=== PATIENT | female | born 1940 | race Caucasian/White ===

== ENCOUNTER 2023-06-08 12:44 | Outpatient (OUT) | payer MEDICARE, OTHER, SELFPAY ==
--- NOTE | 2023-06-08 12:47 | XR_ITS ---
[place] [id number] Patient Name: SHANNON ALVARADO MRN: [facility]:[id number] date: 1940 Sex: F Assigned Patient Location: RAD Current Patient Location: RAD Accession/Order Number: [id number] Exam Date: 06/08/2023 13:10 Report Date: 06/08/2023 13:33 At the request of: MISSAEL MICHAEL Procedure: XR DEXA axial skeleton EXAMINATION: XR DEXA axial skeleton HISTORY: Estrogen deficiency E28.39 COMPARISON: DEXA bone densitometry 04/24/2021 TECHNIQUE: Dual-energy X-ray absorptiometry (DXA) was performed. FINDINGS: SPINE ANALYSIS: Average bone mineral density is 1.118 g/cm2. T-score (standard deviation relative to young adult mean): -0.7 . -4.1 HIP ANALYSIS: Lowest bone mineral density is within the right femoral trochanter, 0.379 g/cm2. T-score (standard deviation relative to young adult mean): -4.1 . -15.6% change since prior study. XR/XR DEXA axial skeleton IMPRESSION: World [employer] Organization Classification: Osteoporosis - High Fracture Risk Electronically authenticated by: NEHA SALINAS Date: 06/08/2023 13:33
== END 2023-06-08 12:45 | disposition home or self-care (01) ==
LOC: RAD 12:44
PROVIDERS: PCP Internal Medicine; Visit Provider Internal Medicine
DX: E28.39 Other primary ovarian failure (principal); M81.0 Age-related osteoporosis without current pathological fracture
CPT/HCPCS: 77080

== ENCOUNTER 2023-07-22 07:26 | Outpatient (RCR) | payer MEDICARE, OTHER, SELFPAY ==
[2023-07-22] MEDS: ROMOSOZUMAB-AQQG 210 MG/2.34 ML SYRINGE INJ (12:11)
[2023-07-22 12:49] VITALS: BP 180/88; PULSE 68; RESP 20; TEMP 36.6; O2SAT 95
--- NOTE | 2023-07-22 12:57 | PC.NURSE ---
1100 Arrives in w/c with son. Alert oriented. 1115 Patient educated on Medication, importance of taking vit d and calcium. increasing oral fluids for 24-48 hours. Patient and son verbalize understanding 12:00 Medication administered sub q rt upper arm. 1220 No s/s of rxn. Released ambulatory
== END 2023-08-17 23:59 | disposition home or self-care (01) ==
LOC: INF 07:26
PROVIDERS: PCP Internal Medicine; Visit Provider Internal Medicine
DX: M81.0 Age-related osteoporosis without current pathological fracture (principal)
CPT/HCPCS: 96372; J3111

== ENCOUNTER 2023-08-19 07:32 | Outpatient (RCR) | payer MEDICARE, OTHER, SELFPAY ==
[2023-08-19] MEDS: ROMOSOZUMAB-AQQG 210 MG/2.34 ML SYRINGE SQ (11:13)
[2023-08-19 12:19] VITALS: BP 165/82; PULSE 55; RESP 16; TEMP 36.4; O2SAT 95
--- NOTE | 2023-08-19 12:20 | PC.NURSE ---
1055: Pt. to [facility] via w/c accompanied by son. VSS. Denies reaction to medication from past injection. 1113: Pt. medicated with Evenity 210mg IM to right arm x's 2 injections. No bleeding to sites. Pt. tolerated with min. c/o pain. 1115: D/c'd to home with son via w/c. Pt denies questions or needs.
== END 2023-09-16 23:59 | disposition home or self-care (01) ==
LOC: INF 07:32
PROVIDERS: PCP Internal Medicine; Visit Provider Internal Medicine
DX: M81.0 Age-related osteoporosis without current pathological fracture (principal)
CPT/HCPCS: 96372; J3111

== ENCOUNTER 2023-09-18 09:22 | Emergency (ER) | payer MEDICARE, OTHER, SELFPAY ==
[2023-09-18 09:30] VITALS: BP 200/80; PULSE 60; RESP 18; TEMP 36.7; O2SAT 95; BMI 26.8
--- NOTE | 2023-09-18 09:34 | XR_ITS ---
The [place] [id number] Patient Name: SHANNON ALVARADO MRN: [facility]:[id number] date: 1940 Sex: F Assigned Patient Location: ER Current Patient Location: ER Accession/Order Number: [id number] Exam Date: 09/18/2023 10:15 Report Date: 09/18/2023 12:32 At the request of: JONES SMITH Procedure: XR knee LT 4V EXAM: XR knee LT 4V 08/29/2023. COMPARISON STUDY: Left knee 08/07/2022. FINDINGS: AP, bilateral oblique, and lateral views for a total of five images were obtained. HISTORY: Fall, knee pain. XR/XR knee LT 4V IMPRESSION: 1. 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 Generalized osteopenia. 2. No convincing evidence of an acute fracture or dislocation. 3. A moderate-sized joint effusion is seen best on the lateral view. Electronically authenticated by: RAGHAVENDRA CLARK Date: 09/18/2023 12:32
--- NOTE | 2023-09-18 09:34 | XR_ITS ---
The [address] [address] Patient Name: SHANNON ALVARADO MRN: [facility]:[id number] date: 1940 Sex: F Assigned Patient Location: ER Current Patient Location: ER Accession/Order Number: [id number] Exam Date: 09/18/2023 10:15 Report Date: 09/18/2023 12:32 At the request of: JONES SMITH Procedure: XR hip RT 2V w/ pelvis EXAM: XR hip RT 2V w/ pelvis 09/18/2023 COMPARISON STUDY: CT of the pelvis 12/04/2019 FINDINGS: AP pelvis as well as frontal and frog-leg views of the right hip for 3 views obtained. HISTORY: fall, right hip injury XR/XR hip RT 2V w/ pelvis IMPRESSION: 1. No convincing evidence of an acute fracture or dislocation. 2. Chondrocalcinosis is identified with moderate arthritic changes about the pubic symphysis and mild symmetric arthritic changes about both SI joints. More severe arthritic changes about both hips are also again identified. This is similar to that seen on prior CT study from 12/04/2019. 3. The calcifications within the pelvis related to calcified uterine fibroids and pelvic phleboliths similar to that seen on prior study. Atherosclerosis with peripheral vascular arterial disease also noted. 4. Partial visualization of lumbar dextrocurvature with multilevel degenerative changes again noted. Electronically authenticated by: RAGHAVENDRA CLARK Date: 09/18/2023 12:32
[2023-09-18] MEDS: ACETAMINOPHEN 500 MG TABLET 1000 MG PO (09:48)
[2023-09-18 10:49] VITALS: BP 158/75; PULSE 58; RESP 18; O2SAT 95
--- NOTE | 2023-09-18 10:56 | ED_ITS ---
HPI - General Adult General Chief complaint: Extremity Injury, Lower Stated complaint: left knee pain Time Seen by Provider: 09/18/23 09:28 Source: patient Mode of arrival: ambulance Limitations: physical limitation History of Present Illness HPI narrative: the patient fell at home a few days ago and since then has been having pain and swelling in the left knee. She also sustained bruising to the anterior right thigh near the hip but denied any hip pain. 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 She told me that she has osteoarthritis and osteoporosis. She denied hitting her head or injuring the neck or back. She lives with her son, who cares for her. She uses a walker to ambulate. Related Data Home Medications Medication Instructions Recorded Confirmed amiodarone 200 mg tablet 100 mg PO .every other day 07/22/23 09/18/23 atorvastatin 40 mg tablet 40 mg PO .hs 07/22/23 09/18/23 calcium carbonate-vitamin D3 1 tab .Route BID 07/22/23 09/18/23 cholecalciferol (vitamin D3) 62.5 mcg PO 07/22/23 mcg (2,500 unit) capsule levetiracetam 500 mg tablet 500 mg PO Q12H 07/22/23 09/18/23 omeprazole 20 mg capsule,delayed 20 mg PO BID 07/22/23 09/18/23 release aspirin 81 mg tablet,delayed 81 mg PO DAILY 09/18/23 09/18/23 release (Adult Low Dose Aspirin) levetiracetam 250 mg tablet 500 mg PO Q12H 09/18/23 09/18/23 levothyroxine 75 mcg tablet 75 mcg PO Q24H 09/18/23 09/18/23 lisinopril 10 mg tablet 10 mg PO Q24H 09/18/23 09/18/23 Allergies Allergy/AdvReac Type Severity Reaction Status Date / Time penicillin G AdvReac Intermediate Verified 09/18/23 09:29 [facility] Social History Smoking status: Current every day smoker Exam Narrative Exam Narrative: Nurses note and vital signs reviewed and patient is not hypoxic. afebrile General: The patient appears well and in no apparent distress. Patient is resting comfortably on cart. GCS = 15. Skin: Warm, dry, no pallor noted. Head: Normocephalic, atraumatic Neck: Supple, trachea mid-line. Full ROM and no cervical spinal tenderness. Eyes: PERRLA, EOMI ENT: TMs clear, no hemotympanum detected, no blood in posterior oropharynx Cardiovascular: Regular Rate and Rhythm Respiratory: Patient is in no distress, no accessory muscle use, lungs are clear to auscultation, no wheezing, rales or rhonchi Chest Wall: no tenderness, no flail chest, contusion, abrasion, or signs of trauma. Back: No thoracic or lumbar tenderness to palpation. Negative straight leg raise bilaterally. Musculoskeletal: Tenderness and swelling to the left knee with pain with patellar manipulation. No left calf or popliteal tenderness. Normal ROM left LE but with pain in the knee. No sign of long bone fracture to the left hip, thigh, ankle and foot. Right hip and pelvis with no tenderness, no right LE swelling. Pulses at femoral, DP, PT, and popliteal were 2+ bilaterally. Moves upper extremities in all modalities with 5/5 strength. GI: Normal bowel sounds, no tenderness to palpation, no masses appreciated. No rebound, guarding, or rigidity noted. 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 Psychiatric: Cooperative Constitutional Vital Signs, click to edit/add: Last Vital Signs Temp 98.0 F 09/18/23 09:30 Pulse 58 L 09/18/23 10:49 Resp 18 09/18/23 10:49 BP 158/75 H 09/18/23 10:49 Pulse Ox 95 09/18/23 10:49 O2 Del Method Room Air 09/18/23 09:30 Course Vital Signs Vital signs: Vital Signs Temperature 98.0 F 09/18/23 09:30 Pulse Rate 60 09/18/23 09:30 Respiratory Rate 18 09/18/23 09:30 Blood Pressure 200/80 H 09/18/23 09:30 Pulse Oximetry 95 09/18/23 09:30 Oxygen Delivery Method Room Air 09/18/23 09:30 Temperature 98.0 F 09/18/23 09:30 Pulse Rate 58 L 09/18/23 10:49 Respiratory Rate 18 09/18/23 10:49 Blood Pressure 158/75 H 09/18/23 10:49 Pulse Oximetry 95 09/18/23 10:49 Oxygen Delivery Method Room Air 09/18/23 09:30 Medical Decision Making MDM Narrative Medical decision making narrative: xrays of the right hip/pelvis and the left knee are without fracture, dislocation, subluxation or other acute bony abnormality. She has marked osteoarthritis of all joints. Findings discussed with the patient and her son - patient able to be cared for at home by the son and can use the walker to assist with any necessary ambulation. Patient instructed to take Tylenol for pain and take all prescribed meds as scheduled. BP improved while in the ED. Imaging Data xr right hip/pelvis: Radiologist's impression: Patient: SHANNON ALVARADO MR#: [id number] : 1940 Acct:[id number] Age/Sex: 82 / F ADM Date: 09/18/23 Loc: ER Attending Dr: Ordering Physician: Jones Smith D.O. Date of Service: 09/18/23 Procedure(s): XR hip RT 2V w/ pelvis Accession Number(s): [id number] cc: ~ [place] [id number] Patient Name: SHANNON ALVARADO MRN: [id number] date: 1940 Sex: F Assigned Patient Location: ER Current Patient Location: ER Accession/Order Number: [id number] Exam Date: 09/18/2023 10:15 Report Date: 09/18/2023 11:36 At the request of: JONES SMITH Procedure: XR hip RT 2V w/ pelvis EXAM: XR hip RT 2V w/ pelvis 09/18/2023 COMPARISON STUDY: CT of the pelvis 12/04/2019 FINDINGS: AP pelvis as well as frontal and frog-leg views of the right hip for 3 views obtained. HISTORY: fall, right hip injury XR/XR hip RT 2V w/ pelvis IMPRESSION: 1. No convincing evidence of an acute fracture or dislocation. 2. Chondrocalcinosis is identified with moderate arthritic changes about the pubic symphysis and mild symmetric arthritic changes about both SI joints. More severe arthritic changes about both hips are also again identified. This is similar to that seen on prior CT study from 12/04/2019. 3. The calcifications within the pelvis related to calcified uterine fibroids and pelvic phleboliths similar to that seen on prior study. Atherosclerosis with peripheral vascular arterial disease also noted. 4. Partial visualization of lumbar dextrocurvature with multilevel degenerative changes again noted. Electronically authenticated by: RAGHAVENDRA CLARK Date: 09/18/2023 11:36 xr knee: Radiologist's impression: Patient: SHANONN ALVARADO MR#: [id number] : 1940 Acct:[id number] Age/Sex: 82 / F ADM Date: 09/18/23 Loc: ER Attending Dr: Ordering Physician: Jones Smith D.O. Date of Service: 09/18/23 Procedure(s): XR knee LT 4V Accession Number(s): [id number] cc: ~ [place] [id number] Patient Name: SHANNON ALVARADO MRN: [facility]:[id number] date: 1940 Sex: F Assigned Patient Location: ER Current Patient Location: ER Accession/Order Number: [id number] Exam Date: 09/18/2023 10:15 Report Date: 09/18/2023 11:24 At the request of: JONES SMITH Procedure: XR knee LT 4V EXAM: XR knee LT 4V 08/29/2023. COMPARISON STUDY: Left knee 08/07/2022. FINDINGS: AP, bilateral oblique, and lateral views for a total of five images were obtained. HISTORY: Fall, knee pain. XR/XR knee LT 4V IMPRESSION: 1. 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 Generalized osteopenia. 2. No convincing evidence of an acute fracture or dislocation. 3. A moderate-sized joint effusion is seen best on the lateral view. Electronically authenticated by: RAGHAVENDRAANGELLA CLARK Date: 09/18/2023 11:24 Discharge Plan Discharge Chief Complaint: Extremity Injury, Lower Clinical Impression: Left knee sprain, Contusion Patient Disposition: Home, Self-Care Time of Disposition Decision: 11:02 Prescriptions / Home Meds: No Action amiodarone 200 mg tablet 100 mg PO .every other day atorvastatin 40 mg tablet 40 mg PO .hs levetiracetam 500 mg tablet 500 mg PO Q12H omeprazole 20 mg capsule,delayed release(DR/EC) 20 mg PO BID cholecalciferol (vitamin D3) 62.5 mcg (2,500 unit) capsule PO calcium carbonate-vitamin D3 [Caltrate 600 plus D] 1 tab .Route BID levetiracetam 250 mg tablet 500 mg PO Q12H levothyroxine 75 mcg tablet 75 mcg PO Q24H lisinopril 10 mg tablet 10 mg PO Q24H aspirin [Adult Low Dose Aspirin] 81 mg tablet,delayed release (DR/EC) 81 mg PO DAILY Instructions: Knee Sprain (ED), Contusion in Adults (ED) Stand Alone Forms: Portal Instructions Referrals: MISSAEL MICHAEL [Primary Care Provider] - 1 week Discharge Date/Time: 09/18/23 11:12
== END 2023-09-18 11:12 | disposition home or self-care (01) ==
PROVIDERS: Emergency Provider Emergency Medicine; PCP Internal Medicine
DX: S83.92XA Sprain of unspecified site of left knee, initial encounter (principal); S80.02XA Contusion of left knee, initial encounter; W19.XXXA Unspecified fall, initial encounter; M19.90 Unspecified osteoarthritis, unspecified site; M81.0 Age-related osteoporosis without current pathological fracture; Z79.82 Long term (current) use of aspirin; Z79.890 Hormone replacement therapy; Z79.899 Other long term (current) drug therapy; F17.210 Nicotine dependence, cigarettes, uncomplicated
CPT/HCPCS: 73502; 73564; 99284

== ENCOUNTER 2023-09-23 07:34 | Outpatient (RCR) | payer MEDICARE, OTHER, SELFPAY ==
[2023-09-23] MEDS: ROMOSOZUMAB-AQQG 210 MG/2.34 ML SYRINGE SQ (11:17)
[2023-09-23 11:37] VITALS: BP 186/91; PULSE 64; RESP 16; TEMP 36.4; O2SAT 98
--- NOTE | 2023-09-23 11:39 | PC.NURSE ---
1048 Arrival per wheelchair accompanied by son. Alert oriented, offers no complaints. 1110 Injection to left upper arm as ordered, tolerated well 1120 Released per wheelchair with son.
== END 2023-09-23 11:20 | disposition home or self-care (01) ==
LOC: INF 07:34
PROVIDERS: PCP Internal Medicine; Visit Provider Internal Medicine
DX: M81.0 Age-related osteoporosis without current pathological fracture (principal)
CPT/HCPCS: 96372; J3111

== ENCOUNTER 2023-10-21 07:22 | Outpatient (RCR) | payer MEDICARE, OTHER, SELFPAY ==
[2023-10-21 10:33] VITALS: BP 161/76; PULSE 62; RESP 18; TEMP 36.8; O2SAT 95
[2023-10-21] MEDS: ROMOSOZUMAB-AQQG 210 MG/2.34 ML SYRINGE SQ (11:02)
== END 2023-11-17 23:59 | disposition home or self-care (01) ==
LOC: INF 07:22
PROVIDERS: PCP Internal Medicine; Visit Provider Internal Medicine
DX: M81.0 Age-related osteoporosis without current pathological fracture (principal)
CPT/HCPCS: 96372; J3111

== ENCOUNTER 2023-11-18 07:24 | Outpatient (RCR) | payer MEDICARE, OTHER, SELFPAY ==
[2023-11-18 10:45] VITALS: BP 127/78; PULSE 51; RESP 18; TEMP 36.4; O2SAT 96
[2023-11-18] MEDS: ROMOSOZUMAB-AQQG 210 MG/2.34 ML SYRINGE SQ (11:01)
--- NOTE | 2023-11-18 11:06 | PC.NURSE ---
Patient is here for evenity injection, she denies any complaints. She tolerated injection well and was discharged home via wheelchair.
== END 2023-11-18 11:15 | disposition home or self-care (01) ==
LOC: INF 07:24
PROVIDERS: PCP Internal Medicine; Visit Provider Internal Medicine
DX: M81.0 Age-related osteoporosis without current pathological fracture (principal)
CPT/HCPCS: 96372; J3111

== ENCOUNTER 2023-12-23 07:35 | Outpatient (RCR) | payer MEDICARE, OTHER, SELFPAY ==
[2023-12-23 10:52] VITALS: BP 143/75; PULSE 56; RESP 14; TEMP 36.2; O2SAT 97
--- NOTE | 2023-12-23 10:54 | PC.NURSE ---
1050: Pt. to [facility] via w/c for monthly injection. Accompanied by son. VSS. Denies needs or c/o.
[2023-12-23] MEDS: ROMOSOZUMAB-AQQG 210 MG/2.34 ML SYRINGE SQ (10:56)
--- NOTE | 2023-12-23 11:01 | PC.NURSE ---
1056: Medicated with Evenity SQ to right upper arm x 2 injection sites. Trace bleeding to site #1, bandaid applied. No bleeding to #2 injection site. Pt. tolerated without c/o. 1100: Pt without c/o or needs. no new bleeding to injection sites. D/c'd via w/c to home with son.
== END 2023-12-23 11:15 | disposition home or self-care (01) ==
LOC: INF 07:35
PROVIDERS: PCP Internal Medicine; Visit Provider Internal Medicine
DX: M81.0 Age-related osteoporosis without current pathological fracture (principal)
CPT/HCPCS: 96372; J3111

== ENCOUNTER 2024-05-28 17:12 | Emergency (ER) | payer MEDICARE, OTHER, SELFPAY ==
[2024-05-28] VITALS (16 sets, daily range): BP systolic 120–150; BP diastolic 57–87; PULSE 55–74; TEMP 36.4; O2SAT 88–98; BMI 28.6
--- NOTE | 2024-05-28 17:18 | XR_ITS ---
The [address] [address] Patient Name: SHANNON ALVARADO MRN: [facility]:[id number] date: 1940 Sex: F Assigned Patient Location: ED.MAIN Current Patient Location: ED.MAIN Accession/Order Number: [id number] Exam Date: 05/28/2024 17:25 Report Date: 05/28/2024 19:47 At the request of: SOLITARIO JO Procedure: XR hip RT min 2V IMAGES REVIEWED: XR hip RT min 2V COMPARISON: 09/18/2023. CLINICAL INDICATION: fall, pain FINDINGS/IMPRESSION: 1. Severe osteoarthritis right hip. 2. No evidence of acute osseous abnormality of the right hip. 3. Osteopenia. Electronically authenticated by: TUNDE BROWN Date: 05/28/2024 19:47
--- OUTSIDE RECORDS SUMMARY | 2024-05-28 17:24 | XMS_ITS | CCD ---
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 Tin Saldivar Referring Unavailable Farhad BOONE, Dr. Tin Saldivar Attending Unavailable Jamir BOONE, Dr. Fernando Beaver Primary Care Fatimah vailable Jamir BOONE, Dr. Fernando Beaver Primary Care Fatimah vailable Farhad BOONE, Dr. Tin Saldivar Referring Unavailable Farhad BOONE, Dr. Tin Saldivar Attending Unavailable Tin Curtis Admitting Unavail able Tin Curtis Attending Unavail able Fernando Bowie Primary Care Unavailable Tin Curtis Attending Unavail able Fernando Bowie Primary Care Unavailable Tin Curtis Admitting Unavail Fernando Fisher MD Primary Care Provider TIN CURTIS Referring Unavailable FERNANDO BOWIE Primary Care Unavailable TIN CURTIS Attending Unavailable FERNANDO BOWIE Primary Care Unavailable NEHA BELTRE Attending Unavailable FERNANDO BOWIE Attending Unavailable NEHA BELTRE Attending Unavailable MATEO DSOUZA Attending Unavailable NEHA BELTRE Attending Unavailable FERNANDO BOWIE Attending Unavailable FERNANDO BOWIE Attending Unavailable Allergies Allergy Classification Reported Allergen(s) Allergy Type Date of Onset Reaction(s) Facility (14 sources) meloxicam; Translations: [meloxicam] Drug Allergy 3 Diarrhea [facility] (12 sources) Penicillins; Translations: [Penicillins] Allergy to drug (finding) 0 Flushing, Edema, Swelling of Lip/Tongue/Thro at [facility] (1 source) meloxicam Drug Allergy [facility] (1 source) Penicillins Drug allergy (disorder) 6 [facility] (1 source) Penicillins Drug allergy (disorder) 0 [facility] (1 source) Penicillins Drug Allergy 3 Swelling, Other [facility] Work Phone: Medications Current Medications Medication Drug Class(es) Dates Sig (Normalized) Sig (Original) acetaminophen 325 mg / HYDROcodone bitartrate 5 mg oral tablet (4 sources) Opioid Agonist Start: 03-27-2019 take 0.5 tablet by mouth every four to six hours Hydrocodone-Acetami nophen ([place]) 5-325 mg Tablet Active 0.5 TAB PO EVERY 4-6 HOURS 7 3 December 12, 2019 amiodarone hydrochloride 200 mg oral tablet (16 sources) Antiarrhythmic Start: 10-01-2023 End: 03-01-2025 amiodarone (Pacerone) 200 mg tablet Indications: Paroxysmal atrial fibrillation (Multi) , High risk medication use Take 1 tablet (200 mg) by mouth once daily. Take one tablet alternating every other day with 1/2 tablet 90 tablet 3 03/01/2024 03/01/2025 Active Start: 08-11-2017 take 200 mg by mouth every other day Amiodarone Active 200 MG PO Q2D August 10, 2017 11:00pm alernate with 100mg Start: 08-11-2017 take 200 mg by mouth every other day Amiodarone Active 100 MG PO every other day August 10, 2017 11:00pm alternates QOD with 200mg Amiodarone HCl - 200 MG Oral Tablet TAKE 1 TABLET alternating with 1/2 tablet daily Quantity: 90 Refills: 1 Ordered: 11-Aug-2022 Geoff Neal APRN-Candie ORTIZ Active aspirin 81 mg delayed release oral tablet (13 sources) Platelet Aggregation Inhibitor, Nonsteroidal Anti-inflammatory Drug Start: 08-11-2017 take 81 mg by mouth once daily Aspirin Active 81 MG PO Daily August 10, 2017 11:00pm atorvastatin 40 mg oral tablet (13 sources) HMG-CoA Reductase Inhibitor Start: 08-11-2017 take 1 tablet by mouth once daily Atorvastatin (Lipitor) 40 mg Tablet Active 40 MG PO Daily August 10, 2017 11:00pm cholecalciferol 0.05 mg oral tablet (13 sources) Vitamin D Start: 12-12-2019 take 50 ug by mouth once daily Cholecalciferol (Vitamin D3) Active 50 MCG PO Daily December 12, 2019 12:00am End: 03-01-2024 take 1 tablet by mouth once daily cholecalciferol (Vitamin D-3) 5,000 Units tablet Take 1 tablet (5,000 Units) by mouth once daily. 03/01/2024 Discontinued (Therapy completed) docusate sodium 100 mg oral capsule (2 sources) Start: 12-12-2019 take 100 mg by mouth twice daily Docusate Sodium Active 100 MG PO Twice daily December 12, 2019 12:00am levETIRAcetam 500 mg oral tablet (13 sources) Start: 08-11-2017 take 500 mg by mouth every twelve hours Levetiracetam Active 500 MG PO Q12H August 10, 2017 11:00pm take 1 tablet by mouth twice fransisco ly levETIRAcetam (Keppra) 500 mg tablet Take 1 tablet (500 mg) by mouth 2 times a day. Active levothyroxine sodium 0.1 mg oral capsule (13 sources) l-Thyroxine Start: 08-11-2017 take 100 ug by mouth once daily Levothyroxine Active 100 MCG PO Daily August 10, 2017 11:00pm take 1 tablet by boone th once daily before mealtime levothyroxine (Synthroid, Levoxyl) 75 mc g tablet Take 1 tablet (75 mcg) by mouth once daily in the morning. Take before meals. Take on an empty stomach. Active lisinopril 10 mg oral tablet (13 sources) Angiotensin Converting Enzyme Inhibitor Start: 08-11-2017 take 10 mg by mouth once daily Lisinopril Active 10 MG PO Daily August 10, 2017 11:00pm omeprazole 20 mg delayed release oral tablet (13 sources) Proton Pump Inhibitor Start: 08-11-2017 take 1 tablet by mouth twice daily Omeprazole Magnesium (Prilosec Otc) 20 mg Tablet,Delayed Release (Dr/Ec) Active 20 MG PO Twice daily August 10, 2017 11:00pm take 1 tablet by mouth once fernanda y omeprazole OTC (PriLOSEC OTC) 20 mg EC tablet Take 1 tablet (20 mg) by mouth once daily. Active Completed/Discontinued Medications Medication Drug Class(es) Dates Sig (Normalized) Sig (Original) amLODIPine 2.5 mg oral tablet (13 sources) Dihydropyridine Calcium Channel Roberto Start: 08-11-2017 End: 12-12-2019 take 1 tablet by mouth once daily Amlodipine (Norvasc) 2.5 mg Tablet Discontinued 2.5 MG PO Daily August 10, 2017 11:00pm December 12, 2019 12:18pm Calcium Citrate + D3 200-250 MG-UNIT TABS (6 sources) Calcium Citrate + D3 200-250 MG-UNIT TABS TAKE 1 TABLET 3 times daily Quantity: 0 Refills: 0 Ordered: 06-Nov-2021 DO Active calcium citrate 1190 mg / cholecalciferol 0.005 mg oral tablet (7 sources) Vitamin D Start: 08-11-2017 End: 12-12-2019 take 1 tablet by mouth three times daily Calcium Citrate-Vitamin D3 (Citracal Regular) 250 mg calcium- 200 unit Tablet Discontinued 1 TAB PO Three times daily August 10, 2017 11:00pm December 12, 2019 12:18pm take 1 tablet by boone three times daily calcium citrate-vitamin D3 200 mg-6.25 m cg (250 unit) tablet Take 1 tablet by mouth 3 times a day. Active cephalexin 500 mg oral tablet (2 sources) Cephalosporin Antibacterial Start: 08-13-2017 End: 08-20-2017 take 500 mg by mouth four times daily Cephalexin Discontinued 500 MG PO Four times daily 28 7 August 12, 2017 11:00pm August 19, 2017 11:04pm 1 ml denosumab 60 mg/ml prefilled syringe (10 sources) RANK Ligand Inhibitor End: 03-01-2024 denosumab (Prolia) 60 mg/mL syringe Inject 1 mL (60 mg total) under the skin. Every 6 months 03/01/2024 Discontinued (Therapy completed) zinc gluconate 50 mg oral tablet (5 sources) take 1 tablet by mouth once daily Zinc 50 MG Oral Tablet TAKE 1 TABLET DAILY. Quantity: 0 Refills: 0 Ordered: 09-Dec-2022 DO Active Problems Active Problems Problem Classification Problem Date Documented Date Episodic/Chronic Acute cerebrovascular disease (20 sources) Cerebrovascular accident; Translations: [Cerebral artery occlusion, unspecified with cerebral infarction] Onset: 10-01-2023 03-01-2024 Chronic Cardiac dysrhythmias (19 sources) Paroxysmal atrial fibrillation; Translations: [Atrial fibrillation] Onset: 12-29-2022 03-01-2024 Chronic Chronic obstructive pulmonary disease and bronchiectasis (1 source) Chronic obstructive pulmonary disease with (acute) exacerbation; Translations: [COPD WITH ACUTE EXACERBATION] Onset: 12-29-2022 Chronic Diabetes mellitus with complications (1 source) Type 2 diabetes mellitus with diabetic chronic kidney disease; Translations: [TYPE 2 DM W/DIABETIC CKD] Onset: 12-29-2022 Chronic Diabetes mellitus without complication (1 source) Type 2 diabetes mellitus without complications; Translations: [TYPE 2 DM WITHOUT COMPLICATIONS] Onset: 08-10-2022 Chronic Disorders of lipid metabolism (15 sources) Hyperlipidemia; Translations: [Other and unspecified hyperlipidemia] Onset: 10-01-2023 03-01-2024 Chronic Epilepsy; convulsions (1 source) Epilepsy, unspecified, not intractable, without status epilepticus; Translations: [EPILEPSY UNS NOT INTRACT W/O SE] Onset: 12-29-2022 Chronic Essential hypertension (18 sources) Essential hypertension; Translations: [Unspecified essential hypertension] Onset: 08-10-2022 08-12-2017 Chronic Hypertension with complications and secondary hypertension (1 source) Hypertensive chronic kidney disease with stage 1 through stage 4 chronic kidney disease, or unspecified chronic kidney disease; Translations: [HTN CKD W/STAGE 1-4 CKD/UNS CKD] Onset: 12-29-2022 Chronic Malaise and fatigue (2 sources) Asthenia; Translations: [Weakness] 08-12-2017 Episodic Menopausal disorders (1 source) Hormone replacement therapy; Translations: [HORMONE REPLACEMENT THERAPY] Onset: 12-29-2022 Episodic Open wounds of head; neck; and trunk (2 sources) Tear of skin; Translations: [Skin tear] 11-19-2017 Episodic Osteoarthritis (2 sources) Bilateral primary osteoarthritis of knee; Translations: [Unilateral primary osteoarthritis, left knee] Onset: 08-10-2022 Chronic Other aftercare (11 sources) Drug therapy finding; Translations: [Long-term (current) use of other medications] Episodic Other aftercare (1 source) FDC (current) use of aspirin; Translations: [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 OF ASPIRIN] Onset: 12-29-2022 Episodic Other aftercare (2 sources) Taking high risk medication; Translations: [Other rat exterminator (current) drug therapy] Onset: 01-10-2024 03-01-2024 Episodic Other aftercare (4 sources) Other prison (current) drug therapy; Translations: [Other rat exterminator (current) drug therapy] Onset: 01-10-2024 Episodic Other and ill-defined cerebrovascular disease (1 source) Cerebrovascular disease, unspecified; Translations: [CEREBROVASCULAR DISEASE UNSPECIFIED] Onset: 12-29-2022 Chronic Other circulatory disease (2 sources) H/O: atrial fibrillation; Translations: [Personal history of other diseases of the circulatory system] 08-12-2017 Episodic Other injuries and conditions due to external causes (2 sources) Muscle strain; Translations: [Other injury of unspecified body region, initial encounter] 11-19-2017 Episodic Other injuries and conditions due to external causes (2 sources) Contusion; Translations: [Other injury of unspecified body region, initial encounter] 03-27-2019 Episodic Other nutritional; endocrine; and metabolic disorders (2 sources) Body mass index 25-29 - overweight; Translations: [Body Mass Index 28.0-28.9, adult] Episodic Other nutritional; endocrine; and metabolic disorders (11 sources) Overweight; Translations: [Overweight] Episodic Other nutritional; endocrine; and metabolic disorders (9 sources) Overweight in adulthood with body mass index of 25 or more but less than 30; Translations: [Body Mass Index 28.0-28.9, adult] Episodic Residual codes; unclassified (2 sources) Dependence on wheelchair; Translations: [Wheelchair dependence] Chronic Residual codes; unclassified (10 sources) Other specified health status; Translations: [Anticoagulant not tolerated] Onset: 01-10-2024 01-10-2024 Episodic Skin and subcutaneous tissue infections (2 sources) Cellulitis of lower limb; Translations: [Cellulitis of left lower limb] 08-12-2017 Episodic Sprains and strains (2 sources) Strain of neck muscle; Translations: [Strain of muscle, fascia and tendon at neck level, initial encounter] 12-12-2019 Episodic Substance-related disorders (17 sources) Smokes tobacco daily; Translations: [Tobacco use disorder] Onset: 12-29-2022 08-12-2017 Chronic Comment on above: 4-5 CIGARETTES DAILY ; 2-3 CIGARETTES DAILY ; Superficial injury; contusion (2 sources) Contusion of scalp; Translations: [Contusion of scalp, initial encounter] 12-12-2019 Episodic Unclassified (3 sources) COUGH, UNSPECIFIED; Translations: [COUGH, UNSPECIFIED] Onset: 12-29-2022 Unclassified (1 source) CHRN KIDNEY DISEASE STG 3 UNSP; Translations: [CHRN KIDNEY DISEASE STG 3 UNSP] Onset: 12-29-2022 Unclassified (1 source) CONTACT W/AND (SUSP) EXPOS COVID-19; Translations: [CONTACT W/AND (SUSP) EXPOS COVID-19] Onset: 12-29-2022 Past or Other Problems Problem Classification Problem Date Documented Date Episodic/Chronic Other non-traumatic joint disorders (4 sources) Pain in left knee; Translations: [PAIN IN LEFT KNEE] Onset: 08-07-2022 Episodic Other screening for suspected conditions (not mental disorders or infectious disease) (10 sources) Echocardiogram abnormal; Translations: [Nonspecific (abnormal) findings on radiological and other examination of other intrathoracic organs] Onset: 10-01-2023 10-01-2023 Episodic Unclassified (1 source) COUGH, UNSPECIFIED; Translations: [COUGH, UNSPECIFIED] Onset: 12-28-2022 Unclassified (1 source) Onset: 03-01-2024 03-01-2024 Results Test Name Value Interpretation Reference Range Facility ECG 12 [place] 03-02-2024 Sinus bradycardia with first-degree AV block Left anterior fascicular block LVH with secondary ST changes QTc 476 ms [facility] Work Phone: XR Chest 2 Viewson 4 These images are not reportable by radiology and will not be interpreted by Radiologists. IMAGING Aspartate Amino Transferaseo n 11-08-2023 AST [Catalytic activity/Vol] 12 U/L Low 13-39 [facility] Comment on above: Performed By: #### B MP, AST, TSH3 #### [facility] [address] Basic Metabolic Panelon 10-19 Anion gap [Moles/Vol] 9.7 mmol/L Normal 6.0-15.0 [facility] Comment on above: Performed By: #### B MP, AST, TSH3 #### [facility] [address] Calcium [Mass/Vol] 9.2 mg/dL Normal 8.6-10.3 [facility] Comment on above: Performed By: #### B MP, AST, TSH3 #### [facility] [address] Chloride [Moles/Vol] 110 mmol/L High 98-107 [facility] Comment on above: Performed By: #### B MP, AST, TSH3 #### [address] CO2 [Moles/Vol] 28.4 mmol/L Normal 21.0-31.0 [facility] Comment on above: Performed By: #### B MP, AST, TSH3 #### [address] Creatinine [Mass/Vol] 0.96 mg/dL Normal 0.60-1.20 [facility] Comment on above: Performed By: #### B MP, AST, TSH3 #### [place] [address] [place] GFR/1.73 sq M.predicted MDRD (S/P/Bld) [Vol rate/Area] 58.341 mL/min/{1.73_m2} Normal [facility] Comment on above: Performed By: #### B MP, AST, TSH3 #### [address] Glucose [Mass/Vol] 91 mg/dL Normal 70-100 [facility] Comment on above: Result Comment: [facility] Glucose Reference Range is dependent on time and content of last meal. Glucose of more than 200 mg/dL in a nonstressed, ambulatory subject supports the diagnosis of Diabetes Mellitus. ADA recommended reference range Performed By: #### B MP, AST, TSH3 #### [facility] [address] [place] [address] Potassium [Moles/Vol] 4.1 mmol/L Normal 3.5-5.1 [facility] Comment on above: Performed By: #### B MP, AST, TSH3 #### [address] Sodium [Moles/Vol] 144 mmol/L Normal 136-145 [facility] Comment on above: Performed By: #### B MP, AST, TSH3 #### [address] Urea nitrogen [Mass/Vol] 20 mg/dL Normal 7-25 [facility] Comment on above: Performed By: #### B MP, AST, TSH3 #### [address] Thyroid Stimulating Hormoneo n 11-08-2023 TSH Qn 0.92 m[IU]/L Normal 0.45-5.33 [facility] Comment on above: Result Comment: PERF ORMED BY: [place] [address] PATHOLOGIST ARMORING MACHINE OPERATOR SANTHOSH MOSQUEDA M.D. Performed By: #### B MP, AST, TSH3 #### [address] XR chest 2V*on 11-08-2023 XR chest 2V* [facility] Main [place] [address] [place] [address] XRay Report Signed Patient: Mandeep Alvarado MR#: [id number] : 1940 Acct:[id number] Age/Sex: 82 / F ADM Date: 11/08/23 Loc: RT Room: Type: [facility] Attending Dr: Tin Curtis MD Copies to: Tin Curtis MD Ordering Provider: Tin Curtis MD Date of Service: 11/08/23 XR/XR chest 2V*: [id number] Plain film chest 2 view HISTORY: High risk medication usage COMPARISON: 03/26/23 FINDINGS: SUPPORT DEVICES: None POSTSURGICAL CHANGES: None HEART: Within normal limits PULMONARY DOUG: Within normal limits MEDIASTINUM: Atherosclerosis thoracic aorta. LUNGS AND PLEURA: No acute lung process, pleural effusion or pneumothorax identified. Similar mild interstitial prominence BONY STRUCTURES: Intact ADDITIONAL FINDINGS None XR/XR chest 2V* IMPRESSION: No acute process. Impression dictated by: Haris Rivera M.D.11/08/2023 3:19 PM Dictation Location: [facility] Transcribed By: [facility] 11/08/23 1519 Dictated By: Haris Rivera DO 11/08/23 1519 Signed By: 11/08/23 1519 [facility] Height or Weight NOT Doneon 06-04-2023 Fall risk assessment a) No falls within the last year [facility] [employer] 250 DO Work Phone: Tobacco use status [facility] a) Yes M [facility] [employer] y 250 DO Work Phone: Height or Weight NOT Done Yes [facility] [employer] 250 DO Work Phone: Office Visit (Cardiology)on 06-04-2023 Follow-up visit Diagnoses/Problems Assessed Essential hypertension (401.9) (I10) CVA (cerebral vascular accident) (434.91) (I63.9) Anticoagulant not tolerated (V49.89) (Z78.9) Acute intra-cranial hemorrhage (432.9) (I62.9) Hyperlipidemia (272.4) (E78.5) Paroxysmal atrial fibrillation (427.31) (I48.0) High risk medication use (V58.69) (Z79.899) Current every day smoker (305.1) (F17.200) 2-3 CIGARETTES DAILY Orders CVA (cerebral vascular accident) Changed: From Aspirin EC 81 MG TBEC TAKE 1 TABLET DAILY To Aspirin Adult Low Strength 81 MG Oral Tablet Delayed Release Take 1 tablet daily Hyperlipidemia Changed: From Lipitor 40 MG Oral Tablet TAKE 1 TABLET AT BEDTIME To Atorvastatin Calcium 40 MG Oral Tablet (Lipitor) TAKE 1 TABLET AT BEDTIME Paroxysmal atrial fibrillation IO EKG Electrocardiogram- 12 Lead; Status:Complete; Done: [id number] SocHx: Current every day smoker You need to quit smoking.; Status:Complete - Retrospective Authorization; Done: [id number] Tobacco Use Screening; Status:Complete; Done: [id number] Patient Instructions Please bring all medicines, vitamins, and herbal supplements with you when you come to the office. Prescriptions will not be filled unless you are compliant with your follow up appointments or have a follow up appointment scheduled as per instruction of your physician. Refills should be requested at the time of your visit. Follow up in 9 months Amiodarone follow up as directed Chief Complaint MANDEEP ALVARADO is being seen for a 6 month follow-up of. History of Present Illness Patient returns for follow-up of problems as noted. In the interim she is done well. Her cardiac risk factors which include hypertension and hyperlipidemia are well controlled. She has had no paroxysms of atrial fibrillation on amiodarone and this high risk medication is well-tolerated with recent testing demonstrating no evidence of endorgan effect caused by the agents. She reminds me that she had a stroke followed by intracranial hemorrhage and hence she is very reluctant to take anticoagulants and I concur. Overall she is doing well but we know she continues to smoke and the importance of smoking cessation was emphasized. Surgical History Problems History of Complete colonoscopy ONSET DATE [id number] Current Meds Medication NameInstruction Amiodarone HCl - 200 MG Oral TabletTAKE 1 TABLET alternating with 1/2 tablet daily amLODIPine Besylate 2.5 MG Oral TabletTAKE 1 TABLET DAILY. Aspirin EC 81 MG TBECTAKE 1 TABLET DAILY. Calcium Citrate + D3 200-250 MG-UNIT TABSTAKE 1 TABLET 3 times daily Keppra 500 MG Oral TabletTAKE 1 TABLET TWICE DAILY DIRECTED. Levothyroxine Sodium 75 MCG Oral TabletTAKE 1 TABLET DAILY. Lipitor 40 MG Oral TabletTAKE 1 TABLET AT BEDTIME. Lisinopril 10 MG Oral TabletTAKE 1 TABLET DAILY. PriLOSEC OTC 20 MG Oral Tablet Delayed ReleaseTAKE 1 TABLET DAILY. Prolia 60 MG/ML Subcutaneous Solution Prefilled Syringeinject every 6 months Vitamin D3 125 MCG (5000 UT) Oral TabletTake 1 tablet daily Zinc 50 MG Oral TabletTAKE 1 TABLET DAILY. Allergies Medication meloxicam Allergy; Diarrhea; Recorded By: Padmini Park; 10/06/2021 11:47:02 AM Penicillins Allergy; Edema; Flushing; Recorded By: Katie Plaza; 11/24/2021 10:39:10 AM Social History Problems Caffeine use (V49.89) (Z78.9) 1 CUP OF COFFEE DAILY, 1 CAN SODA DAILY Current every day smoker (305.1) (F17.200) 2-3 CIGARETTES DAILY No alcohol use No illicit drug use Review of Systems Constitutional: not feeling tired. Eyes: no eyesight problems. ENT: no hearing loss and no nosebleeds. Cardiovascular: no intermittent leg claudication and as noted in HPI. Respiratory: no chronic cough and no shortness of breath. Gastrointestinal: no change in bowel habits and no blood in stools. Genitourinary: no urinary frequency. Skin: no skin rashes. Neurological: no seizures and no frequent falls. Psychiatric: no depression and not suicidal. All other systems have been reviewed and are negative for complaint. Vitals Vital Signs Recorded: [id number] 02:45PM Heart Rate52, Apical Rivoenmg138, LUE, Sitting Hgragzayx37, LUE, Sitting Height5 ft 5 in Height or Weight NOT DoneMedical Reason Not Done Tobacco Usea) Yes Patient encouraged to stop using tobacco productsYes Falls Screening (Age 18+)a) No falls within the last year EKG done in office today Physical Exam Constitutional: alert and in no acute distress. Eyes: no erythema, swelling or discharge from the eye . Neck: neck is supple, symmetric, trachea midline, no masses and no thyromegaly . Pulmonary: no increased work of breathing or signs of respiratory distress and lungs clear to auscultation. Cardiovascular: carotid pulses 2+ bilaterally with no bruit , JVP was normal, no thrills , regular rhythm, normal S1 and S2, no murmurs , pedal pulses 2+ bilaterally and no edema . Abdomen: abdomen non-tender, no masses and no hepatomegaly . (more content not included)... Normal [facility] Aspartate Amino Transferaseo n 03-26-2023 AST [Catalytic activity/Vol] 14 U/L Normal 13-39 [facility] Comment on above: Performed By: #### T SH3, AST, BMP #### [facility] [address] [place] [id number] [facility] Basic Metabolic Panelon 06-0 Anion gap [Moles/Vol] 11.0 mmol/L Normal 6.0-15.0 [facility] Comment on above: Performed By: #### T SH3, AST, BMP #### [facility] [address] [place] [id number] [place] Calcium [Mass/Vol] 9.3 mg/dL Normal 8.6-10.3 [facility] Comment on above: Performed By: #### T SH3, AST, BMP #### [facility] [address] [place] [address] [place] Chloride [Moles/Vol] 107 mmol/L Normal 98-107 [facility] Comment on above: Performed By: #### T SH3, AST, BMP #### [facility] [address] CO2 [Moles/Vol] 29.5 mmol/L Normal 21.0-31.0 [facility] Comment on above: Performed By: #### T SH3, AST, BMP #### [facility] [address] [place] [address] [place] Creatinine [Mass/Vol] 1.07 mg/dL Normal 0.60-1.20 [facility] Comment on above: Performed By: #### T SH3, AST, BMP #### [place] [address] [place] GFR/1.73 sq M.predicted MDRD (S/P/Bld) [Vol rate/Area] 51.220 mL/min/{1.73_m2} Normal [facility] Comment on above: Performed By: #### T SH3, AST, BMP #### [facility] [address] [place] [address] [place] Glucose [Mass/Vol] 97 mg/dL Normal 70-100 [facility] Comment on above: Result Comment: [place] Glucose Reference Range is dependent on time and content of last meal. Glucose of more than 200 mg/dL in a nonstressed, ambulatory subject supports the diagnosis of Diabetes Mellitus. ADA recommended reference range Performed By: #### T SH3, AST, BMP #### [facility] [address] Potassium [Moles/Vol] 4.5 mmol/L Normal 3.5-5.1 [facility] Comment on above: Performed By: #### T SH3, AST, BMP #### [facility] [address] Sodium [Moles/Vol] 143 mmol/L Normal 136-145 [facility] Comment on above: Performed By: #### T SH3, AST, BMP #### [facility] [address] Urea nitrogen [Mass/Vol] 20 mg/dL Normal 7-25 [facility] Comment on above: Performed By: #### T SH3, AST, BMP #### [facility] [address] [place] [address] Thyroid Stimulating Hormoneo n 03-26-2023 TSH Qn 0.62 m[IU]/L Normal 0.45-5.33 [facility] Comment on above: Result Comment: PERF ORMED BY: [place] [address] PATHOLOGIST ARMORING MACHINE OPERATOR SANTHOSH MOSQUEDA M.D. Performed By: #### T SH3, AST, BMP #### [facility] [address] [place] [address] XR chest 2V*on 03-26-2023 XR chest 2V* [facility] Main [place] [address] [place] [address] XRay Report Signed Patient: Mandeep Alvarado MR#: [id number] : 1940 Acct:[id number] Age/Sex: 82 / F ADM Date: 03/26/23 Loc: RT Room: Type: [facility] Attending Dr: Tin Curtis MD Copies to: Tin Curtis MD Ordering Provider: Tin Curtis MD Date of Service: 03/26/23 XR/XR chest 2V*: Z79.899, I48.0 Plain film chest 2 view HISTORY: Follow-up for atrial fibrillation COMPARISON: 09/03/2022 FINDINGS: SUPPORT DEVICES: None POSTSURGICAL CHANGES: None HEART: Within normal limits PULMONARY DOUG: Within normal limits MEDIASTINUM: Unremarkable LUNGS AND PLEURA: No acute lung process, pleural effusion or pneumothorax identified. Similar interstitial prominence BONY STRUCTURES: Thoracic spondylosis and old thoracic compression fractures. ADDITIONAL FINDINGS None XR/XR chest 2V* IMPRESSION: No acute process. Stable chronic findings Impression dictated by: Haris Rivera M.D.03/26/2023 4:00 PM Dictation Location: [place] [address] Transcribed By: [facility] 03/26/23 1600 Dictated By: Haris Rivera DO 03/26/23 1559 Signed By: 03/26/23 1600 [facility] BNPon 12-28-2022 Natriuretic peptide B (Bld) [Mass/Vol] 378.0 pg/mL Normal <=1,800.0 [facility] Comment on above: Performed By: #### C MP, HSTROPN, BNP #### [facility] [address] [place] [address] Dr. Brady Morales CBC AUTO DIFFon 12-28-2022 BASO # 0.1 103/ul Normal 0.0-0.1 [facility] Comment on above: Performed By: #### C BC #### [facility] [address] [place] [address] Dr. Brady Morales Basophils/100 WBC (Bld) 0.9 % Normal 0.2-2.0 [facility] Comment on above: Performed By: #### C BC #### [facility] [address] [place] [address] Dr. Brady Morales EO # 0.1 103/ul Normal 0.0-0.7 [facility] Comment on above: Performed By: #### C BC #### [facility] [address] [place] [address] Dr. Brady Morales Eosinophils/100 WBC (Bld) 1.2 % Normal 0.9-7.0 [facility] Comment on above: Performed By: #### C BC #### [facility] [address] [place] [address] Dr. Brady Morales Erythrocyte distribution width (RBC) [Ratio] 14.0 % Normal 11.0-15.0 [facility] Comment on above: Performed By: #### C BC #### [facility] [address] [place] [address] Dr. Brady Morales Hematocrit (Bld) [Volume fraction] 43.8 % Normal 36.0-48.0 [facility] Comment on above: Performed By: #### C BC #### [facility] [address] [place] [address] Dr. Brady Morales Hemoglobin (Bld) [Mass/Vol] 14.1 g/dL Normal 12.0-16.0 [facility] Comment on above: Performed By: #### C BC #### [facility] [address] [place] [address] Dr. Brady Morales IG # 0.04 10e3/ul Critically high 0.00-0.03 [facility] Comment on above: Performed By: #### C BC #### [facility] [address] [place] [address] Dr. Brady Morales IG % 0.6 % Critically high 0.0-0.5 [facility] Comment on above: Performed By: #### C BC #### [facility] [address] [place] [address] Dr. Brady Morales LYMPH # 2.2 103/ul Normal 1.2-3.8 [facility] Comment on above: Performed By: #### C BC #### [facility] [address] [place] [address] Dr. Brady Morales Lymphocytes/100 WBC (Bld) 34.6 % Normal 20.5-60.0 [facility] Comment on above: Performed By: #### C BC #### [facility] [address] [place] [address] Dr. Brady Morales MANUAL DIFF REQ NO Normal [facility] Comment on above: Performed By: #### C BC #### [facility] [address] [place] [address] Dr. Brady Morales MCH (RBC) [Entitic mass] 30.4 pg Normal 26.7-34.0 [facility] Comment on above: Performed By: #### C BC #### [facility] [address] [place] [address] Dr. Brady Morales MCHC (RBC) [Mass/Vol] 32.2 g/dL Normal 29.9-35.2 [facility] Comment on above: Performed By: #### C BC #### [facility] [address] [place] [address] Dr. Brady Morales MCV (RBC) [Entitic vol] 94.4 fL Normal 81.0-99.0 [facility] Comment on above: Performed By: #### C BC #### [facility] [address] [place] [address] Dr. Brady Morales MONO # 0.4 103/ul Normal 0.3-0.8 [facility] Comment on above: Performed By: #### C BC #### [facility] [address] [place] [address] Dr. Brady Morales Monocytes/100 WBC (Bld) 6.1 % Normal 1.7-12.0 [facility] Comment on above: Performed By: #### C BC #### [facility] [address] [place] [address] Dr. Brady Morales NEUT # 3.6 103/ul Normal 1.4-6.5 [facility] Comment on above: Performed By: #### C BC #### [facility] [address] [place] [address] Dr. Brady Morales Neutrophils/100 WBC (Bld) 56.6 % Normal 43.0-75.0 [facility] Comment on above: Performed By: #### C BC #### [facility] [address] [place] [address] Dr. Brady Morales Platelet mean volume (Bld) [Entitic vol] 10.5 fL Normal 9.5-13.5 [facility] Comment on above: Performed By: #### C BC #### [facility] [address] [place] [address] Dr. Brady Morales PLT 191 103/ul Normal 150-450 [facility] Comment on above: Performed By: #### C BC #### [facility] [address] [place] [address] Dr. Brady Morales RBC 4.64 106/ul Normal 4.20-5.40 [facility] Comment on above: Performed By: #### C BC #### [facility] [address] [place] [address] Dr. Brady Morales WBC 6.4 103/ul Normal 4.0-11.0 [facility] Comment on above: Performed By: #### C BC #### [facility] [address] [place] [address] Dr. Brady Morales Covid-19 PCR ([facility])on 12-16 SARS-CoV-2 (COVID-19) RNA MAKAYLA+probe Ql (Unsp spec) Not detected Normal NOT DETECTED [facility] Comment on above: Result Comment: When diagnostic testing is negative, the possibility of a false negative should be considered in the context of a patient's recent exposures and the presence of clinical signs and symptoms consistent with SARS-CoV-2. This test is not yet approved or cleared by the [place] FDA. When there are no FDA-approved or cleared tests available, and other criteria are met, FDA can make tests available under an emergency access mechanism called an Emergency Use Authorization (EUA). The EUA for this test is supported by the [employer] of Health and Human Service's declaration that circumstances exist to justify the emergency use of in vitro diagnostics for the detection and/or diagnosis of the virus that causes COVID-19. This EUA will remain in effect for the duration of the COVID-19 declaration justifying emergency of IVDs, unless it is terminated or revoked by the FDA (after which the test may no longer be used). Performed By: #### C VDTBH #### [facility] [address] [place] [address] Dr. Brady Morales PROF 14(COMP METB)on 023 Albumin [Mass/Vol] 3.4 g/dL Normal 3.4-5.0 [facility] Comment on above: Performed By: #### C MP, HSTROPN, BNP #### [facility] [address] [place] [address] Dr. Brady Morales Albumin/Globulin [Mass ratio] 1.0 {ratio} Normal [facility] Comment on above: Performed By: #### C MP, HSTROPN, BNP #### [facility] [address] [place] [address] Dr. Brady Morales ALP [Catalytic activity/Vol] 58 U/L Normal 46-116 [facility] Comment on above: Performed By: #### C MP, HSTROPN, BNP #### [facility] [address] [place] [address] Dr. Brady Morales ALT [Catalytic activity/Vol] 21 U/L Normal 14-59 [facility] Comment on above: Performed By: #### C MP, HSTROPN, BNP #### [facility] [address] [place] [address] Dr. Brady Morales Anion gap [Moles/Vol] 9.5 mmol/L Normal [facility] Comment on above: Performed By: #### C MP, HSTROPN, BNP #### [facility] [address] [place] [address] Dr. Brady Morales AST [Catalytic activity/Vol] 19 U/L Normal 15-37 [facility] Comment on above: Performed By: #### C MP, HSTROPN, BNP #### [facility] [address] [place] [address] Dr. Brady Morales Bilirubin [Mass/Vol] 0.3 mg/dL Normal 0.2-1.0 [facility] Comment on above: Performed By: #### C MP, HSTROPN, BNP #### [facility] [address] [place] [address] Dr. Brady Morales Calcium [Mass/Vol] 9.4 mg/dL Normal 8.5-10.1 [facility] Comment on above: Performed By: #### C MP, HSTROPN, BNP #### [facility] [address] [place] [address] [address] Brady Morales Chloride [Moles/Vol] 108 mmol/L Critically high 98-107 [facility] Comment on above: Performed By: #### C MP, HSTROPN, BNP #### [facility] [address] [place] [address] [address] Brady Morales CO2 [Moles/Vol] 28.5 mmol/L Normal 21.0-32.0 [facility] Comment on above: Performed By: #### C MP, HSTROPN, BNP #### [facility] [address] [place] [address] [address] Brady Morales Creatinine [Mass/Vol] 0.89 mg/dL Normal 0.55-1.02 [facility] Comment on above: Performed By: #### C MP, HSTROPN, BNP #### [facility] [address] [place] [address] Dr. Brady Morales EGFR-AF VIETNAMESE >60 Normal >=60 [facility] Comment on above: Performed By: #### C MP, HSTROPN, BNP #### [facility] [address] [place] [address] [address] Brady Morales EGFR-NON AF VIETNAMESE =60 Normal >=60 [facility] Comment on above: Performed By: #### C MP, HSTROPN, BNP #### [facility] [address] [place] [address] [address] Brady Morales Globulin (S) [Mass/Vol] 3.3 g/dL Normal [facility] Comment on above: Performed By: #### C MP, HSTROPN, BNP #### [facility] [address] [place] [address] [address] Brady Morales Glucose [Mass/Vol] 101 mg/dL Normal 74-106 [facility] Comment on above: Performed By: #### C MP, HSTROPN, BNP #### [facility] [address] [place] [address] [address] Brady Morales Potassium [Moles/Vol] 4.0 mmol/L Normal 3.5-5.1 [facility] Comment on above: Performed By: #### C MP, HSTROPN, BNP #### [facility] [address] [place] [address] Dr. Brady Morales Protein [Mass/Vol] 6.7 g/dL Normal 6.4-8.2 [facility] Comment on above: Performed By: #### C MP, HSTROPN, BNP #### [facility] [address] [place] [address] Dr. Brady Morales Sodium [Moles/Vol] 142 mmol/L Normal 136-145 [facility] Comment on above: Performed By: #### C MP, HSTROPN, BNP #### [facility] [address] [place] [address] Dr. Brady Morales Urea nitrogen [Mass/Vol] 22.0 mg/dL Critically high 7.0-18 .0 [facility] Comment on above: Performed By: #### C MP, HSTROPN, BNP #### [facility] [address] [place] [address] Dr. Brady Morales Urea nitrogen/Creatinine [Mass ratio] 24.7 mg/mg Normal [facility] Comment on above: Performed By: #### C MP, HSTROPN, BNP #### [facility] [address] [place] [address] Dr. Brady Morales PROTIMEon 12-28-2022 INR Coag (PPP) [Relative time] {INR} Normal [facility] Comment on above: Performed By: #### P TT, PT #### [facility] [address] [place] [address] Dr. Brady Morales INR GUIDELINES SEE BELOW Normal [facility] Comment on above: Result Comment: PIERRE RED INR: 2.0 - 3.0 CONDITIONS NOT LISTED BELOW 2.5 - 3.5 FOR PROSTHETIC HEART VALVE REPLACEMENT 2.5 - 3.5 RECURRENT THROMBOSIS Performed By: #### P TT, PT #### [facility] [address] [place] [address] Dr. Brady Morales PT Coag (PPP) [Time] 9.8 s Normal 9.0-11.6 [facility] Comment on above: Performed By: #### P TT, PT #### [facility] [address] [place] [id number] Brady Morales PTTon 12-28-2022 aPTT Coag (Bld) [Time] 25.4 s Normal 22.3-36.2 [facility] Comment on above: Performed By: #### P TT, PT #### [facility] [address] [place] [address] [address] Brady Morales TROPONIN, HIGH SENSITIVITYon 12-28-2022 HSTROP 11.6 pg/mL Normal 4.0-51.3 [facility] Comment on above: Result Comment: CUT- OFF POINTS HAVE BEEN ESTABLISHED BASED ON THE FOURTH UNIVERSAL DEFINITIONS OF MYOCARDIAL INFARCTION. THE UPPER REFERENCE LIMIT (URL) OF TROPONIN, DEFINED THE 99TH PERCENTILE OF cTnI DISTRIBUTION IN A REFERENCE POPULATION, HAS BEEN CONFIRMED THE DECISION THRESHOLD FOR [place] DIAGNOSIS. Performed By: #### C MP, HSTROPN, BNP #### [facility] [address] [place] [address] Dr. Brady Morales XR CHEST 1 Von 12-28-2022 XR CHEST 1 V EXAM: XR CHEST 1 V HISTORY: Cough. COMPARISON: None. TECHNIQUE: AP erect portable view of the chest performed. FINDINGS: The trachea air column is within normal limits. The cardiac silhouette is upper limits normal size. There is mild atheromatous calcification at the aortic arch. The hilar shadows are unremarkable. The lung volumes are diminished. There is no consolidation or infiltrate. There is no pleural effusion or pulmonary vascular congestion. There is no pneumothorax. The bony structures are osteopenic. There are mild degenerative changes at the right acromioclavicular articulation. There is loss of the right acromiohumeral interval suggesting a chronic tear of the rotator cuff. IMPRESSION: There is no acute cardiopulmonary process. Electronically authenticated by: SERENA DE JESUS Date: 2022-12-28 15:33 Normal [facility] Height or Weight NOT Doneon 12-09-2022 Adult depression screening assessment No [facility] y 250 DO Work Phone: Fall risk assessment a) No falls within the last year [facility] y 250 DO Work Phone: Tobacco use status CP a) Yes M [facility] y 250 DO Work Phone: Height or Weight NOT Done Yes -[facility] y 250 DO Work Phone: Office Visit (Cardiology)on 12-09-2022 Follow-up visit Diagnoses/Problems Assessed Anticoagulant not tolerated (V49.89) (Z78.9) CVA (cerebral vascular accident) (434.91) (I63.9) Essential hypertension (401.9) (I10) Hyperlipidemia (272.4) (E78.5) High risk medication use (V58.69) (Z79.899) Paroxysmal atrial fibrillation (427.31) (I48.0) Current every day smoker (305.1) (F17.200) 4-5 CIGARETTES DAILY Acute intra-cranial hemorrhage (432.9) (I62.9) Orders Paroxysmal atrial fibrillation IO EKG Electrocardiogram- 12 Lead; Status:Complete; Done: [id number] SocHx: Current every day smoker Tobacco Use Screening; Status:Complete; Done: [id number] Patient Instructions Please bring all medicines, vitamins, and herbal supplements with you when you come to the office. Prescriptions will not be filled unless you are compliant with your follow up appointments or have a follow up appointment scheduled as per instruction of your physician. Refills should be requested at the time of your visit. Follow up in 6 months Amiodarone follow-up per routine Chief Complaint MANEDEP ALVARADO is being seen for a 6 month follow-up of. History of Present Illness Patient returns in follow-up of problems as noted. In the interim she is done relatively well. She denies any symptoms of paroxysmal atrial fibrillation and it appears that amiodarone has been effective at maintaining sinus rhythm and mitigating most of her stroke risk. Amiodarone surveillance laboratories, chest x-ray, and pulmonary function studies are reviewed with her and the results are satisfactory no adjustments in therapy appear necessary In regards to other cardiac risk factors are hypertension and hyperlipidemia appear to be well controlled. In the past she had a stroke with post infarct bleed which was complicated by antithrombotic therapy. Because of this she is extremely adverse to anticoagulant therapy and I concur with her feelings in this regard. She is willing to accept any residual risk associated with her potential for paroxysmal atrial fibrillation. Continues to smoke, and the merits of diet exercise weight loss and in particular smoking cessation were emphasized. Surgical History Problems History of Complete colonoscopy ONSET DATE 18OCT2010 Current Meds Medication NameInstruction Amiodarone HCl - 200 MG Oral TabletTAKE 1 TABLET alternating with 1/2 tablet daily amLODIPine Besylate 2.5 MG Oral TabletTAKE 1 TABLET DAILY. Aspirin EC 81 MG Oral Tablet Delayed ReleaseTAKE 1 TABLET DAILY. Calcium Citrate + D3 200-250 MG-UNIT TABSTAKE 1 TABLET 3 times daily Keppra 500 MG Oral TabletTAKE 1 TABLET TWICE DAILY DIRECTED. Levothyroxine Sodium 75 MCG Oral TabletTAKE 1 TABLET DAILY. Lipitor 40 MG Oral TabletTAKE 1 TABLET AT BEDTIME. Lisinopril 10 MG Oral TabletTAKE 1 TABLET DAILY. PriLOSEC OTC 20 MG Oral Tablet Delayed ReleaseTAKE 1 TABLET DAILY. Prolia 60 MG/ML Subcutaneous Solution Prefilled Syringeinject every 6 months Vitamin D3 125 MCG (5000 UT) Oral TabletTake 1 tablet daily Zinc 50 MG Oral TabletTAKE 1 TABLET DAILY. Patient did not bring medication list or bottles. Updated verbally with patient Allergies Medication meloxicam Allergy; Diarrhea; Recorded By: Padmini Park; 10/06/2021 11:47:02 AM Penicillins Allergy; Edema; Flushing; Recorded By: Katie Plaza; 11/24/2021 10:39:10 AM Social History Problems Caffeine use (V49.89) (Z78.9) 1 CUP OF COFFEE DAILY, 1 CAN SODA DAILY Current every day smoker (305.1) (F17.200) 4-5 CIGARETTES DAILY No alcohol use No illicit drug use Review of Systems Constitutional: not feeling tired. Eyes: no eyesight problems. ENT: no hearing loss and no nosebleeds. Cardiovascular: no intermittent leg claudication and as noted in HPI. Respiratory: no chronic cough and no shortness of breath. Gastrointestinal: no change in bowel habits and no blood in stools. Genitourinary: no urinary frequency. Skin: no skin rashes. Neurological: no seizures and no frequent falls. Psychiatric: no depression and not suicidal. All other systems have been reviewed and are negative for complaint. Vitals Vital Signs Recorded: [id number] 02:01PM Heart Rate55, Apical Royjtijn539, LUE, Sitting [id number], LUE, Sitting Height or Weight NOT DonePatient Reason Not Done Tobacco Usea) Yes Patient encouraged to stop using tobacco productsYes PHQ-2 #1. Over the last 2 weeks have you felt down, depressed or hopeless? (If yes, answer PHQ-9 below)No PHQ-2 #2. Over the last 2 weeks have you felt little interest or pleasure in doing things? (If yes, answer PHQ-9 below)No Falls Screening (Age 18+)a) No falls within the last year EKG done in office today Physical Exam Constitutional: alert and in no acute distress. Eyes: no erythema, swelling or discharge from the eye . Neck: neck is supple, symmetric, trachea midline, no masses and no thyromegaly . Pulmonary: no increased work of breathing or signs of respiratory distress and lungs clear to auscul (more content not included)... Normal [facility] Creatinine and Glomerular fi ltration rate.predicted panel (S/P/Bld)Ordered By: Tin Curtis on 09-03-2022 Creatinine [Mass/Vol] 1.01 mg/dL 0.44-1.03 [facility] Estimated glomerular filtrat ion rate (GFR) non- AmericanOrdered By: Tin Curtis on 09-03-2022 GFR/1.73 sq M.predicted among non-blacks MDRD (S/P/Bld) [Vol rate/Area] 52 mL/Min [facility] No Panel InformationOrdered By: Tin Curtis on 09-03-2022 Estimated GFR () > 60 mL/Min [facility] Comment on above: GFR estimated refere nce range: According to KDOQI guidelines, <60 ml/min/1.73m2 is sufficient to diagnose a patient with chronic kidney disease. Pharmacy Creatinine Clearance (Chem N/A [facility] No Panel Informationon 09-03 18\S\18 Normal 10-42 [facility] y 250 DO Work Phone: 0.89\S\0.89 Normal 0.45-5.33 [facility] [employer] y 250 DO Work Phone: Comment on above: PERFORMED BY:[facility] [place], [place] [phone] MEDICAL DIRECTORSANTHOSH MOSQUEDA M.D. 13.4\S\13.4 Normal 6.0-15.0 [facility] y 250 DO Work Phone: [phone] 9.2\S\9.2 Normal 8.2-10.2 [facility] y 250 DO Work Phone: [phone] 28.7\S\28.7 Normal 22.0-30.0 [facility] 250 DO Work Phone: [phone] 104\S\104 Normal 95-114 [facility] y 250 DO Work Phone: [phone] 4.1\S\4.1 Normal 3.5-5.1 [facility] Shireen obrien 250 DO Work Phone: [phone] 142\S\142 Normal 136-146 [facility] Sh[facility]en obrien 250 DO Work Phone: > 60 Normal [facility] Shireen obrien 250 DO Work Phone: Comment on above: GFR estimated refere nce range: According to KDOQI guidelines, <60 ml/min/1.73m2 is sufficient to diagnose a patient with chronic kidney disease. 52\S\52 Normal [facility] y 250 DO Work Phone: [phone] 1.01\S\1.01 Normal 0.44-1.03 [facility] y 250 DO Work Phone: [phone] 19\S\19 Normal 9-23 [facility] y 250 DO Work Phone: [phone] 97\S\97 Normal 70-100 [facility] Sh[facility] y 250 DO Work Phone: Comment on above: Random Glucose Refer ence Range is dependent on time and content of last meal. Glucose of more than 200 mg/dL in a nonstressed, ambulatory subject supports the diagnosis of Diabetes Mellitus. ADA recommended reference range Radiologyon 09-03-2022 XR Chest 2 Views Normal [facility] [facility] DO Work Phone: Serum or plasma anion gap de terminationOrdered By: Tin Curtis on 09-03-2022 Anion gap [Moles/Vol] 13.4 mmol/L 6.0-15.0 [facility] Serum or plasma aspartate am inotransferase measurement (enzymatic activity/volume)Ordered By: Tin Curtis on 09-03-2022 AST [Catalytic activity/Vol] 18 U/L 10-42 [facility] Serum or plasma calcium rodriguez urement (mass/volume)Ordered By: Tin Curtis on 09-03-2022 Calcium [Mass/Vol] 9.2 mg/dL 8.2-10.2 [facility] Serum or plasma chloride monica surement (moles/volume)Ordered By: Tin Curtis on 09-03-2022 Chloride [Moles/Vol] 104 mmol/L 95-114 [facility] Serum or plasma glucose rodriguez urement (mass/volume)Ordered By: Tin Curtis on 09-03-2022 Glucose [Mass/Vol] 97 mg/dL 70-100 [facility] Comment on above: ADA recommended refe rence rangeRandom Glucose Reference Range is dependent on time and content of last meal. Glucose of more than 200 mg/dL in a nonstressed, ambulatory subject supports the diagnosis of Diabetes Mellitus. Serum or plasma potassium me asurement (moles/volume)Ordered By: Tin Curtis on 09-03-2022 Potassium [Moles/Vol] 4.1 mmol/L 3.5-5.1 [facility] Serum or plasma sodium measu rement (moles/volume)Ordered By: Tin Curtis on 09-03-2022 Sodium [Moles/Vol] 142 mmol/L 136-146 [facility] Serum or plasma total carbon dioxide measurement (moles/volume)Ordered By: Tin Curtis on 09-03-2022 CO2 [Moles/Vol] 28.7 mmol/L 22.0-30.0 [facility] Serum or plasma urea nitroge n measurement (mass/volume)Ordered By: Tin Curtis on 09-03-2022 Urea nitrogen [Mass/Vol] 19 mg/dL 07-10 [facility] TSH DL <= 0.005 mIU/L QnOrde red By: Tin Curtis on 09-03-2022 TSH Qn 0.89 m[IU]/L 0.45-5.33 [facility] Height or Weight NOT Doneon 05-20-2022 Adult depression screening assessment No [facility] DO Work Phone: Fall risk assessment a) No falls within the last year [facility] 250 DO Work Phone: Tobacco use status CPHS a) Yes [facility] 250 DO Work Phone: Height or Weight NOT Done Yes [facility] 250 DO Work Phone: Tobacco Screening.on 022 Fall risk assessment b) One or more fall s in the last year [facility] 250 DO Work Phone: Tobacco use status CPHS a) Yes [facility] 250 DO Work Phone: Tobacco Screening. Yes [facility] 250 DO Work Phone: Vital Signs Date Time Vital Sign Value Performing Clinician Facility 03-01-2024 16:13-0400 Diastolic blood pressure 88 mm[Hg] Tin Curtis MD Work Phone: [facility] 03-01-2024 16:13-0400 Heart rate 52 /min Tin Curtis MD Work Phone: [facility] 03-01-2024 16:13-0400 Systolic blood pressure 190 mm[Hg] Tin Curtis MD Work Phone: [facility] 06-04-2023 14:45-0400 Body height 165.1 cm Fernando B Bowie Work Phone: [facility] 250 DO Work Phone: 06-04-2023 14:45-0400 Body mass index (BMI) [Ratio] Medical Reason Not Done Fernando Cady Bowie Work Phone: [facility] 250 DO Work Phone: 06-04-2023 14:45-0400 Diastolic blood pressure 84 mm[Hg] Fernando Lazar Bowie Work Phone: [facility] 250 DO Work Phone: 06-04-2023 14:45-0400 Heart rate 52 /min Fernando Lazar Bowie Work Phone: [facility] 250 DO Work Phone: 06-04-2023 14:45-0400 Systolic blood pressure 130 mm[Hg] Fernando Lazar Bowie Work Phone: [facility] 250 DO Work Phone: 12-09-2022 14:01-0500 Body mass index (BMI) [Ratio] Patient Reason Not Done Tin Curtis MD Work Phone: [facility] 250 DO Work Phone: 12-09-2022 14:01-0500 Diastolic blood pressure 58 mm[Hg] Tin Curtis MD Work Phone: [facility] 250 DO Work Phone: 12-09-2022 14:01-0500 Heart rate 55 /min Tin Curtis MD Work Phone: [facility] 250 DO Work Phone: 12-09-2022 14:01-0500 Systolic blood pressure 114 mm[Hg] Tin Curtis MD Work Phone: [facility] 250 DO Work Phone: 05-20-2022 13:17-0400 Diastolic blood pressure 70 mm[Hg] 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 Work Phone: [facility] 250 DO Work Phone: 05-20-2022 13:17-0400 Systolic blood pressure 140 mm[Hg] 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 Work Phone: [facility] 250 DO Work Phone: 05-20-2022 12:53-0400 Body height 165.1 cm 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 Work Phone: [facility] 250 DO Work Phone: 05-20-2022 12:53-0400 Body mass index (BMI) [Ratio] Patient Reason Not Done 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 Work Phone: [facility] 250 DO Work Phone: 05-20-2022 12:53-0400 Diastolic blood pressure 80 mm[Hg] 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 Work Phone: [facility] 250 DO Work Phone: 05-20-2022 12:53-0400 Heart rate 59 /min 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 Work Phone: [facility] 250 DO Work Phone: 05-20-2022 12:53-0400 Systolic blood pressure 152 mm[Hg] 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 Work Phone: [facility] 250 DO Work Phone: 11-06-2021 15:15-0500 Body height 165.1 cm Ivan Kern DO Work Phone: [facility] 250 DO Work Phone: 11-06-2021 15:15-0500 Diastolic blood pressure 70 mm[Hg] Ivan Kern DO Work Phone: [facility] 250 DO Work Phone: 11-06-2021 15:15-0500 Heart rate 54 /min Ivan Kern DO Work Phone: [facility] 250 DO Work Phone: 11-06-2021 15:15-0500 Systolic blood pressure 134 mm[Hg] Ivan Kern DO Work Phone: [facility] 250 DO Work Phone: Encounters Encounter Date Encounter Type Care Provider Facility Start: 05-01-2024 End: 05-01-2024 ambulatory FERNANDO BOWIE Not Available Start: 03-30-2024 End: 03-30-2024 ambulatory NEHA BELTRE Not Available Start: 03-01-2024 End: 03-01-2024 ambulatory TIN CURTIS [facility] Ambulatory Start: 03-01-2024 End: 03-01-2024 Office outpatient visit 25 minutes Tin Curtis MD Work Phone: [facility] Comment on above: Paroxysmal atrial fi brillation (Multi); Hyperlipidemia, unspecified hyperlipidemia type; Essential hypertension; Cerebrovascular accident (CVA), unspecified mechanism (Multi); High risk medication use; Current every day smoker Start: 02-01-2024 End: 02-01-2024 ambulatory MATEO DSOUZA Not Available Start: 12-27-2023 End: 12-27-2023 ambulatory FERNANDO BOWIE Not Available Start: 12-22-2023 End: 12-22-2023 ambulatory NEHA BELTRE Not Available Start: 11-08-2023 End: 11-08-2023 ambulatory Tin Curtis Facility:[facility] Start: 11-08-2023 Non-patient / Non-visit [facility] Work Phone: Start: 09-27-2023 End: 09-27-2023 ambulatory FERNANDO BOWIE Not Available Start: 09-16-2023 End: 09-16-2023 ambulatory NEHA BELTRE Not Available Start: 06-04-2023 Office outpatient vi sit 25 minutes Fernando Bowie Work Phone: [facility] 250 DO Work Phone: Start: 06-04-[address] Fernando Bowie II Facility: Start: 03-26-2023 End: 03-26-2023 ambulatory Tin Curtis Facility:[facility] Start: 02-01-2023 Rx Renewal Tin borges MD Work Phone: [facility] 250 DO Work Phone: Start: 01-13-2023 Patient encounter procedure Tin Curtis MD Work Phone: [facility] 250 DO Work Phone: Start: 12-28-2022 End: 12-28-2022 ambulatory VALERIE BOONE . Facility: Start: 12-09-2022 Office outpatient vi sit 25 minutes Tin Curtis MD Work Phone: [facility] 250 DO Work Phone: Start: 12-09-[address] 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 Work Phone: [facility] 250 DO Work Phone: Procedures Date Procedure Procedure Detail Performing Clinician Start: 03-01-2024 XR CHEST 2 VIEWS KATHRYN CURTIS Start: 03-01-2024 ECG 12-LEAD TIN GANNON Start: 03-01-2024 Ecg routine ecg w/le ast 12 lds w/i&r Tin Curtis MD Work Phone: Start: 09-03-2022 Plain chest X-ray II Da jose Bowie Work Phone: Total colonoscopy Ivan Fernández charlee DO Work Phone: Comment on above: ONSET DATE [id number] ; Plan of Treatment Date Care Activity Detail Author Start: 11-21-2024 End: 11-21-2024 Patient encounter procedure 11/21/2024 1:00 PM EST Office Visit [facility] [address] [place] [address] Candie Neal, [employer]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 [address] [place] [address] [facility] Start: 09-01-2024 End: 03-01-2025 Aspartate aminotransferase [Enzymatic activity/volume] in Serum or Plasma by With P-5'-P Aspartate Aminotransferase Lab Routine Paroxysmal atrial fibrillation (Multi) High risk medication use Expected: 09/01/2024 (Approximate), Expires: 03/01/2025 [facility] Service Area Work Phone: Comment on above: Expected: 09/01/2024 (Approximate), Expi res: 03/01/2025 Start: 09-01-2024 End: 03-01-2025 Basic metabolic 2000 panel - Serum or Plasma Basic Metabolic Panel Lab Routine Paroxysmal atrial fibrillation (Multi) High risk medication use Expected: 09/01/2024 (Approximate), Expires: 03/01/2025 [facility] Work Phone: Comment on above: Expected: 09/01/2024 (Approximate), Expi res: 03/01/2025 Start: 09-01-2024 End: 03-01-2025 Thyrotropin [Units/volume] in Serum or Plasma Thyroid Stimulating Hormone Lab Routine Paroxysmal atrial fibrillation (Multi) High risk medication use Expected: 09/01/2024 (Approximate), Expires: 03/01/2025 [facility] Work Phone: Comment on above: Expected: 09/01/2024 (Approximate), Expi res: 03/01/2025 Start: 09-01-2024 Subsequent hospital visit by physician 09/01/2024 Hospital Encounter [facility] [address] [place] [address] Paroxysmal atrial fibrillation (Multi); High risk medication use [facility] Comment on above: Paroxysmal atrial fibrillation (Multi); High risk medication use Start: 03-01-2024 FUV, Provider: Tin Curtis, Status: Pen, Time: 3:40 PM FUV, Provider: Tin Curtis, Status: Pen, Time: 3:40 PM -[facility] 250 DO Work Phone: Start: 03-01-2024 End: 03-01-2025 Complete Pulmonary Function Test (Spirometry/DLCO/Lung Volumes) Complete Pulmonary Function Test (Spirometry/DLCO/Lung Volumes) PFT Routine Paroxysmal atrial fibrillation (Multi) High risk medication use Expected: 03/01/2024 (Approximate), Expires: 03/01/2025 [facility] Work Phone: Comment on above: Expected: 03/01/2024 (Approximate), Expi res: 03/01/2025 Start: 06-18-2023 COVID-19 Vaccine () COVID-19 Vaccine () [facility] Start: 06-04-2023 FUV, Provider: Tin Curtis, Status: Pen, Time: 2:30 PM FUV, Provider: Tin Curtis, Status: Pen, Time: 2:30 PM -[facility] 250 DO Work Phone: Start: 04-24-2023 Screening for osteoporosis Bone Density Scan [facility] Start: 12-09-2022 FUV, Provider: Tin Curtis, Status: Pen, Time: 2:20 PM FUV, Provider: Tin Curtis, Status: Pen, Time: 2:20 PM [facility] 250 DO Work Phone: Start: 04-23-2022 FUV, Provider: Ivan Kern, Status: Pen, Time: 2:30 PM FUV, Provider: Ivan Kern, Status: Pen, Time: 2:30 PM -[facility] 250 DO Work Phone: Start: 11-06-2021 FUV, Provider: Ivan Kern, Status: Pen, Time: 3:15 PM FUV, Provider: Ivan Kern, Status: Pen, Time: 3:15 PM -[facility] 600 DO Work Phone: Start: 07-08-2014 Zoster Vaccines (2 of 3) Zoster Vaccines (2 of 3) [facility] Start: 1998 RSV patients and/or patients aged 60+ years (1 - 1-dose 60+ series) RSV patients and/or patients aged 60+ years (1 - 1-dose 60+ series) [facility] Start: 1960 DTaP/Tdap/Td Vaccines (1 - Tdap) DTaP/Tdap/Td Vaccines (1 - Tdap) [facility] Start: 1956 Diabetes mellitus screening Diabetes Screening [facility] Start: 1938 Lipid panel Lipid Panel [facility] Start: 1938 Medicare Annual Wellness Visit Medicare Annual Wellness Visit (AWV) [facility] Start: 1938 Thyroid stimulating hormone measurement TSH Level [facility] Immunizations Immunization Date Immunization Notes Care Provider Meka barney 08-20-2022 influenza, high dose seasonal, preservative-free Tin Curtis MD Work Phone: [facility] [place] 250 DO Work Phone: 08-18-2021 influenza, high dose seasonal, preservative-free Ivan [facility]ern DO [facility] Work Phone: 11-28-2020 Pfizer-BioNTech COVI D-19 Vacc 30 MCG/0.3ML Intramuscular Suspension Ivan Kern DO Work Phone: [facility] [employer] 600 DO Work Phone: 11-08-2020 Pfizer-BioNTech COVI D-19 Vacc 30 MCG/0.3ML Intramuscular Suspension Ivan Kern DO [facility] DO Work Phone: 09-13-2020 Fluad Quadrivalent 0 .5 ML Intramuscular Prefilled Syringe Ivan Kern DO [facility] DO Work Phone: 08-18-2020 influenza, high dose seasonal, preservative-free Ivan Kern DO [facility] DO Work Phone: 09-01-2019 influenza, high dose seasonal, preservative-free [facility] DO [facility] Work Phone: 09-01-2019 pneumococcal polysaccharide vaccine, 23 valent Ivan Kren DO Work Phone: [facility] 250 DO Work Phone: 08-18-2019 influenza virus vacc ine, unspecified formulation Ivan Kern DO Work Phone: [facility] 600 DO Work Phone: 08-18-2019 pneumococcal polysaccharide vaccine, 23 valent Ivan Kern DO Work Phone: [facility] 600 DO Work Phone: 08-04-2018 influenza, high dose seasonal, preservative-free Ivan Kern DO Work Phone: [facility] 250 DO Work Phone: 07-18-2018 influenza virus vacc ine, unspecified formulation Ivan Kern DO Work Phone: [facility] 600 DO Work Phone: 09-20-2017 seasonal influenza, intradermal, preservative free Ivan Kern DO Work Phone: [facility] 250 DO Work Phone: 08-18-2017 influenza virus vacc ine, unspecified formulation Ivan Kern DO Work Phone: [facility] 600 DO Work Phone: 08-18-2016 influenza virus vacc ine, unspecified formulation Ivan Lyster DO [facility] DO Work Phone: 04-03-2016 pneumococcal conjuga te vaccine, 13 valent Ivan Kern DO Work Phone: [facility] 250 DO Work Phone: 02-16-2016 pneumococcal conjuga te vaccine, 13 valent Ivan Kern DO Work Phone: [facility] 600 DO Work Phone: 07-18-2015 influenza virus vacc ine, unspecified formulation Ivan Kern DO Work Phone: [facility] 600 DO Work Phone: 08-03-2012 influenza virus vacc ine, whole virus Ivan Kern DO Work Phone: [facility] 250 DO Work Phone: 07-30-2010 influenza virus vacc ine, whole virus Ivan Kern DO Work Phone: [facility] 250 DO Work Phone: 10-18-2009 pneumococcal polysaccharide vaccine, 23 valent Ivan Kern DO Work Phone: [facility] 600 DO Work Phone: Payers Date Payer Category Payer Self-pay [id number] 2003 Medicare MEDICARE MEDICAR E PART A AND B [id number] 2003-Present [address] [place] [address] [id number] 1959 Medicare [id number] 1938 Unknown [id number] 1938 Unknown [id number] 1938 Unknown [id number] 1938 Unknown [id number] 1938 Unknown [id number] 1938 Unknown [id number] 1938 Unknown [id number] 1938 Unknown [id number] 1938 Unknown [id number] 1938 Unknown [id number] 1938 Unknown [id number] 1938 Unknown [id number] 1938 Unknown [id number] Unknown Unknown [id number] Unknown [id number] Unknown [id number] Social History Date Type Detail Facility Start: 03-01-2024 Caffeine use Caffeine use -[facility] Phone: Comment on above: 1 CUP OF COFFEE FERNANDA Y, 1 CAN SODA DAILY; 4-5 CIGARETTES DAILY ; 2-3 CIGARETTES DAILY ; Start: 12-13-2019 Tobacco smoking stat us NHIS Smoker (finding) [facility] Start: 1940 Sex Assigned At Female F [facility] Start: 03-01-2024 [facility] History of tobacco use Cigarette Smoker [facility] Work Phone: Start: 03-01-2024 Tobacco use and exposure Smokeless tobacco non-user [facility] Work Phone: Start: 03-01-2024 Alcoholic beverage intake Lifetime non-drinker (finding) [facility] Work Phone: Start: 03-01-2024 Tobacco use panel [facility] Work Phone: Start: 1940 Sex assigned at Not on file [facility] Work Phone: Start: 02-20-2024 End: 03-01-2024 Exposure to SARS-CoV-2 (event) Not sure [facility] History of Present illness Narrative 03-01-2024 Tin Curtis MD - 03/01/2024 3:40 PM EDT Note Date & Type Note Facility 03-01-2024 History of Present illness Narrative Subjective Mandeep Alvarado is a 83 y.o. female Chief Complaint Follow-up HPI Review of Systems All other systems reviewed and are negative. Patient returns in follow-up of problems as noted. She is done well. Sinus rhythm is maintained and she denies any arrhythmia symptomatology. Previous amiodarone testing is reviewed and felt to be adequate and appropriate. Blood pressure is high today but normally better controlled. She states other providers have told her that her blood pressure has been good. Because of this I do not believe this isolated elevation requires treatment. From a cardiac standpoint she is doing well. Her arrhythmia is prevented and she denies any angina or dyspnea. The reason and the rationale for maintenance of sinus rhythm was discussed in great detail. The patient has a history of stroke. She is not able to take anticoagulant therapy because of previous intracranial hemorrhage. Hence we feel maintenance of sinus rhythm and amiodarone to be essential. We reviewed her management of lipids that appears to be acceptable. It appears she still smokes and she was counseled in this regard. Vitals: 03/01/24 1613 BP: (!) 190/88 BP Location: Right arm Patient Position: Sitting Pulse: 52 EKG done in office today Objective Physical Exam Constitutional: Appearance: Normal appearance. HENT: Nose: Nose normal. Neck: Vascular: No carotid bruit. Cardiovascular: Rate and Rhythm: Normal rate. Pulses: Normal pulses. Heart sounds: Normal heart sounds. Pulmonary: Effort: Pulmonary effort is normal. Abdominal: General: Bowel sounds are normal. Palpations: Abdomen is soft. Musculoskeletal: General: Normal range of motion. Cervical back: Normal range of motion. Right lower leg: No edema. Left lower leg: No edema. Skin: General: Skin is warm and dry. Neurological: General: No focal deficit present. Mental Status: She is alert. Psychiatric: Mood and Affect: Mood normal. Behavior: Behavior normal. Thought Content: Thought content normal. Judgment: Judgment normal. Allergies Meloxicam and Penicillins Current Medications Current Outpatient Medications: amiodarone (Pacerone) 200 mg tablet, Take 1 tablet (200 mg) by mouth once daily. (Patient taking differently: Take 1 tablet (200 mg) by mouth once daily. Take one tablet alternating every other day with 1/2 tablet), Disp: 90 tablet, Rfl: 3 amLODIPine (Norvasc) 2.5 mg tablet, Take 1 tablet (2.5 mg) by mouth once daily., Disp: , Rfl: aspirin 81 mg EC tablet, Take 1 tablet (81 mg) by mouth once daily., Disp: , Rfl: atorvastatin (Lipitor) 40 mg tablet, Take 1 tablet (40 mg) by mouth once daily at bedtime., Disp: , Rfl: calcium citrate-vitamin D3 200 mg-6.25 mcg (250 unit) tablet, Take 1 tablet by mouth 3 times a day., Disp: , Rfl: levETIRAcetam (Keppra) 500 mg tablet, Take 1 tablet (500 mg) by mouth 2 times a day., Disp: , Rfl: levothyroxine (Synthroid, Levoxyl) 75 mcg tablet, Take 1 tablet (75 mcg) by mouth once daily in the morning. Take before meals. Take on an empty stomach., Disp: , Rfl: lisinopril 10 mg tablet, Take 1 tablet (10 mg) by mouth once daily., Disp: , Rfl: omeprazole OTC (PriLOSEC OTC) 20 mg EC tablet, Take 1 tablet (20 mg) by mouth once daily., Disp: , Rfl: Assessment/Plan 1. Paroxysmal atrial fibrillation (Multi) No recurrence on amiodarone. Continue same. Previous amiodarone testing reviewed. 2. Hyperlipidemia, unspecified hyperlipidemia type Management reviewed and is appropriate 3. Essential hypertension Blood pressure slightly elevated but I feel adjustments not necessary 4. Cerebrovascular accident (CVA), unspecified mechanism (Multi) Remote with associated intracranial hemorrhage. Hence she is very reluctant to take anticoagulant therapy 5. High risk medication use Surveillance of high risk medication demonstrates no manifestations of side effect 6. Current every day smoker Patient counseled in this regard Scribe Attestation By signing my name below, I, Micaela Kim LPN attest that this documentation has been prepared under the direction and in the presence of Tin Curtis MD. Provider Attestation - Scribe documentation All medical record entries made by the Scribe were at my direction and personally dictated by me. I have reviewed the chart and agree that the record accurately reflects my personal performance of the history, physical exam, discussion and plan. documented in this encounter [facility] Work Phone: Instructions 03-01-2024 Patient Instructions Note Date & Type Note Facility 03-01-2024 Instructions Terell Hines MA - 03/01/2024 3:40 PM EDT Please bring all medicines, vitamins, and herbal supplements with you when you come to the office. Prescriptions will not be filled unless you are compliant with your follow up appointments or have a follow up appointment scheduled as per instruction of your physician. Refills should be requested at the time of your visit. documented in this encounter [facility] Work Phone: Clinical Note 08-07-2022 Note Date & Type Note Facility 08-07-2022 Note PROCEDURE: XR KNEE L T 4V or > COMPARISON: None. HISTORY: Pain FINDINGS: BONES:No acute fracture or dislocation. Moderate tricompartmental osteoarthropathy with joint space narrowing and marginal osteophyte relation. Extensive chondrocalcinosis SOFT TISSUES:Negative. No visible soft tissue swelling. EFFUSION:None visible. OTHER: Vascular calcifications IMPRESSION: Moderate osteoarthritis Electronically authenticated by: HEATH CHANG Date: 2022-08-07 11:38 [facility] Evaluation note Note Date & Type Note Facility Evaluation note No assessment information availa [facility] Work Phone: Evaluation note Note Date & Type Note Facility Evaluation note Diagnosis Paroxysmal atrial fibrillation (Multi) Atrial fibrillation Hyperlipidemia, unspecified hyperlipidemia type Essential hypertension Unspecified essential hypertension Cerebrovascular accident (CVA), unspecified mechanism (Multi) High risk medication use Current every day smoker Paroxysmal atrial fibrillation (Multi) Atrial fibrillation High risk medication use documented in this encounter [facility] Work Phone: History of Present illness Narrative Note Date & Type Note Facility History of Present illness Narrative Mrs. Alvarado is a 80-year-old female who is seen back today for follow-up on her history of atrial fibrillation. Her atrial fibrillation is treated with amiodarone. She does not have any known history of coronary disease but does have risk factors as she is a chronic cigarette smoker and is still smoking. She has had negative stress test in the past. She has no anginal symptoms and has no complaints of any chest pain today. EKG shows sinus rhythm and she is on chronic amiodarone. She has a history of previous stroke and then she had an intracerebral bleed that was felt to be related to her Coumadin and therefore she is not on anticoagulation other than low-dose aspirin. She has not had any recent recurrence of atrial fibrillation. She has no specific cardiac complaints today. Seems to be stable.Physical exam:Neck: No carotid bruits are heardLungs: Few rhonchiHeart: Regular rate and rhythm without extra sounds or murmursExtremities: No significant edemaRecommendation is continuation of current medications. No changes were made to her medications. She is encouraged to continue to work on stopping smoking. She is to return in 6 months. [facility] 250 DO Work Phone: History of Present illness Narrative Note Date & Type Note Facility History of Present illness Narrative The patient presents with paroxysmal atrial fibrillation. The treatment strategy for this patient is rhythm control. She states her atrial fibrillation has been well controlled since the last visit.Symptoms: denies palpitations, denies chest pain, denies exercise intolerance, denies dyspnea on exertion and denies dizziness. Associated symptoms include no syncope.Risks: no increased risk for falling.Medications: the patient is adherent with her medication regimen. She denies medication side effects. [facility] Work Phone: History of Present illness Narrative Note Date & Type Note Facility History of Present illness Narrative Patient returns in follow-up of problems as noted. In the interim she is done relatively well. She denies any symptoms of paroxysmal atrial fibrillation and it appears that amiodarone has been effective at maintaining sinus rhythm and mitigating most of her stroke risk. Amiodarone surveillance laboratories, chest x-ray, and pulmonary function studies are reviewed with her and the results are satisfactory no adjustments in therapy appear necessaryIn regards to other cardiac risk factors are hypertension and hyperlipidemia appear to be well controlled. In the past she had a stroke with post infarct bleed which was complicated by antithrombotic therapy. Because of this she is extremely adverse to anticoagulant therapy and I concur with her feelings in this regard. She is willing to accept any residual risk associated with her potential for paroxysmal atrial fibrillation.Continues to smoke, and the merits of diet exercise weight loss and in particular smoking cessation were emphasized. [facility] Work Phone: History of Present illness Narrative Note Date & Type Note Facility History of Present illness Narrative Patient returns for follow-up of problems as noted. In the interim she is done well. Her cardiac risk factors which include hypertension and hyperlipidemia are well controlled. She has had no paroxysms of atrial fibrillation on amiodarone and this high risk medication is well-tolerated with recent testing demonstrating no evidence of endorgan effect caused by the agents. She reminds me that she had a stroke followed by intracranial hemorrhage and hence she is very reluctant to take anticoagulants and I concur. Overall she is doing well but we know she continues to smoke and the importance of smoking cessation was emphasized. [facility] [employer] DO Work Phone: Chief Complaint Order sent to [facility] for testing due in JENNY is being seen for a 6 month follow-up of.* Here for follow-up and doing fine * SANDRA ALVARADO is being seen for a 6 month follow-up of atrial fibrillation. * Patient is ambulatory with steady gait. * Last evaluated in clinic by Dr. Kern Oct 2021. * A chronological chart review from last in clinic evaluation was completed. * In w/c today due to knee pain; uses walker at home . * Compared to last cardiovascular evaluation, patient reports 'doing the same' * Patient denies any hospitalizations or significant changes to interval medical history since last office follow-up. * Patient attends to own ADLs and functional ADLs. Resides with son. * Patient daily activity includes: fairly sedentary due to knee pain * Patient ambulate in from parking lot without concerns. * Patient denies change to exercise tolerance or functional capacity since last evaluation. Amiodarone Order sent to [facility] for testing due in JENNY is being seen for a 6 month follow-up of.Amiodarone Order sent to [facility] for testing due in JENNY is being seen for a 6 month follow-up of.MANDEEP ALVARADO is being seen for a 6 month follow-up of. Family History No Family History Records FoundUnknown Family Member Name Dates Details Bleeding ulcer: Father Status:Active Family history of acute myoc ardial infarction: Brother(V17.3, Z82.49) Status:Active FH: diabetes mellitus: Mothe r(V18.0, Z83.3) Status:Active Unknown Family Member Name Dates Details Bleeding ulcer: Father Status:Active Family history of acute myoc ardial infarction: Brother(V17.3, Z82.49) Status:Active FH: diabetes mellitus: Mothe r(V18.0, Z83.3) Status:Active Unknown Family Member Name Dates Details Bleeding ulcer: Father Status:Active Family history of acute myoc ardial infarction: Brother(V17.3, Z82.49) Status:Active FH: diabetes mellitus: Mothe r(V18.0, Z83.3) Status:Active Unknown Family Member Name Dates Details Bleeding ulcer: Father Status:Active Family history of acute myoc ardial infarction: Brother(V17.3, Z82.49) Status:Active FH: diabetes mellitus: Mothe r(V18.0, Z83.3) Status:Active Unknown Family Member Name Dates Details FH: diabetes mellitus: Mothe r(V18.0, Z83.3) Status:Active Family history of acute myoc ardial infarction: Brother(V17.3, Z82.49) Status:Active Bleeding ulcer: Father Status:Active Unknown Family Member Name Dates Details Bleeding ulcer: Father Status:Active Family history of acute myoc ardial infarction: Brother(V17.3, Z82.49) Status:Active FH: diabetes mellitus: Mothe r(V18.0, Z83.3) Status:Active Relationship Condition Age at Onset Recorded Date/T truman brother Myocardial infarction Unknown Unknown Family Member Name Dates Details Family history of malignant neoplasm: Sister(V16.9, Z80.9) Status:Active FH: diabetes mellitus: Mothe r(V18.0, Z83.3) Status:Active Family history of acute myoc ardial infarction: Brother(V17.3, Z82.49) Status:Active Bleeding ulcer: Father Status:Active Unknown Family Member Name Dates Details Bleeding ulcer: Father Status:Active Family history of acute myoc ardial infarction: Brother(V17.3, Z82.49) Status:Active FH: diabetes mellitus: Mothe r(V18.0, Z83.3) Status:Active Family history of malignant neoplasm: Sister(V16.9, Z80.9) Status:Active Unknown Family Member Name Dates Details Bleeding ulcer: Father Status:Active Family history of acute myoc ardial infarction: Brother(V17.3, Z82.49) Status:Active FH: diabetes mellitus: Mothe r(V18.0, Z83.3) Status:Active Family history of malignant neoplasm: Sister(V16.9, Z80.9) Status:Active Unknown Family Member Name Dates Details Bleeding ulcer: Father Status:Active Family history of acute myoc ardial infarction: Brother(V17.3, Z82.49) Status:Active FH: diabetes mellitus: Mothe r(V18.0, Z83.3) Status:Active Family history of malignant neoplasm: Sister(V16.9, Z80.9) Status:Active Chief Complaint and Reason for Visit Chief Complaint z79.899 i48.0 Chief Complaint z79.899 i48.0 Advance Directives No Advanced Directives Records Found Advance Directive Response Recorded Date/ Time Advance Directives No August 11, 2017 8:47pm Summary Purpose Reason for Referral Specialty Diagnoses / Procedures Referred By Contac t Referred To Contact Diagnoses Paroxysmal atrial fibrillation (Multi) High risk medication use Procedures Complete Pulmonary Function Test (Spirometry/DLCO/Lung Volumes) Tin Curtis MD [address] [place] [address] [address], [address] [address] Referral ID Status Reason Start Date Expiration Date V isits Requested Visits Authorized [id number] Pending Review 03/01/2024 03/01/2025 1 1 Specialty Diagnoses / Procedures Referred By Contac t Referred To Contact Radiology Diagnoses Paroxysmal atrial fibrillation (Multi) High risk medication use Procedures XR chest 2 views Tin Curtis MD [address] [place] [address] 2, [address] [address] Referral ID Status Reason Start Date Expiration Date Visits Requested Visits Authorized [id number] Pending Review Perform Procedure 03/01/2024 03/01/2025 1 1 Specialty Diagnoses / Procedures Referred By Contac t Referred To Contact Diagnoses Paroxysmal atrial fibrillation (Multi) High risk medication use Procedures ECG 12 Lead Tin Curtis MD [address] [place] [address] [address], [address] [address] Referral ID Status Reason Start Date Expiration Date V isits Requested Visits Authorized [id number] Authorized 03/01/2024 03/01/2025 1 1 Specialty Diagnoses / Procedures Referred By Contac t Referred To Contact Cardiology Diagnoses Paroxysmal atrial fibrillation (Multi) Procedures Follow Up In Cardiology Tin Curtis MD [address] [place] [address] [address], [address] [address] Referral ID Status Reason Start Date Expiration Date V isits Requested Visits Authorized [id number] Authorized 03/01/2024 03/01/2025 1 1 Additional Source Comments Care Teams (unrecognized sec tion and content) Team Status: Inactive Member Role Status Dates Fernando Bowie II MD Primary Care Provider Active Tin Curtis MD Attending Provider Active Team Status: Active Member Role Status Dates Fernando Bowie II MD Primary Care Provider Active Team Status: Active Member Role Status Dates Fernando Bowie II MD Primary Care Provider Active Start: November 08, 2023 Tin Curtis MD Other Provider Active Start: November 08, 2023 Connor Nelson MD Attending Provider Active Start: November 08, 2023 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 DATE CREATED AUTHOR AUTHOR'S ORGANIZ ATION 06/05/2023 [employer] DATE CREATED AUTHOR AUTHOR'S ORGANIZ ATION 11/14/2023 [facility] DATE CREATED AUTHOR AUTHOR'S ORGANIZ ATION 03/04/2024 [facility] DATE CREATED AUTHOR AUTHOR'S ORGANIZ ATION 03/04/2024 [facility] DATE CREATED AUTHOR AUTHOR'S ORGANIZ ATION 05/05/2024 [facility] EPIC Reason for Visit (unrecogniz ed section and content) Reason Comments Follow-up 9 month Specialty Diagnoses / Procedures Referred By Contac t Referred To Contact Diagnoses Paroxysmal atrial fibrillation (Multi) High risk medication use Procedures ECG 12 Lead Tin Curtis MD [address] [facility] [address], [place] [address] [place] [address] Referral ID Status Reason Start Date Expiration Date V isits Requested Visits Authorized [id number] Authorized 03/01/2024 03/01/2025 1 1 FOR RECORDS PERTAINING TO PATIENTS WHO ARE OR HAVE BEEN ENROLLED IN A CHEMICAL DEPENDENCY/SUBSTANCEABUSE PROGRAM, SOME INFORMATION MAY BE OMITTED. This clinical summary was aggregated from multiple sources. Caution should be exercised in using it in the provision of clinical care. This summary normalizes information from multiple sources, and as a consequence, information in this document may materially change the coding, format and clinical context of patient data. In addition, data may be omitted in some cases. CLINICAL DECISIONS SHOULD BE BASED ON THE PRIMARY CLINICAL RECORDS. [facility] [employer] ([employer]) [facility]. provides no warranty or guarantee of the accuracy or completeness of information in this document.
--- NOTE | 2024-05-28 17:45 | ED.FALL1 ---
HPI HPI - Fall General Chief Complaint: Fall Stated Complaint: Fall Time Seen by Provider: 05/28/24 17:15 Source: patient Mode of arrival: ambulance History of Present Illness HPI Narrative: 83-year-old female presents for right hip pain. She fell and hit her right hip. She sustained skin tears on her right forearm. She did not hit her head and has not walked since this happened. No other injury was sustained and this happened just before coming into the emergency department and she was brought here by paramedics. Related Data Home Medications ?Medication ?Instructions ?Recorded ?Confirmed amiodarone 200 mg tablet 100 mg PO .every other day 07/22/23 09/18/23 atorvastatin 40 mg tablet 40 mg PO .hs 07/22/23 09/18/23 calcium carbonate-vitamin D3 1 tab .Route BID 07/22/23 09/18/23 cholecalciferol (vitamin D3) 62.5 mcg PO 07/22/23 mcg (2,500 unit) capsule levetiracetam 500 mg tablet 500 mg PO Q12H 07/22/23 09/18/23 omeprazole 20 mg capsule,delayed 20 mg PO BID 07/22/23 09/18/23 release aspirin 81 mg tablet,delayed 81 mg PO DAILY 09/18/23 09/18/23 release (Adult Low Dose Aspirin) levetiracetam 250 mg tablet 500 mg PO Q12H 09/18/23 09/18/23 levothyroxine 75 mcg tablet 75 mcg PO Q24H 09/18/23 09/18/23 lisinopril 10 mg tablet 10 mg PO Q24H 09/18/23 09/18/23 Allergies Allergy/AdvReac Type Severity Reaction Status Date / Time penicillin G AdvReac Intermediate Verified 09/18/23 09:29 Opioid HPI Opioid Management Most Recent Pain and Opioid Data: Last ED Pain Assessment 05/28/24 17:24 Review of Systems ROS Narrative A ten point review of systems is negative except as noted above. PFSH PFSH Social History Smoking status: Current every day smoker Exam Narrative Exam Narrative: Nurses note and vital signs reviewed and patient is not hypoxic. General: The patient appears in no apparent distress. Skin: Warm, dry, no pallor noted. There is no rash noted. Head: Normocephalic, atraumatic Eye: Normal conjunctiva, no drainage Ears, Nose, Mouth, and Throat: oral mucosa is moist. Nares patent. Cardiovascular: Regular Rate and Rhythm Respiratory: Patient is in no distress, no accessory muscle use, lungs are clear to auscultation, no wheezing, rales or rhonchi Back: non-tender GI: Soft and nontender Musculoskeletal: Skin tears present on the right forearm. Elbow and wrist have full range of motion. She has her right hip and her right knee flexed. She is able to extend the knee and the hip. No tenderness in the knee or ankle. She seems to have some tenderness but no deformity in the right hip and her leg does not seem to be shortened. Neurological: Awake and alert Psychiatric: Cooperative Constitutional Vital Signs, click to edit/add: Last Vital Signs Temp 97.5 F L 05/28/24 17:14 Pulse 55 L 05/28/24 18:42 Resp 16 05/28/24 18:42 BP 132/82 05/28/24 18:00 Pulse Ox 96 05/28/24 18:42 O2 Del Method Room Air 05/28/24 17:14 Course Vital Signs Vital signs: Vital Signs Temperature 97.5 F L 05/28/24 17:14 Pulse Rate 65 05/28/24 17:14 Respiratory Rate 18 05/28/24 17:14 Blood Pressure 150/87 H 05/28/24 17:14 Pulse Oximetry 98 05/28/24 17:14 Oxygen Delivery Method Room Air 05/28/24 17:14 Temperature 97.5 F L 05/28/24 17:14 Pulse Rate 55 L 05/28/24 18:42 Respiratory Rate 16 05/28/24 18:42 Blood Pressure 132/82 05/28/24 18:00 Pulse Oximetry 96 05/28/24 18:42 Oxygen Delivery Method Room Air 05/28/24 17:14 MDM - Fall MDM Narrative Medical decision making narrative: CT scan of the hip is pending and the patient is signed out to Dr. Lee at change of shift. Differential Diagnosis Differential diagnosis: Likely other (Hip contusion, hip fracture) Imaging Data Right hip x-ray: My impression: No acute findings Discharge Plan Discharge Patient Disposition: Still a Patient
--- NOTE | 2024-05-28 17:48 | CT_ITS ---
[address] [address] Patient Name: SHANNON ALVARADO MRN: [id number] date: 1940 Sex: F Assigned Patient Location: ER Current Patient Location: Accession/Order Number: [id number] Exam Date: 05/28/2024 18:05 Report Date: 05/28/2024 20:21 At the request of: SOLITARIO JO Procedure: CT hip RT wo con EXAM: CT hip RT wo con COMPARISON: 12/04/2019. CLINICAL INDICATION: Pain, fell TECHNIQUE: Multiplanar CT images right hip without contrast. Dose reduction techniques were achieved by using automated exposure control and/or adjustment of mA and/or kV according to patient size and/or use of iterative reconstruction technique. FINDINGS: No CT evidence of acute osseous abnormality of the right hip. Osteopenia. Advanced osteoarthritis right hip. 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 Enthesopathic change at the right ischial tuberosity and right greater trochanter. No significant right hip soft tissue hematoma. Mild lateral right hip subcutaneous edema. No acute intrapelvic abnormality. Fibroid uterus. Colonic diverticulosis. CT/CT hip RT wo con IMPRESSION: No CT evidence of acute osseous abnormality of the right hip. Osteopenia. Advanced osteoarthritis of the right hip. Fibroid uterus. Colonic diverticulosis. Electronically authenticated by: TUNDE BROWN Date: 05/28/2024 20:21
[2024-05-28] MEDS: ADACEL DIPH,PERTUSS(ACELL),TET VAC/PF 0.5 ML ADULT SYRINGE IM (18:36)
== END 2024-05-28 21:03 | disposition home or self-care (01) ==
PROVIDERS: Emergency Provider Internal Medicine; PCP Internal Medicine
DX: S70.01XA Contusion of right hip, initial encounter (principal); W19.XXXA Unspecified fall, initial encounter; F17.210 Nicotine dependence, cigarettes, uncomplicated; Z23 Encounter for immunization
CPT/HCPCS: 73502; 73700; 90471; 90715; 99284

== ENCOUNTER 2024-09-25 14:15 | Emergency (ER) | payer MEDICARE, OTHER, SELFPAY ==
[2024-09-25] VITALS (11 sets, daily range): BP systolic 119–218; BP diastolic 85–88; PULSE 55–71; TEMP 36.8; O2SAT 95–99; BMI 30.2
--- NOTE | 2024-09-25 14:37 | XR_ITS ---
The [address] [address] Patient Name: SHANNON ALVARADO MRN: [id number] date: 1940 Sex: F Assigned Patient Location: ER Current Patient Location: ER Accession/Order Number: [id number] Exam Date: 09/25/2024 14:39 Report Date: 09/25/2024 15:01 At the request of: NYDIA DENNIS Procedure: XR chest 1V EXAM: XR chest 1V HISTORY: . cough . COMPARISON: None. TECHNIQUE: Single view of the chest FINDINGS: Heart and vascularity are unremarkable. Lungs are free of focal infiltrates. Grossly no acute bony abnormality is appreciated. Arthritic changes of both shoulders are noted. EKG leads overlie the chest. XR/XR chest 1V IMPRESSION: No acute heart or lung disease identified. Electronically authenticated by: HEATH HANDY Date: 09/25/2024 15:01
--- NOTE | 2024-09-25 14:37 | ECG_ITS ---
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1940 Requested By: MISSAEL MICHAEL Order Number: [id number] Reading MD: PADMINI MERLOS Measurements Intervals [place] Rate: 56 P: 270 NE: 180 QRS: -47 QRSD: 130 T: 62 QT: 446 QTc: 439 Interpretive Statements 1200 Atrial rhythm 3413 Cannot rule out septal myocardial infarction, probably old 5234 Left ventricular hypertrophy with repolarization abnormality 7200 Abnormal left axis deviation 9150 abnormal ECG Compared to ECG 12/28/2022 15:55:35 Myocardial infarct finding now present Left ventricular hypertrophy now present Early repolarization now present Sinus bradycardia no longer present First degree AV block no longer present Electronically Signed On 09-26-2024 5:30:07 EST by PADMINI MERLOS
--- NOTE | 2024-09-25 14:39 | ED_ITS ---
HPI HPI - General Adult General Chief complaint: Upper Respiratory Infection Stated complaint: WHEEZING Time Seen by Provider: 09/25/24 14:31 Source: patient Mode of arrival: Wheelchair Limitations: no limitations History of Present Illness HPI narrative: Patient presented to the emergency department for evaluation of cough. Patient states for the last 2 to 3 days she has been having cough, yellow-green sputum production, no fevers or chills. No difficulty breathing, no chest pain, shortness of breath. Patient's son states that she is breathing and trying to eat at the same time and sounds like she is wheezing. She states she smokes about 1/4 pack of cigarettes per day for a very long time states she used to smoke much more heavily than that. No specific history of COPD or Asthma. States that she does recall the last time she was at the hospital in her PCP office they told her her blood pressure was very very high. Patient states she not having any headache, blurry vision, double vision, chest pain. States is just that she sounds wheezing audibly while trying to eat and breathe at this time and has a history of getting recurrent bronchitis. Green and yellow sputum for the last 2 days. Related Data Home Medications ?Medication ?Instructions ?Recorded ?Confirmed amiodarone 200 mg tablet 100 mg PO .every other day 07/22/23 09/25/24 atorvastatin 40 mg tablet 40 mg PO .hs 07/22/23 09/25/24 calcium carbonate-vitamin D3 1 tab .Route BID 07/22/23 09/25/24 cholecalciferol (vitamin D3) 62.5 mcg PO 07/22/23 mcg (2,500 unit) capsule levetiracetam 500 mg tablet 500 mg PO Q12H 07/22/23 09/25/24 omeprazole 20 mg capsule,delayed 20 mg PO BID 07/22/23 09/25/24 release aspirin 81 mg tablet,delayed 81 mg PO DAILY 09/18/23 09/25/24 release (Adult Low Dose Aspirin) levothyroxine 75 mcg tablet 75 mcg PO Q24H 09/18/23 09/25/24 lisinopril 10 mg tablet 10 mg PO Q24H 09/18/23 09/25/24 Allergies Allergy/AdvReac Type Severity Reaction Status Date / Time penicillin G AdvReac Intermediate Verified 09/18/23 09:29 Opioid HPI Opioid Management Most Recent Opioid Data: No Data to Display Review of Systems ROS Narrative Negative unless otherwise stated in the HPI PFSH PFSH Social History Smoking status: Current every day smoker Little interest or pleasure in doing things: not at all Feeling down, depressed, or hopeless: not at all Exam Narrative Exam Narrative: General: NAD, AAOx3, no distress Eyes: PERRL, EOMI, lids/conjunctiva normal. HEENT: NCAT, no JVD Respiratory: respiratory effort normal, speaks in full sentences, no tripod posi tion, no accessory muscle use. Lungs clear to auscultation without rhonchi, wheezes, rales Cardiac: Regular rate and rhythm, no edema, regular s1/s2, no m/g/r Constitutional Vital Signs, click to edit/add: Last Vital Signs Temp 98.2 F 09/25/24 14:22 Pulse 59 L 09/25/24 15:09 Resp 17 09/25/24 15:09 BP 165/85 H 09/25/24 15:09 Pulse Ox 98 09/25/24 15:09 O2 Del Method Room Air 09/25/24 14:50 Course Vital Signs Vital signs: Vital Signs Temperature 98.2 F 09/25/24 14:22 Pulse Rate 71 09/25/24 14:22 Respiratory Rate 18 09/25/24 14:22 Blood Pressure 214/86 H 09/25/24 14:22 Pulse Oximetry 96 09/25/24 14:22 Oxygen Delivery Method Room Air 09/25/24 14:22 Temperature 98.2 F 09/25/24 14:22 Pulse Rate 59 L 09/25/24 15:09 Respiratory Rate 17 09/25/24 15:09 Blood Pressure 165/85 H 09/25/24 15:09 Pulse Oximetry 98 09/25/24 15:09 Oxygen Delivery Method Room Air 09/25/24 14:50 Medical Decision Making MDM Narrative Medical decision making narrative: Pt who presented to the ER today for URI symptoms. Patient on exam was well appearing and non toxic appearing. Vitals were reviewed. Patient has no symptoms of otitis media, pneumonia, bacterial pharyngitis or other serious bacterial illness. Respiratory status is unremarkable. At this point in time, patient likely has viral syndrome with no indications for antibiotics. I have recommended fluids and motrin for symptomatic control. Close follow up with PCP. Advanced guidance has been given. Vss, pex is benign at this time. Pt to fu with pcp 1-2 days for reeval, rter should sx worsen, persist or become worrysome in any way. Pt expressed understanding and agreement with plan of care at this time. Will fu as planned. Pt stable for discharge. Lab Data Labs: Lab Results 09/25/24 Range/Units 14:48 WBC 7.6 (4.0-11.0) 10^3/uL RBC 4.54 (4.20-5.40) 10^6/uL Hgb 14.2 (12.0-16.0) g/dL Hct 43.5 (36.0-48.0) % MCV 95.8 (81.0-99.0) fL MCH 31.3 (26.7-34.0) pg MCHC 32.6 (29.9-35.2) g/dL RDW 13.2 (11.0-15.0) % Plt Count 195 (150-450) 10^3/uL MPV 10.6 (9.5-13.5) fL Neut % (Auto) 51.3 (43.0-75.0) % Lymph % (Auto) 40.7 (20.5-60.0) % [place] % (Auto) 5.3 (1.7-12.0) % Eos % (Auto) 1.1 (0.9-7.0) % Baso % (Auto) 0.9 (0.2-2.0) % Neut # (Auto) 3.9 (1.4-6.5) 10^3/uL Lymph # (Auto) 3.1 (1.2-3.8) 10^3/uL [place] # (Auto) 0.4 (0.3-0.8) 10^3/uL Eos # (Auto) 0.1 (0.0-0.7) 10^3/uL Baso # (Auto) 0.1 (0.0-0.1) 10^3/uL Abs Immat Gran (auto) 0.05 H (0.00-0.03) 10^3/uL Imm/Tot Granulo (auto) 0.7 H (0.0-0.5) % Sodium 144 (136-145) mmol/L Potassium 3.6 (3.5-5.1) mmol/L Chloride 108 H (98-107) mmol/L Carbon Dioxide 27.1 (21.0-32.0) mmol/L Anion Gap 12.5 BUN 19.0 H (7.0-18.0) mg/dL Creatinine 1.23 H (0.55-1.02) mg/dL Est GFR ( Amer) 50 L (>=60 mL/min/1.73m^2) Est GFR (Non-Af Amer) 41 L (>=60 mL/min/1.73m^2) BUN/Creatinine Ratio 15.4 Glucose 106 (74-106) mg/dL Calcium 9.1 (8.5-10.1) mg/dL Troponin I High Sens 8.8 (4.0-51.3) pg/mL Discharge Plan Discharge Chief Complaint: Upper Respiratory Infection Clinical Impression: Upper respiratory infection Patient Disposition: Home, Self-Care Time of Disposition Decision: 15:44 Prescriptions / Home Meds: No Action amiodarone 200 mg tablet 100 mg PO .every other day atorvastatin 40 mg tablet 40 mg PO .hs levetiracetam 500 mg tablet 500 mg PO Q12H omeprazole 20 mg capsule,delayed release(DR/EC) 20 mg PO BID cholecalciferol (vitamin D3) 62.5 mcg (2,500 unit) capsule PO calcium carbonate-vitamin D3 [Caltrate 600 plus D] 1 tab .Route BID levothyroxine 75 mcg tablet 75 mcg PO Q24H lisinopril 10 mg tablet 10 mg PO Q24H aspirin [Adult Low Dose Aspirin] 81 mg tablet,delayed release (DR/EC) 81 mg PO DAILY Print Language: Algerian Instructions: Upper Respiratory Infection (DC) Additional Instructions: Follow-up with your PCP in the next 1 to 2 days. Return to the emergency department should symptoms worsen or become worrisome in any way. Referrals: MISSAEL MICHAEL [Primary Care Provider] - 1 week
[2024-09-25] MEDS: ALBUTEROL SULFATE 2.5 MG/3 ML VIAL NEB IH (14:49)
[2024-09-25 15:02] LABS: Basophils Absolute Auto 0.1 10^3/uL (0.0-0.1); Basophils Percent Auto 0.9 % (0.2-2.0); Eosinophils Absolute Auto 0.1 10^3/uL (0.0-0.7); Eosinophils Percent Auto 1.1 % (0.9-7.0); Hematocrit 43.5 % (36.0-48.0); Hemoglobin 14.2 g/dL (12.0-16.0); Immature Granulocytes Abs Auto 0.05 10^3/uL (0.00-0.03); Immature Granulocytes Pct Auto 0.7 % (0.0-0.5); Lymphocytes Absolute Auto 3.1 10^3/uL (1.2-3.8); Lymphocytes Percent Auto 40.7 % (20.5-60.0); Mean Corpuscular HGB Conc 32.6 g/dL (29.9-35.2); Mean Corpuscular Hemoglobin 31.3 pg (26.7-34.0); Mean Corpuscular Volume 95.8 fL (81.0-99.0); Mean Platelet Volume 10.6 fL (9.5-13.5); Monocytes Absolute Auto 0.4 10^3/uL (0.3-0.8); Monocytes Percent Auto 5.3 % (1.7-12.0); Neutrophils Absolute Auto 3.9 10^3/uL (1.4-6.5); Neutrophils Percent Auto 51.3 % (43.0-75.0); Platelet Count 195 10^3/uL (150-450); Red Blood Count 4.54 10^6/uL (4.20-5.40); Red Cell Distribution Width 13.2 % (11.0-15.0); White Blood Count 7.6 10^3/uL (4.0-11.0)
[2024-09-25 15:12] LABS: Anion Gap 12.5; BUN Creatinine Ratio 15.4; Calcium 9.1 mg/dL (8.5-10.1); Carbon Dioxide 27.1 mmol/L (21.0-32.0); Chloride 108 mmol/L (98-107); Estimated GFR (African America 50 (>=60 mL/min/1.73m^2); Estimated GFR (Non-African Ame 41 (>=60 mL/min/1.73m^2); Glucose 106 mg/dL (74-106); Potassium 3.6 mmol/L (3.5-5.1); Sodium 144 mmol/L (136-145); Troponin I High Sensitivity 8.8 pg/mL (4.0-51.3)
== END 2024-09-25 15:57 | disposition home or self-care (01) ==
PROVIDERS: Emergency Provider Emergency Medicine; PCP Internal Medicine
DX: J06.9 Acute upper respiratory infection, unspecified (principal); F17.210 Nicotine dependence, cigarettes, uncomplicated
CPT/HCPCS: 36415; 71045; 80048; 84484; 85025; 93005; 94640; 99285

== ENCOUNTER 2025-01-06 12:47 | Emergency (ER) | payer MEDICARE, OTHER, SELFPAY ==
[2025-01-06 12:49] VITALS: BP 193/100; PULSE 62; TEMP 36.7; O2SAT 98; BMI 30.6
--- OUTSIDE RECORDS SUMMARY | 2025-01-06 12:58 | XMS_ITS | CCD ---
Author Organization [facility] Care Team Providers Care Edge Grinder Machine Name Role Phone Unavailable Unavailable PAOLO Bowie Primary Care Provider MD Gus Curtis Attending Provider Unavailable Unavailable VALERIE HEAD Admitting Unavailable DR FERNANDO BOWIE Primary Care Unavailable NA .LISA Consulting UnavailEmir Daly, VALERIE Attending Unavailable SERENA DE JESUS Consulting Unavailable PAOLO Daly, VALERIE Attending Unavailable DR HEATH CHANG V Consulting Unavailable VALERIE HEAD Admitting Unavailable DR FERNANDO BOWIE Primary Care Unavailable VALERIE HEAD Consulting Unavailable Fernando Bowie Unavailable Farhad BOONE, Dr. Gus Saldivar Referring Unavailable Farhad BOONE, Dr. Gus Saldivar Attending Unavailable Jamir BOONE, Dr. Fernando Beaver Primary Care Fatimah vailable Jamir BOONE, Dr. Fernando Beaver Primary Care Fatimah vailable Farhad BOONE, Dr. Gus Saldivar Referring Unavailable Farhad BOONE, Dr. Gus Saldivar Attending Unavailable Fernando Bowie MD Primary Care Provider [phone] PAOLO Bowie Primary Care Provider MD Gus Curtis Attending Provider Gus Curtis Admitting Unavail able Gus Curtis Attending Unavail able Fernando Bowie Primary Care Unavailable Gus Curtis Attending Unavail able Fernando Bowie Primary Care Unavailable Gus Curtis Admitting Unavail able GUS CURTIS Referring Unavailable FERNANDO BOWIE Primary Care Unavailable Fernando Bowie MD Primary Care Provider [phone] Fernando Bowie MD Unavailable [phone] GUS CURTIS Attending Unavailable FERNANDO BOWIE Primary Care Unavailable ADRIANA NEAL Attending Unavailable GUS CURTIS Referring Unavailable FERNANDO BOWIE Primary Care Unavailable NEHA BLANCHARD Attending Unavailable FERNANDO BOWIE Attending Unavailable MIMI DSOUZA Attending Unavailable NEHA BLANCHARD Attending Unavailable FERNANDO BOWIE Attending Unavailable MIMI DSOUZA Attending Unavailable NEHA BLANCHARD Attending Unavailable FERNANDO BOWIE Attending Unavailable MIMI DSOUZA Attending Unavailable Allergies Allergy Classification Reported Allergen(s) Allergy Type Date of Onset Reaction(s) Facility (16 sources) meloxicam; Translations: [meloxicam] Drug Allergy 1 Diarrhea [facility] (13 sources) Penicillins; Translations: [Penicillins] Allergy to drug (finding) 0 Flushing, Edema, Swelling of Lip/Tongue/Thro at [facility] (1 source) meloxicam Drug Allergy [facility] (1 source) Penicillins Drug allergy (disorder) 6 [facility] (2 sources) Penicillins Drug Allergy 3 Swelling, Other [facility] Work Phone: (1 source) meloxicam Drug Allergy 1 [facility] (1 source) Penicillins Drug allergy (disorder) 1 [facility] (9 sources) meloxicam Drug Allergy 3 Diarrhea [facility] (9 sources) Penicillin G Drug Allergy 3 Unknown [facility] Medications Current Medications Medication Drug Class(es) Dates Sig (Normalized) Sig (Original) acetaminophen 325 mg / HYDROcodone bitartrate 5 mg oral tablet (6 sources) Opioid Agonist Start: 03-27-2019 take 0.5 tablet by mouth every four to six hours Hydrocodone-Acetami nophen ([place]) 5-325 mg Tablet Active 0.5 TAB PO EVERY 4-6 HOURS 7 3 December 12, 2019 amiodarone hydrochloride 200 mg oral tablet (20 sources) Antiarrhythmic Start: 10-01-2023 End: 03-01-2025 amiodarone [...] 10, 2017 11:00pm alternates QOD with 200mg amiodarone (Pace nando) 100 MG tablet Take 100 mg by mouth every other day. Alternate with 200mg Active Amiodarone HCl - 200 MG Oral Tablet TAKE 1 TABLET alternating with 1/2 tablet daily Quantity: 90 Refills: 1 Ordered: 11-Aug-2022 Geoff Neal APRN-FRUIT VENDOR, Adriana Active aspirin 81 mg delayed release oral tablet (20 sources) Platelet Aggregation Inhibitor, Nonsteroidal Anti-inflammatory Drug Start: 08-11-2017 take 81 mg by mouth once daily Aspirin Active 81 MG PO Daily August 10, 2017 11:00pm atorvastatin 40 mg oral tablet (20 sources) HMG-CoA Reductase Inhibitor Start: 08-11-2017 End: 08-17-2025 take 1 tablet by mouth at bedtime atorvastatin (Lipitor) 40 MG tablet Indications: Familial combined hyperlipidemia (CMS/HCC) Take 1 tablet (40 mg) by mouth at bedtime 100 tablet 3 07/13/2024 08/17/2025 Active bismuth tribromophenate 0.03 mg/mg topical ointment (2 sources) Start: 05-04-2024 End: 08-02-2024 apply 1 dose transdermal route once daily Bismuth Tribromoph-Petrola tereza (Xeroform Petrolat Patch 4 x4 ) pads Indications: Pressure injury of sacral region, stage 2 (CMS/HCC) Apply 1 patch topically Daily 30 each 2 05/04/2024 08/02/2024 Active Calcium-Phosphorus- Vitamin D (Citracal Calcium Gummies) 250-115-250 MG-MG-UNIT chewable tablet (9 sources) Calcium-Phosphor us -Vitamin D (Citracal Calcium Gummies) 250-115-250 MG-MG-UNIT chewable tablet 1 (one) time each day at the same time. Active cholecalciferol 0.05 mg oral tablet (14 sources) Vitamin D Start: 12-12-2019 take 50 ug by mouth once daily Cholecalciferol (Vitamin D3) Active 50 MCG PO Daily December 12, 2019 12:00am End: 03-01-2024 take 1 tablet by mouth once daily cholecalciferol (Vitamin D-3) 5,000 Units tablet Take 1 tablet (5,000 Units) by mouth once daily. 03/01/2024 Discontinued (Therapy completed) diclofenac sodium 20 mg/ml topical solution (9 sources) Nonsteroidal Anti-inflammatory Drug Start: 04-15-2023 Diclofenac Sodium (Pennsaid) 2 % solution Indications: Pseudogout of left knee Apply 40 drops topically in the morning and 40 drops before bedtime. 60 g 5 04/15/2023 Active docusate sodium 100 mg oral capsule (3 sources) Start: 12-12-2019 take 100 mg by mouth twice daily Docusate Sodium Active 100 MG PO Twice daily December 12, 2019 12:00am levETIRAcetam 250 mg oral tablet (20 sources) Start: 07-13-2024 End: 07-13-2025 levETIRAcetam (Keppra) 250 MG tablet Indications: Focal seizures (CMS/HCC) Take 2 tablets (500 mg) by mouth every 12 (twelve) hours 360 tablet 3 07/13/2024 07/13/2025 Active Start: 08-11-2017 take 500 mg by mouth every twelve hours Levetiracetam Active 500 MG PO Q12H August 10, 2017 11:00pm take 1 tablet by boone th twice daily levETIRAcetam (Keppra) 500 mg tablet Take 1 tablet (500 mg) by mouth 2 times a day. Active levothyroxine sodium 0.075 mg oral tablet (20 sources) l-Thyroxine Start: 10-24-2024 End: 10-24-2025 take 1 tablet by mouth in the morning levothyroxine (Synthroid, Levoxyl) 75 MCG tablet Indications: Acquired hypothyroidism (CMS/HCC) Take 1 tablet (75 mcg) by mouth in the morning. Take on an empty stomach.. 100 tablet 3 10/24/2024 10/24/2025 Active Start: 09-22-2023 End: 09-21-2024 take 1 tablet by mouth in the morning levothyroxine (Synthroid, Levoxyl) 75 MCG tablet Indications: Acquired hypothyroidism (CMS/HCC) Take 1 tablet (75 mcg) by mouth in the morning. Take on an empty stomach.. 100 tablet 3 09/22/2023 Active Start: 08-11-2017 take 100 ug by mouth once daily Levothyroxine Active 100 MCG PO Daily August 10, 2017 11:00pm lisinopril 10 mg oral tablet (20 sources) Angiotensin Converting Enzyme Inhibitor Start: 08-11-2017 take 1 tablet by mouth once daily lisinopril 10 MG tablet Indications: Benign essential hypertension (CMS/HCC) Take 1 tablet (10 mg) by mouth Daily 100 tablet 3 05/15/2024 Active nystatin 100 unt/mg topical powder (9 sources) Polyene Antifungal Start: 01-12-2024 End: 01-11-2025 nystatin (Mycostatin) 193462 UNIT/GM powder Indications: Jessie infection Apply topically 2 (two) times a day 60 g 1 01/12/2024 01/11/2025 Active omeprazole 20 mg delayed release oral capsule (20 sources) Proton Pump Inhibitor Start: 06-21-2024 take 1 capsule by mouth every twelve hours for gastroesophageal reflux disease and gastroesophageal reflux disease omeprazole (PriLOSEC) [address] capsule Indications: Gastroesophageal reflux disease, unspecified whether esophagitis present TAKE 1 CAPSULE BY MOUTH EVERY 12 HOURS 200 capsule 3 06/21/2024 Active Start: 08-11-2017 take 1 tablet by boone th twice daily Omeprazole Magnesium (Prilosec Otc) 20 mg Tablet,Delayed Release (Dr/Ec) Active 20 MG PO Twice daily August 10, 2017 11:00pm take 1 tablet by boone th once daily omeprazole OTC (PriLOSEC OTC) 20 mg EC tablet Take 1 tablet (20 mg) by mouth once daily. Active tiZANidine 4 mg oral capsule (9 sources) Central alpha-2 Adrenergic Agonist take 1 capsule by mouth in the morning, then take 1 capsule by mouth in the evening, then take 1 capsule by mouth at bedtime tiZANidine (Zanaflex) 4 MG capsule Take 4 mg by mouth in the morning and 4 mg in the evening and 4 mg before bedtime. Active Completed/Discontinued Medications Medication Drug Class(es) Dates Sig (Normalized) Sig (Original) amLODIPine 2.5 mg oral tablet (15 sources) Dihydropyridine Calcium Channel Roberto Start: 08-11-2017 [...] mg / cholecalciferol 0.005 mg oral tablet (9 sources) Vitamin D Start: 08-11-2017 End: 12-12-2019 take 1 tablet by mouth three times daily Calcium Citrate-Vitamin D3 (Citracal Regular) 250 mg calcium- 200 unit Tablet Discontinued 1 TAB PO Three times daily August 10, 2017 11:00pm December 12, 2019 12:18pm take 1 tablet by boone th three times daily calcium citrate-vitamin D3 200 mg-6.25 m cg (250 unit) tablet Take 1 tablet by mouth 3 times a day. Active cephalexin 500 mg oral tablet (3 sources) Cephalosporin Antibacterial Start: 08-13-2017 End: 08-20-2017 take 500 mg by mouth four times daily Cephalexin Discontinued 500 MG PO Four times daily 14 05August 12, 2017 11:00pm August 19, 2017 11:04pm [...] Problem Classification Problem Date Documented Date Episodic/Chronic Acquired foot deformities (9 sources) Hammer toe; Translations: [Other hammer toe(s) (acquired), right foot] Onset: 04-08-2023 04-08-2023 Chronic Acute cerebrovascular disease (20 sources) Cerebrovascular accident; Translations: [Cerebral artery occlusion, unspecified with cerebral infarction] Onset: 10-01-2023 03-01-2024 Chronic Cardiac dysrhythmias (20 sources) Paroxysmal atrial fibrillation; Translations: [Atrial fibrillation] Onset: 12-29-2022 03-01-2024 Chronic Chronic kidney disease (14 sources) Chronic kidney disease stage 3B ; Translations: [Stage 3b chronic kidney disease (HCC)] Onset: 04-08-2023 04-08-2023 Chronic Chronic obstructive pulmonary disease and bronchiectasis (10 sources) Chronic obstructive pulmonary disease with (acute) exacerbation; Translations: [Chronic obstructive lung disease] Onset: 12-29-2022 04-08-2023 Chronic Coronary atherosclerosis and other heart disease (9 sources) Coronary arteriosclerosis; Translations: [Atherosclerotic heart disease of [place] coronary artery without angina pectoris] Onset: 04-08-2023 04-08-2023 Chronic Delirium, dementia, and amnestic and other cognitive disorders (9 sources) Frailty; Translations: [Age-related physical debility] Onset: 04-08-2023 04-08-2023 Chronic Diabetes mellitus with complications (1 source) Type 2 diabetes mellitus with diabetic chronic kidney disease; Translations: [TYPE 2 DM W/DIABETIC CKD] Onset: 12-29-2022 Chronic Diabetes mellitus without complication (1 source) Type 2 diabetes mellitus without complications; Translations: [TYPE 2 DM WITHOUT COMPLICATIONS] Onset: 08-10-2022 Chronic Disorders of lipid metabolism (20 sources) Hyperlipidemia; Translations: [Other and unspecified hyperlipidemia] Onset: 04-08-2023 03-01-2024 Chronic Diverticulosis and diverticulitis (9 sources) Diverticulosis of colon; Translations: [Diverticulosis of large intestine without perforation or abscess without bleeding] Onset: 04-08-2023 04-08-2023 Chronic Epilepsy; convulsions (1 source) Epilepsy, unspecified, not intractable, without status epilepticus; Translations: [EPILEPSY UNS NOT INTRACT W/O SE] Onset: 12-29-2022 Chronic Essential hypertension (20 sources) Essential hypertension; Translations: [Unspecified essential hypertension] Onset: 08-10-2022 08-12-2017 Chronic Gout and other crystal arthropathies (18 sources) Chondrocalcinosis; Translations: [Other chondrocalcinosis, unspecified site] Onset: 04-08-2023 04-08-2023 Chronic Hypertension with complications and secondary hypertension (1 source) Hypertensive chronic kidney disease with stage 1 through stage 4 chronic kidney disease, or unspecified chronic kidney disease; Translations: [HTN CKD W/STAGE 1-4 CKD/UNS CKD] Onset: 12-29-2022 Chronic Immunizations and screening for infectious disease (2 sources) Vaccination needed; Translations: [Encounter for immunization] 10-04-2024 Episodic Late effects of cerebrovascular disease (9 sources) Late effects of cerebrovascular disease; Translations: [Unspecified sequelae of unspecified cerebrovascular disease] Onset: 04-08-2023 04-08-2023 Chronic Menopausal disorders (1 source) Hormone replacement therapy; Translations: [HORMONE REPLACEMENT THERAPY] Onset: 12-29-2022 Episodic Mycoses (2 sources) Onychomycosis due to dermatophyte ; Translations: [Tinea unguium] 07-17-2024 Episodic Open wounds of head; neck; and trunk (3 sources) Tear of skin; Translations: [Skin tear] 11-19-2017 Episodic Osteoarthritis (20 sources) Bilateral primary osteoarthritis of knee; Translations: [Unilateral primary osteoarthritis, left knee] Onset: 08-10-2022 04-08-2023 Chronic Osteoporosis (9 sources) Osteoporosis; Translations: [Age-related osteoporosis without current pathological fracture] Onset: 04-08-2023 04-08-2023 Chronic Other aftercare (11 sources) Drug therapy finding; Translations: [Long-term (current) use of other medications] Episodic Other aftercare (1 source) 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; Translations: [FCI CURRENT USE OF ASPIRIN] Onset: 12-29-2022 Episodic Other and ill-defined cerebrovascular disease (1 source) Cerebrovascular disease, unspecified; Translations: [CEREBROVASCULAR DISEASE UNSPECIFIED] Onset: 12-29-2022 Chronic Other connective tissue disease (4 sources) Pain in toe; Translations: [Pain in right toe(s)] 07-17-2024 Episodic Other injuries and conditions due to external causes (3 sources) Muscle strain; Translations: [Other injury of unspecified body region, initial encounter] 11-19-2017 Episodic Other nutritional; endocrine; and metabolic disorders (9 sources) Body mass index 30+ - obesity; Translations: [Obesity, unspecified] Onset: 04-08-2023 04-08-2023 Chronic Other nutritional; endocrine; and metabolic disorders (2 [...] metabolic disorders (2 sources) Body mass index (BMI) 29.0-29.9, adult; Translations: [Body mass index (BMI) 29.0-29.9, adult] Onset: 11-21-2024 Episodic Other skin disorders (2 sources) Dystrophia unguium; Translations: [Nail dystrophy] 07-17-2024 Episodic Other upper respiratory infections (2 sources) Viral upper respiratory tract infection; Translations: [Acute upper respiratory infection, unspecified] 10-04-2024 Episodic Peripheral and visceral atherosclerosis (11 sources) Peripheral vascular disease, unspecified; Translations: [Peripheral vascular disease, unspecified] Onset: 04-08-2023 04-08-2023 Chronic Residual codes; unclassified (2 sources) Dependence on wheelchair; Translations: [Wheelchair dependence] Chronic Spondylosis; intervertebral disc disorders; other back problems (20 sources) Bilateral inflammation of sacroiliac joint; Translations: [Sacroiliitis, not elsewhere classified] Onset: 04-08-2023 04-08-2023 Chronic Substance-related disorders (20 sources) Smokes tobacco daily; Translations: [Tobacco use disorder] Onset: 12-29-2022 Resolved: 02-01-2024 08-12-2017 Chronic Comment on above: 4-5 CIGARETTES DAILY ; 2-3 CIGARETTES DAILY ; Thyroid disorders (20 sources) Hypothyroidism; Translations: [Hypothyroidism, unspecified] Onset: 03-22-2023 03-22-2023 Chronic Unclassified (3 sources) COUGH, UNSPECIFIED; Translations: [COUGH, UNSPECIFIED] Onset: 12-29-2022 Unclassified (1 source) CHRN KIDNEY DISEASE STG 3 UNSP; Translations: [CHRN KIDNEY DISEASE STG 3 UNSP] Onset: 12-29-2022 Unclassified (1 source) CONTACT W/AND (SUSP) EXPOS COVID-19; Translations: [CONTACT W/AND (SUSP) EXPOS COVID-19] Onset: 12-29-2022 Past or Other Problems Problem Classification Problem Date Documented Da te Episodic/Chronic Epilepsy; convulsions (9 sources) Partial seizure; Translations: [Unspecified convulsions] Onset: 04-08-2023 04-08-2023 Episodic Malaise and fatigue (12 sources) Asthenia; Translations: [Weakness] Onset: 02-01-2024 08-12-2017 Episodic Other acquired deformities (9 sources) Spondylolisthesis; Translations: [Spondylolisthesis, site unspecified] Onset: 04-08-2023 04-08-2023 Episodic Other aftercare (14 sources) Taking high risk medication; Translations: [Other extermination inspector (current) drug therapy] Onset: 01-10-2024 03-01-2024 Episodic Other aftercare (4 sources) Other correction (current) drug therapy; Translations: [Other correction (current) drug therapy] Onset: 01-10-2024 Episodic Other bone disease and musculoskeletal deformities (9 sources) Osteopenia; Translations: [Other specified disorders of bone density and structure, multiple sites] Onset: 04-08-2023 Resolved: 07-12-2023 07-12-2023 Episodic Other circulatory disease (12 sources) H/O: atrial fibrillation; Translations: [Personal history of other diseases of the circulatory system] Onset: 02-01-2024 08-12-2017 Episodic Other connective tissue disease (9 sources) Muscle weakness; Translations: [Muscle weakness (generalized)] Onset: 04-08-2023 04-08-2023 Episodic Other connective tissue disease (9 sources) Recurrent falls ; Translations: [Repeated falls] Onset: 04-08-2023 04-08-2023 Episodic Other gastrointestinal disorders (9 sources) Constipation; Translations: [Constipation, unspecified] Onset: 04-08-2023 04-08-2023 Episodic Other injuries and conditions due to external causes (12 sources) Contusion; Translations: [Other injury of unspecified body region, initial encounter] Onset: 02-01-2024 03-27-2019 Episodic Other lower respiratory disease (9 sources) Multiple nodules of lung; Translations: [Other nonspecific abnormal finding of lung field] Onset: 04-08-2023 04-08-2023 Episodic Other nervous system disorders (9 sources) Ataxia; Translations: [Ataxia, unspecified] Onset: 04-08-2023 04-08-2023 Episodic Other nervous system disorders (9 sources) Abnormal gait; Translations: [Unspecified abnormalities of gait and mobility] Onset: 04-08-2023 04-08-2023 Episodic Other non-traumatic joint disorders (4 sources) Pain in left knee; Translations: [PAIN IN LEFT KNEE] Onset: 08-07-2022 Episodic Other screening for suspected conditions (not mental disorders or infectious disease) (20 sources) Echocardiogram abnormal; Translations: [Nonspecific (abnormal) findings on radiological and other examination of other intrathoracic organs] Onset: 10-01-2023 10-01-2023 Episodic Residual codes; unclassified (20 sources) Other specified health status; Translations: [Anticoagulant not tolerated] Onset: 01-10-2024 01-10-2024 Episodic Residual codes; unclassified (9 sources) Edema; Translations: [Edema, unspecified] Onset: 04-08-2023 04-08-2023 Episodic Skin and subcutaneous tissue infections (12 sources) Cellulitis of lower limb; Translations: [Cellulitis of left lower limb] Onset: 02-01-2024 08-12-2017 Episodic Spondylosis; intervertebral disc disorders; other back problems (9 sources) Low back pain; Translations: [Low back pain] Onset: 04-08-2023 04-08-2023 Episodic Sprains and strains (12 sources) Strain of neck muscle; Translations: [Strain of muscle, fascia and tendon at neck level, initial encounter] Onset: 02-01-2024 12-12-2019 Episodic Superficial injury; contusion (12 sources) Contusion of scalp; Translations: [Contusion of scalp, initial encounter] Onset: 02-01-2024 12-12-2019 Episodic Unclassified (1 source) COUGH, UNSPECIFIED; Translations: [COUGH, UNSPECIFIED] Onset: 12-28-2022 Unclassified (2 sources) Onset: 03-01-2024 03-01-2024 Results Test Name Value Interpretation Reference Range Facility CBC (INCLUDES DIFF/PLT)on Basophils (Bld) [#/Vol] 0.062 10*3/uL Normal 0-200 [facility] Comment on above: Performed By: #### 7 600, 07203, 6399 #### [facility] of [place] [address] Shower Attendant: Saad Guzman MD Basophils/100 WBC (Bld) 0.8 % Normal [facility] Comment on above: Performed By: #### 7 600, 31403, 6399 #### [facility] [place] [address] Shower Attendant: Saad Guzman MD Eosinophils (Bld) [#/Vol] 0.078 10*3/uL Normal 15-500 [facility] Comment on above: Performed By: #### 7 600, , 6399 #### [facility] [place] [address] Shower Attendant: Saad Guzman MD Eosinophils/100 WBC (Bld) 1.0 % Normal [facility] Comment on above: Performed By: #### 7 600, 69919, 6399 #### [facility] [place] [address] Shower Attendant: Saad Guzman MD Erythrocyte distribution width (RBC) [Ratio] 13.4 % Normal 11.0-15.0 [facility] Comment on above: Performed By: #### 7 600, 02089, 6399 #### [facility] [place] [address] Shower Attendant: Saad Guzman MD Hematocrit (Bld) [Volume fraction] 45.3 % High 35.0-45.0 [facility] Comment on above: Performed By: #### 7 600, 54884, 6399 #### [facility] [place] [address] Shower Attendant: Saad Guzman MD Hemoglobin (Bld) [Mass/Vol] 15.0 g/dL Normal 11.7-15.5 [facility] Comment on above: Performed By: #### 7 600, 59541, 6399 #### [facility] of [address], [address] [place] [address] Shower Attendant: Saad Guzman MD Lymphocytes (Bld) [#/Vol] 2.535 10*3/uL Normal 850-3900 [facility] Comment on above: Performed By: #### 7 600, 41174, 6399 #### [facility] of [address], [address] [place] [address] Shower Attendant: Saad Guzman MD Lymphocytes/100 WBC (Bld) 32.5 % Normal [facility] Comment on above: Performed By: #### 7 600, 60610, 6399 #### [facility] of [address], [address] [place] [address] Shower Attendant: Saad Guzman MD MCH (RBC) [Entitic mass] 31.6 pg Normal 27.0-33.0 [facility] Comment on above: Performed By: #### 7 600, 83394, 6399 #### [facility] of [address], [address] [place] [address] Shower Attendant: Saad Guzman MD MCHC (RBC) [Mass/Vol] 33.1 g/dL Normal 32.0-36.[address] [facility] Comment on above: Result Comment: For adults, a slight decrease in the calculated MCHC value (in the range of 30 to 32 g/dL) is most likely not clinically significant; however, it should be interpreted with caution in correlation with other red cell parameters and the patient's clinical condition. Performed By: #### 7 600, 01584, 6399 #### [facility] of [address], [address] [place] [address] Shower Attendant: Saad Guzman MD MCV (RBC) [Entitic vol] 95.4 fL Normal 80.0-100.0 [facility] Comment on above: Performed By: #### 7 600, 05055, 6399 #### [facility] of [address], [address] [place] [address] Shower Attendant: Saad Guzman MD Monocytes (Bld) [#/Vol] 0.46 10*3/uL Normal 200-950 [facility] Comment on above: Performed By: #### 7 600, 49738, 6399 #### [facility] [place] [address] Shower Attendant: Saad Guzman MD Monocytes/100 WBC (Bld) 5.9 % Normal [facility] Comment on above: Performed By: #### 7 600, 54317, 6399 #### [facility] [place] [address] Shower Attendant: Saad Guzman MD Neutrophils (Bld) [#/Vol] 4.664 10*3/uL Normal 3958-6529 [facility] Comment on above: Performed By: #### 7 600, 90754, 6399 #### [facility] [place] [address] Shower Attendant: Saad Guzman MD Neutrophils/100 WBC (Bld) 59.8 % Normal [facility] Comment on above: Performed By: #### 7 600, 76285, 6399 #### [facility] [place] [address] Shower Attendant: Saad Guzman MD Platelet mean volume (Bld) [Entitic vol] 11.5 fL Normal 7.5-12.5 [facility] Comment on above: Performed By: #### 7 600, 58540, 6399 #### [facility] [place] [address] Shower Attendant: Saad Guzman MD Platelets (Bld) [#/Vol] 183 10*3/uL Normal 140-400 [facility] Comment on above: Performed By: #### 7 600, 03129, 6399 #### [facility] [place] [address] Shower Attendant: Saad Guzman MD RBC (Bld) [#/Vol] 4.75 10*6/uL Normal 3.80-5.10 [facility] Diagnostics Comment on above: Performed By: #### 7 600, 26822, 6399 #### [facility] [address] [place], [place] [address] , [address] [place] [address] Shower Attendant: Saad Guzman MD WBC (Bld) [#/Vol] 7.8 10*3/uL Normal 3.8-10.8 [facility] Comment on above: Performed By: #### 7 600, 87500, 6399 #### [facility] [address], [address] [place] [address] Shower Attendant: Saad Guzman MD CBC W Auto Differential pane l (Bld)on 09-14-2024 Basophils (Bld) [#/Vol] 62 10*3/uL [facility] Basophils/100 WBC (Bld) 0.8 % N [facility] Eosinophils (Bld) [#/Vol] 78 10*3/[facility] WBC (Bld) 1 % [facility] Erythrocyte distribution width (RBC) [Ratio] 13.4 % 11.0 - 15.0 % [facility] Hematocrit (Bld) [Volume fraction] 45.3 % High 35.0 - 45.0 % [facility] Hemoglobin (Bld) [Mass/Vol] 15 g/dL 11.7 - 15.5 g/dL [facility] Lymphocytes (Bld) [#/Vol] 2535 10*3/uL [facility] Lymphocytes/100 WBC (Bld) 32.5 % [facility] MCH (RBC) [Entitic mass] 31.6 pg 27.0 - 33.0 pg [facility] MCHC (RBC) [Mass/Vol] 33.1 g/dL 32.0 - 36.0 g/dL [facility] Comment on above: For adults, a slight decrease in the calculated MCHC value (in the range of 30 to 32 g/dL) is most likely not clinically significant; however, it should be interpreted with caution in correlation with other red cell parameters and the patient's clinical condition. MCV (RBC) [Entitic vol] 95.4 fL 80.0 - 100.0 fL [facility] Monocytes (Bld) [#/Vol] 460 10*3/uL [facility] Monocytes/100 WBC (Bld) 5.9 % [facility] Neutrophils (Bld) [#/Vol] 4664 10*3/uL [facility] Neutrophils/100 WBC (Bld) 59.8 % [facility] Platelet mean volume (Bld) [Entitic vol] 11.5 fL 7.5 - 12.5 fL [facility] Platelets (Bld) [#/Vol] 183 10*3/uL [facility] RBC (Bld) [#/Vol] 4.75 10*6/uL [facility] WBC (Bld) [#/Vol] 7.8 10*3/uL [facility] COMPREHENSIVE METABOLIC PANE [facility] 09-14-2024 Albumin [Mass/Vol] 4.1 g/dL Normal 3.6-5.1 [facility] Comment on above: Performed By: #### 7 600, 34144, 6399 #### [facility] [place] [address] Shower Attendant: Saad Guzman MD Albumin/Globulin [Mass ratio] 1.7 {ratio} Normal 1.0-2.5 [facility] Comment on above: Performed By: #### 7 600, 97611, 6399 #### [facility] [place] [address] Shower Attendant: Saad Guzman MD ALP [Catalytic activity/Vol] 65 U/L Normal 37-153 [facility] Comment on above: Performed By: #### 7 600, 57000, 6399 #### [facility] [place] [address] Shower Attendant: Saad Guzman MD ALT [Catalytic activity/Vol] 9 U/L Normal 6-29 [facility] Comment on above: Performed By: #### 7 600, 91090, 6399 #### [facility] [place] [address] Shower Attendant: Saad Guzman MD AST [Catalytic activity/Vol] 12 U/L Normal 10-35 [facility] Comment on above: Performed By: #### 7 600, 15706, 6399 #### [facility] of [address], [address] [place] [address] Shower Attendant: Saad Guzman MD Bilirubin [Mass/Vol] 0.5 mg/dL Normal 0.2-1.2 Ques t Diagnostics Comment on above: Performed By: #### 7 600, 24195, 6399 #### [facility] of [address], [address] [place] [address] Shower Attendant: Saad Guzman MD Calcium [Mass/Vol] 9.5 mg/dL Normal 8.6-10.4 [facility] Comment on above: Performed By: #### 7 600, 25232, 6399 #### [facility] of [place] [address] Shower Attendant: Saad Guzman MD Chloride [Moles/Vol] 105 mmol/L Normal 98-110 Ques t [facility] Comment on above: Performed By: #### 7 600, , 6399 #### [facility] of [place] [address] Shower Attendant: Saad Guzman MD CO2 [Moles/Vol] 28 mmol/L Normal 20-32 [facility] Comment on above: Performed By: #### 7 600, 00106, 6399 #### [facility] of [place] [address] Shower Attendant: Saad Guzman MD Creatinine [Mass/Vol] 1.10 mg/dL High 0.60-0.[address] [facility] Comment on above: Performed By: #### 7 600, 61842, 6399 #### [facility] of [place] [address] Shower Attendant: Saad Guzman MD GFR/1.73 sq M.predicted among non-blacks MDRD (S/P/Bld) [Vol rate/Area] 49 mL/min/{1.73_m2} Low > OR = 60 [facility] Comment on above: Performed By: #### 7 600, 23210, 6399 #### [facility] of [address], [address] [place] [address] Shower Attendant: Saad Guzman MD Globulin (S) [Mass/Vol] 2.4 g/dL Normal 1.9-3.7 Q uest Diagnostics Comment on above: Performed By: #### 7 600, 95679, 6399 #### [facility] of [address], [address] [place] [address] Shower Attendant: Saad Guzman MD Glucose [Mass/Vol] 98 mg/dL Normal 65-99 [facility] Comment on above: Result Comment: Fasting reference interval Performed By: #### 7 600, 65903, 6399 #### [facility] of [address], [address] [place] [address] Shower Attendant: Saad Guzman MD Potassium [Moles/Vol] 4.2 mmol/L Normal 3.5-5.[address] [facility] Comment on above: Performed By: #### 7 600, 56826, 6399 #### [facility] of [address], [address] [place] [address] Shower Attendant: Saad Guzman MD Protein [Mass/Vol] 6.5 g/dL Normal 6.1-8.1 [facility] Comment on above: Performed By: #### 7 600, 40248, 6399 #### [facility] of [address], [address] [place] [address] Shower Attendant: Saad Guzman MD Sodium [Moles/Vol] 142 mmol/L Normal 135-146 [facility] Comment on above: Performed By: #### 7 600, 45752, 6399 #### [facility] of [address], [address] [place] [address] Shower Attendant: Saad Guzman MD Urea nitrogen [Mass/Vol] 21 mg/dL Normal 7-25 [facility] Comment on above: Performed By: #### 7 600, 81411, 6399 #### [facility] of [address], [address] [place] [address] Shower Attendant: Saad Guzman MD Urea nitrogen/Creatinine [Mass ratio] 19 mg/mg Normal 6-22 [facility] Comment on above: Performed By: #### 7 600, 08360, 6399 #### [facility] [address], [address] [place] [address] Shower Attendant: Saad Guzman MD LIPID PANEL, [address] Cholesterol [Mass/Vol] 170 mg/dL Normal <200 Qu est Diagnostics Comment on above: Order Comment: FASTI NG:UNKNOWN FASTING: UNKNOWN Performed By: #### 7 600, 43856, 6399 #### [facility] [address], [address] [place] [address] Shower Attendant: Saad Guzman MD Cholesterol in HDL [Mass/Vol] 54 mg/dL Normal > OR = 50 [facility] Comment on above: Order Comment: FASTI NG:UNKNOWN FASTING: UNKNOWN Performed By: #### 7 600, 78911, 6399 #### [facility] [address], [address] [place] [address] Shower Attendant: Saad Guzman MD Cholesterol in LDL [Mass/Vol] 93 mg/dL Normal [facility] Comment on above: Order Comment: FASTI NG:UNKNOWN FASTING: UNKNOWN Result Comment: Refe rence range: <100 Desirable range <100 mg/dL for primary prevention; <70 mg/dL for patients with CHD or diabetic patients with > or = 2 CHD risk factors. LDL-C is now calculated using the Edward-Kailee calculation, which is a validated novel method providing better accuracy than the Friedewald equation in the estimation of LDL-C. Edward HARTLEY et al. JERZY. 2013;310(19): 2673-0110 (http://education.Affinergy.ABPathfinder/faq/DQT638) Performed By: #### 7 600, 07711, 6399 #### [facility] [address], [address] [place] [address] Shower Attendant: Saad Guzman MD Cholesterol.total/Elly sterol in HDL [Mass ratio] 3.1 {ratio} Normal <5.0 [facility] Comment on above: Order Comment: FASTI NG:UNKNOWN FASTING: UNKNOWN Performed By: #### 7 600, 08626, 6399 #### [facility] [address], [address] [place] [address] Shower Attendant: Saad Guzman MD NON HDL CHOLESTEROL 116 mg/dL (calc) Normal <130 [facility] Comment on above: Order Comment: FASTI NG:UNKNOWN FASTING: UNKNOWN Result Comment: For patients with diabetes plus 1 major ASCVD risk factor, treating to a non-HDL-C goal of <100 mg/dL (LDL-C of <70 mg/dL) is considered a therapeutic option. Performed By: #### 7 600, 49519, 6399 #### [facility] [address], [address] [place] [address] Shower Attendant: Saad Guzman MD Triglyceride [Mass/Vol] 135 mg/dL Normal <150 Q uest Diagnostics Comment on above: Order Comment: FASTI NG:UNKNOWN FASTING: UNKNOWN Performed By: #### 7 600, 19266, 6399 #### [facility] [address], [address] [place] [address] Shower Attendant: Saad Guzman MD Laboratory - Chemistry and C hemistry - challengeon 09-14-2024 Albumin [Mass/Vol] 4.1 g/dL 3.6 - 5.1 g/dL [facility] Albumin/Globulin [Mass ratio] 1.7 {ratio} [facility] ALP [Catalytic activity/Vol] 65 U/L 37 - 153 U/L [facility] ALT [Catalytic activity/Vol] 9 U/L 6 - 29 U/L [facility] AST [Catalytic activity/Vol] 12 U/L 10 - 35 U/L [facility] Bilirubin [Mass/Vol] 0.5 mg/dL 0.2 - 1 .2 mg/dL [facility] Calcium [Mass/Vol] 9.5 mg/dL 8.6 - 10. 4 mg/dL [facility] Chloride [Moles/Vol] 105 mmol/L 98 - 11 0 mmol/L [facility] CO2 [Moles/Vol] 28 mmol/L 20 - 32 mmol/L [facility] Creatinine [Mass/Vol] 1.1 mg/dL High 0.60 - 0.95 mg/dL [facility] GFR/1.73 sq M.predicted among non-blacks MDRD (S/P/Bld) [Vol rate/Area] 49 mL/min/{1.73_m2} Low > OR = 60 mL/min/1.73m 2 [facility] Globulin (S) [Mass/Vol] 2.4 g/dL N [facility] Glucose [Mass/Vol] 98 mg/dL 65 - 99 mg/dL [facility] Comment on above: Fasting reference interval Potassium [Moles/Vol] 4.2 mmol/L 3.5 - 5.3 mmol/L [facility] Protein [Mass/Vol] 6.5 g/dL 6.1 - 8.1 g/dL [facility] Sodium [Moles/Vol] 142 mmol/L 135 - 146 mmol/L [facility] TSH Qn 0.89 m[IU]/L [facility] Urea nitrogen [Mass/Vol] 21 mg/dL 7 - 25 mg/dL [facility] Urea nitrogen/Creatinine [Mass ratio] 19 mg/mg [facility] Lipid 1996 panelon 4 Cholesterol [Mass/Vol] 170 mg/dL [facility] mg/dL [facility] Cholesterol in HDL [Mass/Vol] 54 mg/dL > OR = 50 [facility] Cholesterol in LDL [Mass/Vol] 93 mg/dL mg/dL (calc) [facility] Comment on above: Reference range: <10 0 Desirable range <100 mg/dL for primary prevention; <70 mg/dL for patients with CHD or diabetic patients with > or = 2 CHD risk factors. LDL-C is now calculated using the Edward-Kailee calculation, which is a validated novel method providing better accuracy than the Friedewald equation in the estimation of LDL-C. Edward HARTLEY et al. JERZY. 2013;310(19): 4142-6671 (http://education.Affinergy.com/faq/YMQ237) Cholesterol non HDL [Mass/Vol] 116 mg/dL [facility] Comment on above: For patients with di abetes plus 1 major ASCVD risk factor, treating to a non-HDL-C goal of <100 mg/dL (LDL-C of <70 mg/dL) is considered a therapeutic option. Cholesterol.total/Elly sterol in HDL [Mass ratio] 3.1 {ratio} [facility] Triglyceride [Mass/Vol] 135 mg/dL [facility] - 150 mg/dL [facility] No Panel Informationon 09-14 Interpretation and review of laboratory results Abnormal [facility] FASTING:UNKNOWN FASTING: UNKNOWN [employer] [facility] Organization Information Site ID: QPT Name: [facility] Address: [address] [place] [address], [address] [place], [place] [id number] Director: Saad Guzman MD [facility] TSH W/REFLEX TO FT4on 2023 TSH W/REFLEX TO FT4 0.89 mIU/L Normal 0.40-4.50 [facility] Comment on above: Performed By: #### 7 600, 16005, 6399 #### [facility] [address], [address] [place] [address] Shower Attendant: Saad Guzman MD Aspartate aminotransferase [ Enzymatic activity/volume] in Serum or PlasmaOrdered By: Adriana Neal on 08-21-2024 AST [Catalytic activity/Vol] 12 U/L Low 13-39 [facility] Comment on above: Performed By: #### A ST, BMP, TSH3 #### [facility] [address] [place] [address] Basic Metabolic Panelon GFR/1.73 sq M.predicted MDRD (S/P/Bld) [Vol rate/Area] 44.807 mL/min/{1.73_m2} Normal [facility] Comment on above: Performed By: #### A ST, BMP, TSH3 #### [facility] [address] [place] [id number] [place] Calcium [Mass/volume] in Ser um or PlasmaOrdered By: Adriana Neal on 08-21-2024 Calcium [Mass/Vol] 9.6 mg/dL Normal 8.6-10.3 [facility] Comment on above: Performed By: #### A ST, BMP, TSH3 #### [facility] [address] [place] [id number] [place] Carbon dioxide, total [Moles /volume] in Serum or PlasmaOrdered By: Adriana Neal on 08-21-2024 CO2 [Moles/Vol] 28.7 mmol/L Normal 21.0-31.0 [facility] Comment on above: Performed By: #### A AURELIANO ARNOLD, TSH3 #### [facility] [address] Chloride [Moles/volume] in S natali or PlasmaOrdered By: Adriana Neal on 08-21-2024 Chloride [Moles/Vol] 107 mmol/L Normal 98-107 [facility] Comment on above: Performed By: #### A AURELIANO ARNOLD, TSH3 #### [facility] [address] Creatinine [Mass/volume] in Serum or PlasmaOrdered By: Adriana Neal on 08-21-2024 Creatinine [Mass/Vol] 1.19 mg/dL Normal 0.60-1.20 [facility] Comment on above: Performed By: #### A UARELIANO ARNOLD, TSH3 #### [facility] [address] [place] [address] [place] Glucose [Mass/volume] in Ser um or PlasmaOrdered By: Adriana Neal on 08-21-2024 Glucose [Mass/Vol] 95 mg/dL Normal 70-100 [facility] Comment on above: ADA recommended refe rence rangeRandom Glucose Reference Range is dependent on time and content of last meal. Glucose of more than 200 mg/dL in a nonstressed, ambulatory subject supports the diagnosis of Diabetes Mellitus. Result Comment: [place] om Glucose Reference Range is dependent on time and content of last meal. Glucose of more than 200 mg/dL in a nonstressed, ambulatory subject supports the diagnosis of Diabetes Mellitus. ADA recommended reference range Performed By: #### A AURELIANO ARNOLD, TSH3 #### [facility] [address] No Panel InformationOrdered By: Adriana Neal on 08-21-2024 Estimated GFR (CKD-EPI) 44.807 mL/Min [facility] Creatinine Clearance (Chem N/A [facility] Potassium [Moles/volume] in Serum or PlasmaOrdered By: Adriana Neal on 08-21-2024 Potassium [Moles/Vol] 4.4 mmol/L Normal 3.5-5.1 [facility] Comment on above: Performed By: #### A AURELIANO ARNOLD, TSH3 #### [address] Serum or plasma anion gap de terminationOrdered By: Adriana Neal on 08-21-2024 Anion gap [Moles/Vol] 10.7 mmol/L Normal 6.0-15.0 [facility] Comment on above: Performed By: #### A ST BMP, TSH3 #### [address] Sodium [Moles/volume] in Ser um or PlasmaOrdered By: Adriana Neal on 08-21-2024 Sodium [Moles/Vol] 142 mmol/L Normal 136-145 [facility] Comment on above: Performed By: #### A AURELIANO ARNOLD, TSH3 #### [address] Thyrotropin [Units/volume] i n Serum or PlasmaOrdered By: Adriana Neal on 08-21-2024 TSH Qn 1.08 m[IU]/L Normal 0.45-5.33 [facility] Comment on above: Result Comment: PERF ORMED BY: [place] [address] PATHOLOGIST RADIO REPORTER SANTHOSH MOSQUEDA M.D. Performed By: #### A AURELIANO ARNOLD, TSH3 #### [address] Urea nitrogen [Mass/volume] in Serum or PlasmaOrdered By: Adriana Neal on 08-21-2024 Urea nitrogen [Mass/Vol] 24 mg/dL Normal 7-25 [facility] Comment on above: Performed By: #### A ST BMP, TSH3 #### [address] XR chest 2V*on 08-21-2024 XR chest 2V* [facility] Main [place] [address] [place] [address] XRay Report Signed Patient: Liane Alvarado MR#: [id number] : 1940 Acct:[id number] Age/Sex: 83 / F ADM Date: 08/21/24 Loc: RT Room: Type: [facility] Attending Dr: Gus Curtis MD Copies to: Gus Curtis MD Ordering Provider: Gus Curtis MD Date of Service: 08/21/24 XR/XR chest 2V*: I48.0,Z79.899 Chest 2 views CLINICAL HISTORY: High risk medication use. COMPARISON: Chest 11/08/2023 FINDINGS: Heart normal in size. Mild chronic interstitial changes. No consolidation pneumothorax pleural effusion or free air. XR/XR chest 2V* IMPRESSION: NO ACUTE CARDIOPULMONARY ABNORMALITY. Impression dictated by: Rodrigo Milligan Jr., D.O.08/21/2024 4:04 PM Dictation Location: [place] [address] Transcribed By: [facility] 08/21/24 1604 Dictated By: Rodrgio Milligan Jr, DO 08/21/24 1603 Signed By: 08/21/24 1604 Normal [facility] ECG 12 Leadon 03-02-2024 Sinus bradycardia with first-degree AV block Left anterior fascicular block LVH with secondary ST changes QTc 476 ms [facility] Work Phone: XR Chest 2 Viewson These images are not reportable by radiology and will not be interpreted by Radiologists. IMAGING Aspartate Amino Transferaseo n 11-08-2023 AST [Catalytic activity/Vol] 12 U/L Low 13-39 [facility] Comment on above: Performed By: #### B MP, AST, TSH3 #### [facility] [address] Basic Metabolic Panelon 10-19 Anion gap [Moles/Vol] 9.7 mmol/L Normal 6.0-15.0 [facility] Comment on above: Performed By: #### B MP, AST, TSH3 #### [facility] [address] [place] [id number] [place] Calcium [Mass/Vol] 9.2 mg/dL Normal 8.6-10.3 [facility] Comment on above: Performed By: #### B ISSA AST, TSH3 #### [address] Chloride [Moles/Vol] 110 mmol/L High 98-107 [facility] Comment on above: Performed By: #### B ISSA AST, TSH3 #### [facility] [address] [place] [address] [place] CO2 [Moles/Vol] 28.4 mmol/L Normal 21.0-31.0 [facility] Comment on above: Performed By: #### B ISSA AST, TSH3 #### [address] Creatinine [Mass/Vol] 0.96 mg/dL Normal 0.60-1.20 [facility] Comment on above: Performed By: #### B ISSA AST, TSH3 #### [place] [address] [place] GFR/1.73 sq M.predicted MDRD (S/P/Bld) [Vol rate/Area] 58.341 mL/min/{1.73_m2} Normal [facility] Comment on above: Performed By: #### B ISSA AST, TSH3 #### [address] Glucose [Mass/Vol] 91 mg/dL Normal 70-100 [facility] Comment on above: Result Comment: [place] Glucose Reference Range is dependent on time and content of last meal. Glucose of more than 200 mg/dL in a nonstressed, ambulatory subject supports the diagnosis of Diabetes Mellitus. ADA recommended reference range Performed By: #### B ISSA AST, TSH3 #### [place] [address] [place] Potassium [Moles/Vol] 4.1 mmol/L Normal 3.5-5.1 [facility] Comment on above: Performed By: #### B ISSA AST, TSH3 #### [place] [address] [place] Sodium [Moles/Vol] 144 mmol/L Normal 136-145 [facility] Comment on above: Performed By: #### B MP, AST, TSH3 #### [address] Urea nitrogen [Mass/Vol] 20 mg/dL Normal 7-25 [facility] Comment on above: Performed By: #### B MP, AST, TSH3 #### [address] Thyroid Stimulating Hormoneo n 11-08-2023 TSH Qn 0.92 m[IU]/L Normal 0.45-5.33 [facility] Comment on above: Result Comment: PERF ORMED BY: [place] [address] PATHOLOGIST RADIO REPORTER SANTHOSH MOSQUEDA M.D. Performed By: #### B MP, AST, TSH3 #### [address] XR chest 2V*on 11-08-2023 XR chest 2V* [facility] Main [place] [address] [place] [address] XRay Report Signed Patient: Liane Alvarado MR#: [id number] : 1940 Acct:[id number] Age/Sex: 82 / F ADM Date: 11/08/23 Loc: RT Room: Type: [facility] Attending Dr: Gus Curtis MD Copies to: Gus Curtis MD Ordering Provider: Gus Curtis MD Date of Service: 11/08/23 XR/XR [...] Haris Rivera M.D.11/08/2023 3:19 PM Dictation Location: [place] [address] Transcribed By: [facility] 11/08/23 1519 Dictated By: Haris Rivera DO 11/08/23 1519 Signed By: 11/08/23 1519 Normal [facility] Height or Weight NOT Doneon 06-04-2023 Fall risk assessment a) No falls within the last year -[facility] 250 DO Work Phone: Tobacco use status CPHS a) Yes M P-[facility] 250 DO Work Phone: Height or Weight NOT Done Yes -[facility] [employer] 250 DO Work Phone: Office Visit (Cardiology)on [...] IO EKG Electrocardiogram- 12 Lead; Status:Complete; Done: [id number] SocHx: Current every day smoker You need to quit smoking.; Status:Complete - Retrospective Authorization; Done: [id number] Tobacco Use Screening; Status:Complete; Done: [id number] Patient Instructions Please bring all medicines, vitamins, [...] Amiodarone follow up as directed Chief Complaint LIANE ALVARADO is being seen for a 6 [...] negative for complaint. Vitals Vital Signs Recorded: [id number] 02:45PM Heart Rate52, Apical [id number], LUE, Sitting [id number], LUE, Sitting Height5 ft 5 in Height [...] hepatomegaly . (more content not included)... Normal [facility] BNPon 12-28-2022 Natriuretic peptide B (Bld) [Mass/Vol] 378.0 pg/mL Normal <=1,800.0 [facility] Comment on above: Performed By: #### C MP, HSTROPN, BNP #### [facility] [address] [place], [place] [address] Dr. Brady Morales CBC AUTO DIFFon 12-28-2022 BASO # 0.1 103/ul Normal 0.0-0.1 [facility] Comment on above: Performed By: #### C BC #### [facility] [address] [place], [place] [address] Dr. Brady Morales Basophils/100 WBC (Bld) 0.9 % Normal 0.2-2.0 [facility] Comment on above: Performed By: #### C BC #### [facility] [address] [place] [address] [address] Brady Morales EO # 0.1 103/ul Normal 0.0-0.7 [facility] Comment on above: Performed By: #### C BC #### [facility] [address] [place] [address] [address] Brady Morales Eosinophils/100 WBC (Bld) 1.2 % Normal 0.9-7.0 [facility] Comment on above: Performed By: #### C BC #### [facility] [address] [place] [address] [address] Brady Morales Erythrocyte distribution width (RBC) [Ratio] 14.0 % Normal 11.0-15.0 [facility] Comment on above: Performed By: #### C BC #### [facility] [address] [place] [address] Dr. Brady Morales Hematocrit (Bld) [Volume fraction] 43.8 % Normal 36.0-48.0 [facility] Comment on above: Performed By: #### C BC #### [facility] [address] [place] [address] Dr. Brady Morales Hemoglobin (Bld) [Mass/Vol] 14.1 g/dL Normal 12.0-16.0 [facility] Comment on above: Performed By: #### C BC #### [facility] [address] [place] [address] Dr. Brady Morales IG # 0.04 10e3/ul Critically high 0.00-0.03 [facility] Comment on above: Performed By: #### C BC #### [facility] [address] [place] [address] [address] Brady Morales IG % 0.6 % Critically high 0.0-0.5 [facility] Comment on above: Performed By: #### C BC #### [facility] [address] [place] [address] Dr. Brady Morales LYMPH # 2.2 103/ul Normal 1.2-3.8 [facility] [facility] Comment on above: Performed By: #### C BC #### [facility] [address] [place] [address] Dr. Brady Morales Lymphocytes/100 WBC (Bld) 34.6 % Normal 20.5-60.0 [facility] Comment on above: Performed By: #### C BC #### [facility] [address] [place] [address] Dr. Brady Morales MANUAL DIFF REQ NO Normal [facility] Comment on above: Performed By: #### C BC #### [facility] [address] [place] [address] Dr. Brady Morales MCH (RBC) [Entitic mass] 30.4 pg Normal 26.7-34.0 [facility] Comment on above: Performed By: #### C BC #### [facility] [address] [place] [address] Dr. Brady Morales MCHC (RBC) [Mass/Vol] 32.2 g/dL Normal 29.9-35.2 [facility] Comment on above: Performed By: #### C BC #### [facility] [address] [place] [address] Dr. Brady Morales MCV (RBC) [Entitic vol] 94.4 fL Normal 81.0-99.0 [facility] Comment on above: Performed By: #### C BC #### [facility] [address] [place] [address] Dr. Brady Morales MONO # 0.4 103/ul Normal 0.3-0.8 [facility] Comment on above: Performed By: #### C BC #### [facility] [address] [place] [address] Dr. Brady Morales Monocytes/100 WBC (Bld) 6.1 % Normal 1.7-12.0 [facility] Comment on above: Performed By: #### C BC #### [facility] [address] [place] [address] Dr. Brady Morales NEUT # 3.6 103/ul Normal 1.4-6.5 [facility] Comment on above: Performed By: #### C BC #### [facility] [address] [place] [address] Dr. Brady Morales Neutrophils/100 WBC (Bld) 56.6 % Normal 43.0-75.0 [facility] Comment on above: Performed By: #### C BC #### [facility] [address] [place] [address] Dr. Brady Morales Platelet mean volume (Bld) [Entitic vol] 10.5 fL Normal 9.5-13.5 [facility] Comment on above: Performed By: #### C BC #### [facility] [address] [place] [address] Dr. Brady Morales PLT 191 103/ul Normal 150-450 [facility] Comment on above: Performed By: #### C BC #### [facility] [address] [place] [address] Dr. Brady Morales RBC 4.64 106/ul Normal 4.20-5.40 [facility] Comment on above: Performed By: #### C BC #### [facility] [address] [place] [address] Dr. Brady Morales WBC 6.4 103/ul Normal 4.0-11.0 [facility] Comment on above: Performed By: #### C BC #### [facility] [address] [place] [address] Dr. Brady Morales Covid-19 PCR ([facility])on 12-16 SARS-CoV-2 (COVID-19) RNA MAKAYLA+probe Ql (Unsp spec) Not detected Normal NOT DETECTED [facility] Comment on above: Result Comment: When diagnostic [...] for this test is supported by the [place] of Health and Human Service's declaration that [...] used). Performed By: #### C VDTBH #### [facility] [address] [place] [address] Dr. Brady Morales PROF 14(COMP METB)on 023 Albumin [Mass/Vol] 3.4 g/dL Normal 3.4-5.0 [facility] Comment on above: Performed By: #### C MP, HSTROPN, BNP #### [facility] [address] [place] [address] Dr. Brady Morales Albumin/Globulin [Mass ratio] 1.0 {ratio} Normal [facility] Comment on above: Performed By: #### C MP, HSTROPN, BNP #### [facility] [address] [place] [address] Dr. Brady Morales ALP [Catalytic activity/Vol] 58 U/L Normal 46-116 [facility] Comment on above: Performed By: #### C MP, HSTROPN, BNP #### [facility] [address] [place] [address] Dr. Brady Morales ALT [Catalytic activity/Vol] 21 U/L Normal 14-59 [facility] Comment on above: Performed By: #### C MP, HSTROPN, BNP #### [facility] [address] [place] [address] Dr. Brady Morales Anion gap [Moles/Vol] 9.5 mmol/L Normal [facility] Comment on above: Performed By: #### C MP, HSTROPN, BNP #### [facility] [address] [place] [address] Dr. Brady Morales AST [Catalytic activity/Vol] 19 U/L Normal 15-37 [facility] Comment on above: Performed By: #### C MP, HSTROPN, BNP #### [facility] [address] [place] [address] Dr. Brady Morales Bilirubin [Mass/Vol] 0.3 mg/dL Normal 0.2-1.0 [facility] Comment on above: Performed By: #### C MP, HSTROPN, BNP #### [facility] [address] [place] [address] Dr. Brady Morales Calcium [Mass/Vol] 9.4 mg/dL Normal 8.5-10.1 [facility] Comment on above: Performed By: #### C MP, HSTROPN, BNP #### [facility] [address] [place] [address] Dr. Brady Morales Chloride [Moles/Vol] 108 mmol/L Critically high 98-107 [facility] Comment on above: Performed By: #### C MP, HSTROPN, BNP #### [facility] [address] [place] [address] Dr. Brady Morales CO2 [Moles/Vol] 28.5 mmol/L Normal 21.0-32.0 [facility] Comment on above: Performed By: #### C MP, HSTROPN, BNP #### [facility] [address] [place] [address] Dr. Brady Morales Creatinine [Mass/Vol] 0.89 mg/dL Normal 0.55-1.02 [facility] Comment on above: Performed By: #### C MP, HSTROPN, BNP #### [facility] [address] [place] [address] Dr. Brady Morales EGFR-AF CANADIAN >60 Normal >=60 [facility] Comment on above: Performed By: #### C MP, HSTROPN, BNP #### [facility] [address] [place] [address] Dr. Brady Morales EGFR-NON AF CANADIAN =60 Normal >=60 [facility] Comment on above: Performed By: #### C MP, HSTROPN, BNP #### [facility] [address] [place] [address] Dr. Brady Morales Globulin (S) [Mass/Vol] 3.3 g/dL Normal [facility] Comment on above: Performed By: #### C MP, HSTROPN, BNP #### [facility] [address] [place] [address] Dr. Brady Morales Glucose [Mass/Vol] 101 mg/dL Normal 74-106 [facility] Comment on above: Performed By: #### C MP, HSTROPN, BNP #### [facility] [address] [place] [address] Dr. Brady Morales Potassium [Moles/Vol] 4.0 mmol/L Normal 3.5-5.1 [facility] Comment on above: Performed By: #### C MP, HSTROPN, BNP #### [facility] [address] [place] [address] Dr. Brady Morales Protein [Mass/Vol] 6.7 g/dL Normal 6.4-8.2 [facility] Comment on above: Performed By: #### C MP, HSTROPN, BNP #### [facility] [address] [place] [address] Dr. Brady Morales Sodium [Moles/Vol] 142 mmol/L Normal 136-145 [facility] Comment on above: Performed By: #### C MP, HSTROPN, BNP #### [facility] [address] [place] [address] Dr. Brady Morales Urea nitrogen [Mass/Vol] 22.0 mg/dL Critically high 7.0-18.0 [facility] Comment on above: Performed By: #### C MP, HSTROPN, BNP #### [facility] [address] [place] [address] Dr. Brady Morales Urea nitrogen/Creatinine [Mass ratio] 24.7 mg/mg Normal [facility] Comment on above: Performed By: #### C MP, HSTROPN, BNP #### [facility] [address] [place] [address] Dr. Brady Morales PROTIMEon 12-28-2022 INR Coag (PPP) [Relative time] {INR} Normal [facility] Comment on above: Performed By: #### P TT, PT #### [facility] [address] [place] [address] Dr. Brady Morales INR GUIDELINES SEE BELOW Normal [facility] Comment on above: Result Comment: PIERRE RED INR: 2.0 - 3.0 CONDITIONS NOT LISTED BELOW 2.5 - 3.5 FOR PROSTHETIC HEART VALVE REPLACEMENT 2.5 - 3.5 RECURRENT THROMBOSIS Performed By: #### P TT, PT #### [facility] [address] [place] [address] Dr. Brady Morales PT Coag (PPP) [Time] 9.8 s Normal 9.0-11.6 [facility] Comment on above: Performed By: #### P TT, PT #### [facility] [address] [place] [address] Dr. Brady Morales PTTon 12-28-2022 aPTT Coag (Bld) [Time] 25.4 s Normal 22.3-36.2 [facility] Comment on above: Performed By: #### P TT, PT #### [facility] [address] [place] [address] Dr. Brady Morales TROPONIN, HIGH SENSITIVITYon 12-28-2022 HSTROP 11.6 pg/mL Normal 4.0-51.3 [facility] Comment on above: Result Comment: CUT- OFF POINTS HAVE BEEN ESTABLISHED BASED ON THE FOURTH UNIVERSAL DEFINITIONS OF MYOCARDIAL INFARCTION. THE UPPER REFERENCE LIMIT (URL) OF TROPONIN, DEFINED THE 99TH PERCENTILE OF cTnI DISTRIBUTION IN A REFERENCE POPULATION, HAS BEEN CONFIRMED THE DECISION THRESHOLD FOR [place] DIAGNOSIS. Performed By: #### C MP, HSTROPN, BNP #### [facility] [address] [place] [address] Dr. Brady Morales XR CHEST 1 Von [...] SERENA DE JESUS Date: 2022-12-28 15:33 Normal [facility] Height or Weight NOT Doneon 12-09-2022 Adult depression screening assessment No [facility] [employer] 250 DO Work Phone: Fall risk assessment a) No falls within the last year [facility] 250 DO Work Phone: Tobacco use status CPHS a) Yes [facility] 250 DO Work Phone: Height or Weight NOT Done Yes [facility] 250 DO Work Phone: Office Visit (Cardiology)on [...] IO EKG Electrocardiogram- 12 Lead; Status:Complete; Done: [id number] SocHx: Current every day smoker Tobacco Use Screening; Status:Complete; Done: [id number] Patient Instructions Please bring all medicines, vitamins, [...] months Amiodarone follow-up per routine Chief Complaint LIANE JENNY is being seen for a 6 [...] negative for complaint. Vitals Vital Signs Recorded: [id number] 02:01PM Heart Rate55, Apical [id number], LUE, Sitting [id number], LUE, Sitting Height or Weight NOT DonePatient [...] to auscul (more content not included)... Normal [facility] Creatinine and Glomerular fi ltration rate.predicted panel (S/P/Bld)Ordered By: Gus Curtis on 09-03-2022 Creatinine [Mass/Vol] 1.01 mg/dL 0.44-1.03 [facility] Estimated glomerular filtrat ion rate (GFR) non- AmericanOrdered By: Gus Curtis on 09-03-2022 GFR/1.73 sq M.predicted among non-blacks MDRD (S/P/Bld) [Vol rate/Area] 52 mL/Min [facility] No Panel InformationOrdered By: Gus Curtis on 09-03-2022 Estimated GFR () > 60 mL/Min [facility] Comment on above: GFR estimated refere nce range: According to KDOQI guidelines, <60 ml/min/1.73m2 is sufficient to diagnose a patient with chronic kidney disease. Pharmacy Creatinine Clearance (Chem N/A [facility] No Panel Informationon 09-03 18\S\18 Normal 10-42 [facility] 250 DO Work Phone: 0.89\S\0.89 Normal 0.45-5.33 [facility] 250 DO Work Phone: Comment on above: PERFORMED BY:[facility] [place], [place] [id number] MEDICAL DIRECTORSANTHOSH MOSQUEDA M.D. 13.4\S\13.4 Normal 6.0-15.0 [facility] 250 DO Work Phone: 9.2\S\9.2 Normal 8.2-10.2 [facility] 250 DO Work Phone: 28.7\S\28.7 Normal 22.0-30.0 [facility] 250 DO Work Phone: 104\S\104 Normal 95-114 [facility] 250 DO Work Phone: 4.1\S\4.1 Normal 3.5-5.1 [facility] 250 DO Work Phone: 142\S\142 Normal 136-146 [facility] 250 DO Work Phone: > 60 Normal [facility] 250 DO Work Phone: Comment on above: GFR estimated refere nce range: According to KDOQI guidelines, <60 ml/min/1.73m2 is sufficient to diagnose a patient with chronic kidney disease. 52\S\52 Normal [facility] 250 DO Work Phone: 1.01\S\1.01 Normal 0.44-1.03 [facility] 250 DO Work Phone: 19\S\19 Normal 9-23 [facility] 250 DO Work Phone: 97\S\97 Normal 70-100 [facility] 250 DO Work Phone: Comment on above: Random Glucose Refer ence Range is dependent on time and content of last meal. Glucose of more than 200 mg/dL in a nonstressed, ambulatory subject supports the diagnosis of Diabetes Mellitus. ADA recommended reference range Radiologyon 09-03-2022 XR Chest 2 Views Normal [facility] 250 DO Work Phone: Serum or plasma anion gap de terminationOrdered By: Gus Curtis on 09-03-2022 Anion gap [Moles/Vol] 13.4 mmol/L 6.0-15.0 [facility] Serum or plasma aspartate am inotransferase measurement (enzymatic activity/volume)Ordered By: Gus Curtis on 09-03-2022 AST [Catalytic activity/Vol] 18 U/L 10-42 [facility] Serum or plasma calcium rodriguez urement (mass/volume)Ordered By: Gus Curtis on 09-03-2022 Calcium [Mass/Vol] 9.2 mg/dL 8.2-10.2 [facility] Serum or plasma chloride monica surement (moles/volume)Ordered By: Gus Curtis on 09-03-2022 Chloride [Moles/Vol] 104 mmol/L 95-114 [facility] Serum or plasma glucose rodriguez urement (mass/volume)Ordered By: Gus Curtis on 09-03-2022 Glucose [Mass/Vol] 97 mg/dL 70-100 [facility] Comment on above: ADA recommended refe rence rangeRandom Glucose Reference Range is dependent on time and content of last meal. Glucose of more than 200 mg/dL in a nonstressed, ambulatory subject supports the diagnosis of Diabetes Mellitus. Serum or plasma potassium me asurement (moles/volume)Ordered By: Gus Curtis on 09-03-2022 Potassium [Moles/Vol] 4.1 mmol/L 3.5-5.1 [facility] Serum or plasma sodium measu rement (moles/volume)Ordered By: Gus Curtis on 09-03-2022 Sodium [Moles/Vol] 142 mmol/L 136-146 [facility] Serum or plasma total carbon dioxide measurement (moles/volume)Ordered By: Gus Curtis on 09-03-2022 CO2 [Moles/Vol] 28.7 mmol/L 22.0-30.0 [facility] Serum or plasma urea nitroge n measurement (mass/volume)Ordered By: Gus Curtis on 09-03-2022 Urea nitrogen [Mass/Vol] 19 mg/dL 9- [facility] TSH DL <= 0.005 mIU/L QnOrde red By: Gus Curtis on 09-03-2022 TSH Qn 0.89 m[IU]/L 0.45-5.33 [facility] Height or Weight NOT Doneon 05-20-2022 Adult depression screening assessment No [facility] 250 DO Work Phone: Fall risk assessment a) No falls within the last year [facility] 250 DO Work Phone: Tobacco use status CPHS a) Yes [facility] 250 DO Work Phone: Height or Weight NOT Done Yes [facility] 250 DO Work Phone: Tobacco Screening.on 022 Fall risk assessment b) One or more fall s in the last year [facility] 250 DO Work Phone: Tobacco use status CPHS a) Yes [facility] 250 DO Work Phone: Tobacco Screening. Yes [facility] 250 DO Work Phone: Vital Signs Date Time Vital Sign Value Performing Clinician Facility 12-20-2024 14:27-0500 Body height 154.9 cm Neha Blanchard DPM Work Phone: [facility] 12-20-2024 14:27-0500 Body mass index (BMI) [Ratio] 32.69 kg/m2 Neha Blanchard DPM Work Phone: [facility] 12-20-2024 14:27-0500 Body weight 78.47 kg Neha Blanchard DPM Work Phone: [facility] 10-04-2024 14:29-0500 Body mass index (BMI) [Ratio] 32.69 kg/m2 Mimi Hemmer PA Work Phone: [facility] 10-04-2024 14:29-0500 Body temperature 97.5 [degF] Mimi Hemmer PA Work Phone: [facility] 10-04-2024 14:29-0500 Body weight 78.47 kg Mimi Hemmer PA Work Phone: [facility] 10-04-2024 14:29-0500 Diastolic blood pressure 75 mm[Hg] Mimi Hemmer PA Work Phone: [facility] 10-04-2024 14:29-0500 Heart rate 51 /min Mimi Hemmer PA Work Phone: [facility] 10-04-2024 14:29-0500 Respiratory rate 16 /min Mimi Hemmer PA Work Phone: [facility] 10-04-2024 14:29-0500 SaO2% (BldA) [Mass fraction] 95 % Mimi Hemmer PA Work Phone: [facility] 10-04-2024 14:29-0500 Systolic blood pressure 125 mm[Hg] Mimi Hemmer PA Work Phone: [facility] 09-13-2024 10:40-0500 Body height 154.9 cm Fernando Bowie MD Work Phone: [facility] 09-13-2024 10:40-0500 Body mass index (BMI) [Ratio] 34.58 kg/m2 Fernando Bowie MD Work Phone: [facility] 09-13-2024 10:40-0500 Body weight 83.01 kg Fernando Boiwe MD Work Phone: [facility] 09-13-2024 10:40-0500 Diastolic blood pressure 84 mm[Hg] Fernando Bowie MD Work Phone: [facility] 09-13-2024 10:40-0500 Heart rate 72 /min Fernando Bowie MD Work Phone: [facility] 09-13-2024 10:40-0500 SaO2% (BldA) [Mass fraction] 97 % Fernando Bowie MD Work Phone: [facility] 09-13-2024 10:40-0500 Systolic blood pressure 130 mm[Hg] Fernando Bowie MD Work Phone: [facility] 07-17-2024 14:15-0400 Body height 154.9 cm Neha Blanchard DPM Work Phone: [facility] 07-17-2024 14:15-0400 Body mass index (BMI) [Ratio] 34.12 kg/m2 Neha Blanchard DPM Work Phone: [facility] 07-17-2024 14:15-0400 Body weight 81.92 kg Neha Blanchard DPM Work Phone: [facility] 03-01-2024 16:13-0400 Diastolic blood pressure 88 mm[Hg] Gus Curtis MD Work Phone: [facility] 03-01-2024 16:13-0400 Heart rate 52 /min Gus Curtis MD Work Phone: [facility] 03-01-2024 16:13-0400 Systolic blood pressure 190 mm[Hg] uGs Curtis MD Work Phone: [facility] 06-04-2023 14:45-0400 Body height 165.1 cm Fernando Bowie Work Phone: [facility] 250 DO Work Phone: 06-04-2023 14:45-0400 Body mass index (BMI) [Ratio] Medical Reason Not Done Fernando Bowie Work Phone: [facility] 250 DO Work Phone: 06-04-2023 14:45-0400 Diastolic blood pressure 84 mm[Hg] Fernando Bowie Work Phone: [facility] 250 DO Work Phone: 06-04-2023 14:45-0400 Heart rate 52 /min Fernando Bowie Work Phone: [facility] 250 DO Work Phone: 06-04-2023 14:45-0400 Systolic blood pressure 130 mm[Hg] Fernando Bowie Work Phone: [facility] 250 DO Work Phone: 12-09-2022 14:01-0500 Body mass index (BMI) [Ratio] Patient Reason Not Done Gus Curtis MD Work Phone: [facility] 250 DO Work Phone: 12-09-2022 14:01-0500 Diastolic blood pressure 58 mm[Hg] Gus Curtis MD Work Phone: [facility] 250 DO Work Phone: 12-09-2022 14:01-0500 Heart rate 55 /min Gus Curtis MD Work Phone: [facility] 250 DO Work Phone: 12-09-2022 14:01-0500 Systolic blood pressure 114 mm[Hg] Gus Curtis MD Work Phone: [facility] 250 DO Work Phone: 05-20-2022 13:17-0400 Diastolic blood pressure 70 mm[Hg] [facility] Work Phone: [facility] 250 DO Work Phone: 05-20-2022 13:17-0400 Systolic blood pressure 140 mm[Hg] Adriana Neal [employer]CELSIOR [employer] Work Phone: [facility] 250 DO Work Phone: 05-20-2022 12:53-0400 Body height 165.1 cm Adriana Neal EXCELSIOR [employer]ACHINE [employer] Work Phone: [facility] 250 DO Work Phone: 05-20-2022 12:53-0400 Body mass index (BMI) [Ratio] Patient Reason Not Done Adriana Neal EXCELSIOR MACHINE [employer] Work Phone: [facility] 250 DO Work Phone: 05-20-2022 12:53-0400 Diastolic blood pressure 80 mm[Hg] Adriana Neal EXCELSIOR MACHINE [employer] Work Phone: [facility] 250 DO Work Phone: 05-20-2022 12:53-0400 Heart rate 59 /min Adriana Neal EXCELSIOR MACHINE [employer] Work Phone: [facility] 250 DO Work Phone: 05-20-2022 12:53-0400 Systolic blood pressure 152 mm[Hg] Adriana Neal EXCELSIOR MACHINE [employer] Work Phone: [facility] 250 DO Work Phone: 11-06-2021 15:15-0500 Body height 165.1 cm Ivan Kern DO Work Phone: [facility] 250 DO Work Phone: 11-06-2021 15:15-0500 Diastolic blood pressure 70 mm[Hg] Ivan Kern DO Work Phone: [facility] 250 DO Work Phone: 11-06-2021 15:15-0500 Heart rate 54 /min Ivan Kern DO Work Phone: [facility] 250 DO Work Phone: 11-06-2021 15:15-0500 Systolic blood pressure 134 mm[Hg] Ivan Kern DO Work Phone: [facility] 250 DO Work Phone: Encounters Encounter Date Encounter Type Care Provider Facility Start: 12-20-2024 End: 12-20-2024 ambulatory NEHA BLANCHARD Not Available Start: 12-20-2024 End: 12-20-2024 Patient encounter procedure Neha Blanchard DPM Work Phone: [facility] Comment on above: Dermatophytosis of n ail (Primary Dx); Dystrophic nail; Pain around toenail, right foot; Pain around toenail, left foot Start: 11-21-2024 End: 11-21-2024 ambulatory [facility] Start: 10-04-2024 End: 10-04-2024 Office outpatient visit 15 minutes Mimi GONZALEZ Work Phone: [facility] Comment on above: Viral URI with cough (Primary Dx); Need for vaccination Start: 10-04-2024 End: 10-04-2024 ambulatory MIMI DSOUZA Not Available Start: 10-04-2024 End: 10-04-2024 Bamboo flowsheet Mimi Dsouza PA Work Phone: [facility] Start: 10-04-2024 End: 10-04-2024 Bamboo flowsheet Mimi Dsouza PA Work Phone: [facility] Start: 09-13-2024 End: 09-13-2024 Bamboo flowsheet Fernando Bowie MD Work Phone: [facility] Start: 09-13-2024 End: 09-13-2024 Bamboo flowsheet Fernando Bowie MD Work Phone: [facility] Start: 09-13-2024 End: 09-13-2024 Office outpatient visit 25 minutes Fernando Bowie MD Work Phone: [facility] Comment on above: Benign essential hyp ertension (CMS/HCC) (Primary Dx); Primary osteoarthritis of right hip; Chronic kidney disease, stage 2 (mild); Paroxysmal atrial fibrillation (I48.0); Peripheral vascular disease, unspecified (I73.9); Mixed hyperlipidemia (CMS/HCC); Acquired hypothyroidism (CMS/HCC) Start: 09-13-2024 End: 09-13-2024 ambulatory FERNANDO BOWIE Not Available Start: 09-01-2024 End: 09-01-2024 Subsequent hospital visit by physician Rad External Film EF RAD EXTERNAL FILM VIRTUAL Comment on above: Paroxysmal atrial fi brillation (Multi); High risk medication use Start: 08-21-2024 End: 08-21-2024 Patient encounter procedure II Fernando Bowie Work Phone: [facility] Work Phone: Start: 08-21-2024 End: 08-21-2024 ambulatory II Fernando Bowie Work Phone: [facility] [facility] Work Phone: Start: 07-17-2024 End: 07-17-2024 Patient encounter procedure Neha Blanchard DPM Work Phone: [facility] Comment on above: Dermatophytosis of n ail (Primary Dx); Dystrophic nail; Pain around toenail, right foot; Pain around toenail, left foot Start: 07-17-2024 End: 07-17-2024 ambulatory NEHA BLANCHARD Not Available Start: 07-17-2024 End: 07-17-2024 Bamboo flowsheet Neha Blanchard DPM Work Phone: [facility] Start: 07-17-2024 End: 07-17-2024 Bamboo flowsheet Neha Blanchard DPM Work Phone: [facility] Start: 05-31-2024 End: 05-31-2024 ambulatory MIMI DSOUZA Not Available Start: 05-01-2024 End: 05-01-2024 ambulatory FERNANDO BOWIE Not Available Start: 03-30-2024 End: 03-30-2024 ambulatory NEHA BLANCHARD Not Available Start: 03-01-2024 End: 03-01-2024 Office outpatient visit 25 minutes Gus Curtis MD Work Phone: [facility] Comment on above: Paroxysmal atrial fi brillation (Multi); Hyperlipidemia, unspecified hyperlipidemia type; Essential hypertension; Cerebrovascular accident (CVA), unspecified mechanism (Multi); High risk medication use; Current every day smoker Start: 03-01-2024 End: 09-01-2024 ambulatory GUS CURTIS [facility] Start: 02-01-2024 End: 02-01-2024 ambulatory MIMI DSOUZA Not Available Start: 12-27-2023 End: 12-27-2023 ambulatory FERNANDO BOWIE Not Available Start: 11-08-2023 Non-patient / Non-visit [facility] Work Phone: Start: 11-08-2023 End: 11-08-2023 ambulatory Gus Curtis Facility:[facility] Start: 06-04-2023 Office outpatient vi sit 25 minutes Fernando Bowie Work Phone: [facility] 250 DO Work Phone: Start: 06-04-[address] Fernando Bowie II Facility: Start: 02-01-2023 Rx Renewal Gus borges MD Work Phone: [facility] 250 DO Work Phone: Start: 01-13-2023 Patient encounter procedure Gus Curtis MD Work Phone: [facility] 250 DO Work Phone: Start: 12-28-2022 End: 12-28-2022 ambulatory VALERIE BOONE . Facility: Start: 12-09-2022 Office outpatient vi sit 25 minutes Gus Curtis MD Work Phone: [facility] 250 DO Work Phone: Start: 12-09-[address] Gus Curtis II Facility: Start: 09-04-2022 Chart Update Gus borges MD Work Phone: [facility] 250 DO Work Phone: Start: 09-03-2022 End: 09-03-2022 ambulatory II Fernando Bowie Work Phone: [facility] Work Phone: Start: 09-03-2022 End: 09-03-2022 Patient encounter procedure II Fernando Bowie Work Phone: [facility] Start: 08-10-2022 Rx Renewal Adriana rodrigues [employer]OR [employer]ACHINE [employer] V[employer]OR Work Phone: [facility] 250 DO Work Phone: Start: 08-07-2022 End: 08-07-2022 ambulatory VALERIE BOONE . Facility: Start: 07-17-2022 Patient encounter procedure Gus Curtis MD Work Phone: [facility] 600 DO Work Phone: Start: 05-20-2022 Office outpatient vi sit 25 minutes Adriana Neal EXCELSIOR MACHINE FE[employer]ER[employer]UIT VENDOR Work Phone: [facility] 250 DO Work Phone: Start: 11-06-2021 Office outpatient vi sit 25 minutes Ivan Kern DO Work Phone: [facility] 250 DO Work Phone: Start: 10-31-2021 Patient encounter procedure Ivan Kern DO Work Phone: [facility] 600 DO Work Phone: Radionuclide heart s tudy normal Adriana Neal EXCELSIOR MACHINE FEEDER-FRUIT VENDOR Work Phone: [facility] 250 DO Work Phone: Procedures Date Procedure Procedure Detail Performing Clinician Start: 09-13-2024 Complete blood count with white cell differential, automated Fernando Bowie MD Work Phone: Start: 09-13-2024 Comprehensive metabo lic panel Fernando Bowie MD Work Phone: Start: 09-13-2024 Lipid panel Fernando britton MD Work Phone: Start: 09-13-2024 TSH W/REFLEX TO FT4 Pito iel Cady Bowie MD Work Phone: Start: 08-21-2024 Plain chest X-ray II Sagar jose Bowie Work Phone: Start: 03-01-2024 XR CHEST 2 VIEWS KATHRYN CURTIS Start: 03-01-2024 ECG 12-LEAD GUS GANNON Start: 03-01-2024 Radiologic exam ches t 2 views Gus Curtis MD Start: 03-01-2024 Ecg routine ecg w/le ast 12 lds w/i&r Gus Curtis MD Work Phone: Start: 09-03-2022 Plain chest X-ray II Sagar jose Bowie Work Phone: Total colonoscopy Ivan Jolene charlee MANCUSO Work Phone: Comment on above: ONSET DATE 18OCT2010 ; Plan of Treatment Date Care Activity Detail Author Start: 03-29-2025 End: 03-29-2025 Patient encounter procedure 03/29/2025 2:30 PM EDT Procedure Visit [facility] [address] [place] [id number] Neha Blanchard DPM [address] [place], [place] [id number] [facility] Start: 01-10-2025 End: 01-10-2025 Patient encounter procedure 01/10/2025 9:45 AM EDT Office Visit [facility] [address] [place] [phone] Fernando Bowie MD [address] [place] [address] [facility] Start: 11-21-2024 End: 11-21-2024 Patient encounter procedure 11/21/2024 1:00 PM EST Office Visit [facility] [address] [place] [address] Adriana Neal, EXCELSIOR MACHINE FEEDER[employer]UIT VENDOR [address] [place] [address] [facility] Start: 11-06-2024 End: 11-06-2024 Patient encounter procedure 11/06/2024 1:15 PM EST Procedure Visit [facility] [address] [place] [phone] Neha Blanchard, DPM [address] [place], [place] [id number] [facility] Start: 10-04-2024 End: 10-04-2024 Patient encounter procedure 10/04/2024 2:30 PM EST Office Visit [facility] [address] [facility] [address] [place] [address] Mimi Dsouza PA [address] [facility] [address] [place] [address] Arrived [facility] Comment on above: Arrived Start: 09-13-2024 End: 09-13-2024 Patient encounter procedure 09/13/2024 10:45 AM EST Office Visit [facility] [address] [place] [address] Fernando Bowie MD [address] [place] [address] Arrived [facility] Comment on above: Arrived Start: 09-04-2024 End: 09-04-2024 Patient encounter procedure 09/04/2024 2:00 PM EST Office Visit [facility] [address] [place] [phone] Fernando Bowie MD [address] [place], [place] [id number] [facility] Start: 09-01-2024 End: 03-01-2025 Aspartate aminotransferase [Enzymatic activity/volume] in Serum or Plasma by With P-5'-P Aspartate Aminotransferase Lab Routine Paroxysmal atrial fibrillation (Multi) High risk medication use Expected: 09/01/2024 (Approximate), Expires: 03/01/2025 [facility] Service Area Work Phone: Comment on above: Expected: 09/01/2024 (Approximate), Expi res: 03/01/2025 Start: 09-01-2024 End: 03-01-2025 Basic metabolic 2000 panel - Serum or Plasma Basic Metabolic Panel Lab Routine Paroxysmal atrial fibrillation (Multi) High risk medication use Expected: 09/01/2024 (Approximate), Expires: 03/01/2025 [facility] Work Phone: Comment on above: Expected: 09/01/2024 (Approximate), Expi res: 03/01/2025 Start: 09-01-2024 End: 03-01-2025 Thyrotropin [Units/volume] in Serum or Plasma Thyroid Stimulating Hormone Lab Routine Paroxysmal atrial fibrillation (Multi) High risk medication use Expected: 09/01/2024 (Approximate), Expires: 03/01/2025 [facility] Work Phone: Comment on above: Expected: 09/01/2024 (Approximate), Expi res: 03/01/2025 Start: 09-01-2024 Subsequent hospital visit by physician 09/01/2024 Hospital Encounter [facility] [address] [place] [address] Paroxysmal atrial fibrillation (Multi); High risk medication use [facility] Comment on above: Paroxysmal atrial fibrillation (Multi); High risk medication use Start: 07-17-2024 End: 07-17-2024 Patient encounter procedure 07/17/2024 2:15 PM EDT Procedure Visit [facility] [address] [place] [phone] Neha Blanchard, DPM [address] [place], [place] [phone] Arrived [facility] Comment on above: Arrived Start: 06-18-2024 COVID-19 Vaccine () COVID-19 Vaccine () [facility] Start: 06-18-2024 Influenza vaccination Influenza Vaccine (#1) [facility] Start: 03-01-2024 FUV, Provider: Gus Curtis, Status: Pen, Time: 3:40 PM FUV, Provider: Gus Curtis, Status: Pen, Time: 3:40 PM [facility] 250 DO Work Phone: Start: 03-01-2024 End: 03-01-2025 Complete Pulmonary Function Test (Spirometry/DLCO/Lung Volumes) Complete Pulmonary Function Test (Spirometry/DLCO/Lung Volumes) PFT Routine Paroxysmal atrial fibrillation (Multi) High risk medication use Expected: 03/01/2024 (Approximate), Expires: 03/01/2025 [facility] Work Phone: Comment on above: Expected: 03/01/2024 (Approximate), Expi res: 03/01/2025 Start: 06-18-2023 COVID-19 Vaccine () COVID-19 Vaccine () [facility] Start: 06-04-2023 FUV, Provider: Gus Curtis, Status: Pen, Time: 2:30 PM FUV, Provider: Gus Curtis, Status: Pen, Time: 2:30 PM [facility] 250 DO Work Phone: Start: 04-24-2023 Screening for osteoporosis Bone Density Scan [facility] Start: 12-09-2022 FUV, Provider: Gus Curtis, Status: Pen, Time: 2:20 PM FUV, Provider: Gus Curtis, Status: Pen, Time: 2:20 PM [facility] 250 DO Work Phone: Start: 04-23-2022 FUV, Provider: Ivan Kern, Status: Pen, Time: 2:30 PM FUV, Provider: Ivan Kern, Status: Pen, Time: 2:30 PM [facility] 250 DO Work Phone: Start: 11-06-2021 FUV, Provider: Ivan Kern, Status: Pen, Time: 3:15 PM FUV, Provider: Ivan Kern, Status: Pen, Time: 3:15 PM [facility] Work Phone: Start: 07-08-2014 Zoster Vaccines (2 of 3) Zoster Vaccines (2 of 3) [facility] Start: 2013 RSV High Risk: (Elderly (60+) or Population) (1 - 1-dose 75+ series) RSV High Risk: (Elderly (60+) or Population) (1 - 1-dose 75+ series) [facility] Start: 1998 RSV patients and/or patients aged 60+ years (1 - 1-dose 60+ series) RSV patients and/or patients aged 60+ years (1 - 1-dose 60+ series) [facility] Start: 1960 DTaP/Tdap/Td Vaccines (1 - Tdap) DTaP/Tdap/Td Vaccines (1 - Tdap) [facility] Start: 1956 Diabetes mellitus screening Diabetes Screening [facility] Start: 1938 Lipid panel Lipid Panel [facility] Start: 1938 Medicare Annual Wellness Visit Medicare Annual Wellness Visit (AWV) [facility] Start: 1938 Thyroid stimulating hormone measurement TSH Level [facility] Immunizations Immunization Date Immunization Notes Care Provider Meka barney 09-27-2023 Influenza, High-dose Seasonal, Quadrivalent, Preservative Free Neha Blanchard DPM Work Phone: [facility] 09-27-2023 influenza virus vacc ine, unspecified formulation Neha Blanchard DPM Work Phone: [facility] 08-20-2022 influenza, high dose seasonal, preservative-free Gus Curtis MD Work Phone: [facility] 250 DO Work Phone: 08-18-2021 influenza, high dose seasonal, preservative-free Ivan Kern DO Work Phone: [facility] 250 DO Work Phone: 11-28-2020 Pfizer-BioNTech COVI D-19 Vacc 30 MCG/0.3ML Intramuscular Suspension Ivan Kern DO Work Phone: [facility] 600 DO Work Phone: 2020 Pfizer Purple Cap SARS-CoV-2 Vaccination Neha Blanchard DPM Work Phone: [facility] 11-08-2020 Pfizer-BioNTech COVI D-19 Vacc 30 MCG/0.3ML Intramuscular Suspension Ivan Kern DO Work Phone: [facility] 250 DO Work Phone: 11-07-2020 Pfizer Purple Cap SARS-CoV-2 Vaccination Neha Blanchard DPM Work Phone: [facility] 09-13-2020 Fluad Quadrivalent 0 .5 ML Intramuscular Prefilled Syringe Ivan Kern DO Work Phone: [facility] 250 DO Work Phone: 09-13-2020 influenza, injectabl e, quadrivalent, preservative free Neha Blanchard DPM Work Phone: [facility] 08-18-2020 influenza, high dose seasonal, preservative-free Ivan Kern DO Work Phone: [facility] 600 DO Work Phone: 08-12-2020 influenza, injectabl e, quadrivalent, preservative free Neha Blanchard DPM Work Phone: [facility] 09-01-2019 influenza virus vacc ine, unspecified formulation II Fernando Bowie Work Phone: [facility] 09-01-2019 influenza, high dose seasonal, preservative-free Ivan Lysdaniel DO [facility] DO Work Phone: 09-01-2019 Influenza, High-dose Seasonal, Quadrivalent, Preservative Free Neha Blanchard DPM Work Phone: [facility] 09-01-2019 pneumococcal polysaccharide vaccine, 23 valent Ivan Lyster DO Work Phone: [facility] 250 DO Work Phone: 08-31-2019 pneumococcal polysaccharide vaccine, 23 valent Neha Rusher DPM Work Phone: [facility] 08-18-2019 influenza virus vacc ine, unspecified formulation Ivan Lazarodaniel DO Work Phone: [facility] 600 DO Work Phone: 08-18-2019 pneumococcal polysaccharide vaccine, 23 valent Ivan Lyster DO Work Phone: [facility] 600 DO Work Phone: 08-04-2018 influenza virus vacc ine, unspecified formulation II Fernando Bowie Work Phone: [facility] 08-04-2018 influenza, high dose seasonal, preservative-free Ivan Lysdaniel DO Work Phone: [facility] 250 DO Work Phone: 08-04-2018 Influenza, High-dose Seasonal, Quadrivalent, Preservative Free Neha Blanchard DPM Work Phone: [facility] 07-18-2018 influenza virus vacc ine, unspecified formulation Ivan [facility]ster DO [facility] 600 DO Work Phone: 09-20-2017 seasonal influenza, intradermal, preservative free Ivan Kern DO Work Phone: [facility] 08-18-2017 influenza virus vacc ine, unspecified formulation Ivan Kern DO Work Phone: [facility] 600 DO Work Phone: 09-21-2016 influenza virus vacc ine, unspecified formulation II Fernando Bowie Work Phone: [facility] 09-21-2016 influenza, injectabl e, quadrivalent, preservative free Neha Blanchard DPM Work Phone: [facility] 08-18-2016 influenza virus vacc ine, unspecified formulation Ivan Kern DO Work Phone: [facility] 600 DO Work Phone: 04-03-2016 pneumococcal conjuga te vaccine, 13 valent Ivan Lazarodaniel DO Work Phone: [facility] 250 DO Work Phone: 02-16-2016 pneumococcal conjuga te vaccine, 13 valent Ivan Lazarodaniel DO Work Phone: [facility] 600 DO Work Phone: 08-05-2015 seasonal influenza, intradermal, preservative free Neha Blanchard DPM Work Phone: [facility] 07-18-2015 influenza virus vacc ine, unspecified formulation Ivan Concha DO Work Phone: [facility] 600 DO Work Phone: 08-16-2014 seasonal influenza, intradermal, preservative free Neha Blanchard DPM Work Phone: [facility] 05-13-2014 zoster vaccine, live Neha Blanchard DPM Work Phone: [facility] 08-03-2012 influenza virus vacc ine, whole virus Ivan Kern DO Work Phone: [facility] 250 DO Work Phone: 07-30-2010 influenza virus vacc ine, whole virus Ivan Kern DO Work Phone: [facility] 250 DO Work Phone: 10-18-2009 pneumococcal polysaccharide vaccine, 23 valent Ivan Kern DO Work Phone: [facility] 600 DO Work Phone: Payers Date Payer Category Payer Self-pay [id number] 2003 Medicare [id number] 1959 Medicare [id number] 1938 Unknown [id number] 2.16.84 [id number] 1938 Unknown [id number] 2.16.84 [id number] 1938 Unknown [id number] 2.16. [id number] 1938 Unknown [id number] 2.16. [id number] 1938 Unknown [id number] 2.16.8 40.1.257077.3.579.2.1245 1938 Unknown [id number] 2.16. 840.1.267465.3.579.2.1244 1938 Unknown [id number] 2.16.8 40.1.828895.3.579.2.1244 1938 Unknown [id number] 2.16.84 0.1.266998.3.579.2.1259 1938 Unknown [id number] 2.16.84 0.1.166183.3.579.2.1259 1938 Unknown [id number] 2.16.84 0.1.579889.3.579.2.1259 1938 Unknown [id number] 2.16.84 0.1.468862.3.579.2.1259 1938 Unknown [id number] 2.16.84 0.1.022319.3.579.2.1259 1938 Unknown [id number] 2.16.84 0.1.369936.3.579.2.1259 1938 Unknown [id number] 2.16.84 0.1.225355.3.579.2.1259 1938 Unknown [id number] 2.16.84 0.1.093813.3.579.2.9 1938 Unknown [id number] 2.16.84 [id number] Private Health Insurance [id number] Unknown Unknown [id number] Unknown [id number] 2.16.8 [id number] Unknown [id number] 2.16.8 [id number] Social History Date Type Detail Facility Start: 04-15-2023 End: 03-01-2024 Caffeine use Caffeine use [facility] 600 DO Work Phone: Comment on above: 1 CUP OF COFFEE FERNANDA Y, 1 CAN SODA DAILY; 4-5 CIGARETTES DAILY ; 2-3 CIGARETTES DAILY ; Start: 12-13-2019 Tobacco smoking stat us NHIS Smoker (finding) [facility] Start: 1940 Sex Assigned At Female F [facility] Start: 02-01-2024 End: 03-01-2024 Tobacco smoking status DEIS Smokes tobacco daily [facility] History of tobacco use Cigarette Smoker [facility] Work Phone: Start: 02-01-2024 End: 03-01-2024 Tobacco use and exposure Smokeless tobacco non-user [facility] Work Phone: Start: 03-01-2024 Alcoholic beverage intake Lifetime non-drinker (finding) [facility] Work Phone: Start: 04-15-2023 End: 03-01-2024 Tobacco use panel [facility] Work Phone: Start: 1940 [facility] Start: 02-20-2024 End: 03-01-2024 Exposure to SARS-CoV-2 (event) Not sure [facility] Start: 07-17-2024 End: 12-20-2024 Alcoholic beverage intake Ex-drinker (finding) [facility] Start: 02-01-2024 Tobacco Comment Smoking 3 ciga rettes a day [facility] Start: 05-16-2023 Alcohol Comment Caffeine intak e: 1-2 cups per day coffee, soda [facility] Clinical Notes 08-07-2022 to 12-20-2024 Neha Blanchard DPM - 12/20/2024 2:30 PM ESTLISA Helm - 10/04/2024 2:30 PM Mehdi Bowie MD - 09/13/2024 10:45 AM Bin Blanchard DPM - 07/17/2024 2:15 PM EDT Note Date & Type Note Facility 12-20-2024 History of Present illness Narrative Images from the original note were not included. Subjective Patient ID: Tonja Alvarado is a 84 y.o. female who presents for No chief complaint on file.. HPI HPI Onychomycosis/Toenail Fungus: Patient presents requesting nail care. Symptomatic toenail deformity. Location: All digits are problematic/symptomatic. Duration: Insidious, chronic condition, multiple years duration. Severity of symptoms: mild-moderate, impacting her ability to wear most shoes comfortably. Onset: gradual, without injury or trauma. Status: Symptomatic several weeks, again impacting her ability to wear most shoes and walk comfortably. Context: hard to trim , hard to reach ; self-care is difficult, ineffective and not practical; significantly increasing risk profile. Family members unable to provide care. Characteristics: elongated discolored, thickened, pain , /lifting, pressure, ingrowing; without bleeding or drainage. Relieved by: Palliative care provides effective transient relief. Previous Treatment: Status post total matricectomy right hallux; with recurrent marginal spicular growth. Risk factors: Medical comorbidities. Polypharmacy. Aspirin therapy. PAD. toenail deformity. Digital deformities. Chronic cigarette smoker. Shoe and/or digital trauma and related complications. Mobility and flexibility restraints. Aggravated by: shoe gear , pressure, walking , snagging on clothing etc.. Medications Current Outpatient Medications: amiodarone (Pacerone) 100 MG tablet, Take 100 mg by mouth every other day. Alternate with 200mg, Disp: , Rfl: amiodarone (Pacerone) 200 MG tablet, Take 1 tablet by mouth every other day. Alternate with 100mg, Disp: , Rfl: aspirin 81 MG EC tablet, Take 81 mg by mouth in the morning., Disp: , Rfl: atorvastatin (Lipitor) 40 MG tablet, Take 1 tablet (40 mg) by mouth at bedtime, Disp: 100 tablet, Rfl: 3 Evtmmih-Piaoyzcanu-Ukzooid D (Citracal Calcium Gummies) 250-115-250 MG-MG-UNIT chewable tablet, 1 (one) time each day at the same time., Disp: , Rfl: Diclofenac Sodium (Pennsaid) 2 % solution, Apply 40 drops topically in the morning and 40 drops before bedtime., Disp: 60 g, Rfl: 5 levETIRAcetam (Keppra) 250 MG tablet, Take 2 tablets (500 mg) by mouth every 12 (twelve) hours, Disp: 360 tablet, Rfl: 3 levothyroxine (Synthroid, Levoxyl) 75 MCG tablet, Take 1 tablet (75 mcg) by mouth in the morning. Take on an empty stomach.., Disp: 100 tablet, Rfl: 3 lisinopril 10 MG tablet, Take 1 tablet (10 mg) by mouth Daily, Disp: 100 tablet, Rfl: 3 nystatin (Mycostatin) 757868 UNIT/GM powder, Apply topically 2 (two) times a day, Disp: 60 g, Rfl: 1 omeprazole (PriLOSEC) [address] capsule, TAKE 1 CAPSULE BY MOUTH EVERY 12 HOURS, Disp: 200 capsule, Rfl: 3 tiZANidine (Zanaflex) 4 MG capsule, Take 4 mg by mouth in the morning and 4 mg in the evening and 4 mg before bedtime., Disp: , Rfl: Allergies Meloxicam and Penicillin g Past Surgical History Past Surgical History: Procedure Laterality Date CATARACT EXTRACTION Bilateral 11/2023 DIABETES EYE EXAM 2014 TOE SURGERY Right 2nd toe Family History Family History Problem Relation Name Age of Onset Diabetes Mother No Known Problems Father Objective General Examination: GENERAL EXAMINATION: Patient is alert and pleasant. presents by way of wheelchair; is able to transfer into the treatment chair. Her son, Roe is present. Vascular: DORSALIS PEDIS PULSE: bilaterally, faintly palpable. POSTERIOR TIBIAL PULSE: bilaterally, 0/4. TEMPERATURE GRADIENT: warm to cool. EDEMA: moderate, , non-pitting edema bilateral ankles. CAPILLARY FILLING TIME(sec): delayed. RUBOR ON DEPENDENCY: present. SHINY ATROPHIC SKIN: present , bilaterally. HAIR GROWTH: absent. Neurologic: MUSCLE POWER: Lower extremity weakness without focal deficit. SHARP SENSATION: Tactile and soft touch sensation intact. Dermatologic: SKIN FINDINGS: Intact, skin turgor is fair. HYPERTROPHIC LESION: No forefoot or digital discrete keratotic lesions are noted. NAIL PATHOLOGY: All digits, with the exception of right hallux: Toenail dystrophy, hypertrophy, elongation, discoloration, severe pincer deformity, 3-4 mm of thickness, clubbing, crumbly texture, brittleness, periungual hyperkeratosis without drainage. Right hallux: Residual marginal spicular toenail growth. MYCOSIS SCALE: total with debris, multiple digits. INTERDIGITAL MACERATION: Clean and dry. ULCER: no sign of ulceration or open wound . SKIN PATHOLOGY: texture, turgor fair. Ankle / Foot: FOOT:Right foot: Stable HAV deformity, with overlapping deformity of the 2nd digit; the bunion deformity is mildly inflamed, minimally tender, non-fluctuant, without callus formation. RANGE OF MOTION: Functional passive range of motion without pain . Radiology: Assessment/Plan 1. Symptomatic onychodystrophy/mycosis all digits 2. Total matricectomy right hallux by history; with residual recurrent spicular toenail growth. 3. Acquired deformity 2nd digit right foot; resolution of sub-lesional bursitis. 4. CVA by history 5. Chronic cigarette smoker: >60 pack years 6. Chronic, stable PAD/vasculopathy (Q8) Plan: Notes: Conservative and palliative care is preferred and again indicated. Hygiene measures and appropriate footwear discussed. Smoking reduction/cessation is encouraged. Procedure: Toenail Debridement: Aseptic technique: power/manual instrumentation: onychodebridement length and thickness, curretage of offending crypotic margins, erica-ungual debris, providing effective pressure and symptom relief, reducing shoe and digital trauma; reduciing potential risks and complications associated with the high risk dysvascular foot condition. This note was created with the assistance of a speech recognition program. While intending to generate a timely document that accurately reflects the content of the visit, no guarantee can be provided that every grammatical or spelling mistake has been or will be identified or corrected. Thank you for your understanding. Neha Blanchard DPM documented in this encounter [facility] 12-20-2024 Instructions Neha Blanchard DPM - 12/20/2024 2:30 PM EST As noted documented in this encounter [facility] 10-04-2024 History of Present illness Narrative Images from the original note were not included. Flowsheet Row Patient Outreach from 09/29/2024 in [facility] with Chelita Joaquin RN Hospital Information ED, Hospital or Group Home Facility Discharge? ED Patient has been contacted within 1 week of being seen in the ED Yes Diagnosis Upper respiratory infection Discharge Date 09/25/24 Discharged To: Home Setting Discharge Hospital [facility] Engagement Call Start Time 153 Admission Date 09/25/24 Medications Discharge medications reviewed and reconciled from hospital? Not applicable Does the patient have all medications ordered at discharge? Not applicable Is the patient taking all medications as directed (includes completed medication regime)? Yes Appointments Does the patient have a primary care provider? Yes [er follow up on 10/04 at 2:30 pm] Nursing Interventions Verified appointment date/time/provider Self Management Does patient have home health no Patient Teaching Does the patient have access to their discharge instructions? Yes [no changes made] What is the patient's perception of their health status since discharge? Improving Is the patient/caregiver able to teach back the hierarchy of who to call/visit for symptoms/problems? PCP, Specialist, Home Health nurse, Urgent Care, ED, 911 Yes Wrap Up Wrap Up Additional Comments pt reports she is feeling better. Subjective Patient ID: Tonja Alvarado is a 83 y.o. female who presents for an ER follow up. Tonja is in today for an ER follow up from 09/25 when she went in for difficulty breathing/wheezing, states she feels better than she did but still has a cough. Was not put on any medication from ER, she was told it was a virus and would work its self out. Cough is occasionally productive. Pt states they did lab work and CXR, told her it was alright. Gave her a breathing treatment. Taking Robitussin as needed, it is helpful. Mostly takes it at night. Is staying hydrated, water, coffee, and pepsi. Current Outpatient Medications on File Prior to Visit Medication Sig Dispense Refill amiodarone (Pacerone) 100 MG tablet Take 100 mg by mouth every other day. Alternate with 200mg amiodarone (Pacerone) 200 MG tablet Take 1 tablet by mouth every other day. Alternate with 100mg aspirin 81 MG EC tablet Take 81 mg by mouth in the morning. atorvastatin (Lipitor) 40 MG tablet Take 1 tablet (40 mg) by mouth at bedtime 100 tablet 3 Mrvxetm-Jrhcbbujpn-Uagqkrm D (Citracal Calcium Gummies) 250-115-250 MG-MG-UNIT chewable tablet 1 (one) time each day at the same time. Diclofenac Sodium (Pennsaid) 2 % solution Apply 40 drops topically in the morning and 40 drops before bedtime. 60 g 5 levETIRAcetam (Keppra) 250 MG tablet Take 2 tablets (500 mg) by mouth every 12 (twelve) hours 360 tablet 3 lisinopril 10 MG tablet Take 1 tablet (10 mg) by mouth Daily 100 tablet 3 nystatin (Mycostatin) 411993 UNIT/GM powder Apply topically 2 (two) times a day 60 g 1 omeprazole (PriLOSEC) [address] capsule TAKE 1 CAPSULE BY MOUTH EVERY 12 HOURS 200 capsule 3 tiZANidine (Zanaflex) 4 MG capsule Take 4 mg by mouth in the morning and 4 mg in the evening and 4 mg before bedtime. levothyroxine (Synthroid, Levoxyl) 75 MCG tablet Take 1 tablet (75 mcg) by mouth in the morning. Take on an empty stomach.. 100 tablet 3 No current facility-administered medications on file prior to visit. I have reviewed and reconciled the history and medication list with the patient today. Allergies Allergen Reactions Meloxicam Diarrhea Penicillin G Unknown Social History Tobacco Use Smoking status: Every Day Types: Cigarettes Smokeless tobacco: Never Tobacco comments: Smoking 3 cigarettes a day Vaping Use Vaping status: Never Used Substance Use Topics Alcohol use: Not Currently Comment: Caffeine intake: 1-2 cups per day coffee, soda Drug use: Never Family History Problem Relation Name Age of Onset Diabetes Mother No Known Problems Father Past Medical History: Diagnosis Date A-fib ([facility]) Cellulitis 07/2017 left lower ext. Compression fracture of T10 vertebra (HCC) ([facility]) 12/04/2019 COPD (chronic obstructive pulmonary disease) ([facility]) Dementia ([facility] Disease of thyroid gland ([facility]) GERD (gastroesophageal reflux disease) History of medical problems 07/2018 Right 4th-6th Rib Fractures, RLL Pneumonia Hyperlipemia ([facility]) Hypertension ([facility]) IBS (irritable bowel syndrome) Reflux esophagitis Stroke ([facility]) 2014 and 2016 Past Surgical History: Procedure Laterality Date CATARACT EXTRACTION Bilateral 11/2023 DIABETES EYE EXAM 2014 TOE SURGERY Right 2nd toe Visit Vitals BP 125/75 Pulse 51 Temp 97.5 F Resp 16 Wt 173 lb SpO2 95% BMI 32.69 kg/m Smoking Status Every Day BSA 1.84 m Review of Systems Constitutional: Negative for chills, fatigue and fever. Respiratory: Positive for cough. Negative for shortness of breath and wheezing. Cardiovascular: Negative for chest pain, palpitations and leg swelling. Gastrointestinal: Negative for abdominal pain, constipation, diarrhea, nausea and vomiting. Skin: Negative for rash. Objective Physical Exam Constitutional: General: She is not in acute distress. Appearance: Normal appearance. She is well-developed. HENT: Head: Normocephalic and atraumatic. Eyes: General: No scleral icterus. Conjunctiva/sclera: Conjunctivae normal. Cardiovascular: Rate and Rhythm: Normal rate and regular rhythm. Heart sounds: Normal heart sounds. No murmur heard. Pulmonary: Effort: Pulmonary effort is normal. No respiratory distress. Breath sounds: Normal breath sounds. No wheezing, rhonchi or rales. Comments: Occasional cough noted Skin: General: Skin is warm and dry. Neurological: General: No focal deficit present. Mental Status: She is alert and oriented to person, place, and time. Gait: Gait abnormal (Wheelchair for ambulation). Psychiatric: Mood and Affect: Mood normal. Behavior: Behavior normal. Assessment/Plan Diagnoses and all orders for this visit: Viral URI with cough Symptoms are improving at this time. Lungs are clear. She can continue with Robitussin as needed. Stay hydrated, get plenty of rest. Contact office if symptoms do not continue to improve/resolve. Need for vaccination Provide pt with Flu shot today at her request. She tolerated this well. Unable to view ER note prior to today's visit. Follow up for Appointment As Scheduled. documented in this encounter [facility] 09-13-2024 History of Present illness Narrative Images from the original note were not included. Subjective Patient ID: Tonja Alvarado is a 83 y.o. female who presents for Hypertension. Hypertension Patient is here for follow-up of elevated blood pressure. She is not exercising and is not adherent to a low-salt diet. Cardiac symptoms: none. Patient denies chest pain, claudication, irregular heart beat, near-syncope, orthopnea, palpitations, paroxysmal nocturnal dyspnea, syncope, and tachypnea. Cardiovascular risk factors: advanced age (older than 55 for men, 65 for women), diabetes mellitus, hypertension, sedentary lifestyle, and smoking/ tobacco exposure. Hypertension Pertinent negatives include no chest pain, palpitations or shortness of breath. Current Outpatient Medications on File Prior to Visit Medication Sig Dispense Refill amiodarone (Pacerone) 100 MG tablet Take 100 mg by mouth every other day. Alternate with 200mg amiodarone (Pacerone) 200 MG tablet Take 1 tablet by mouth every other day. Alternate with 100mg aspirin 81 MG EC tablet Take 81 mg by mouth in the morning. atorvastatin (Lipitor) 40 MG tablet Take 1 tablet (40 mg) by mouth at bedtime 100 tablet 3 Smmkjjz-Kudxzymnbs-Taryzkd D (Citracal Calcium Gummies) 250-115-250 MG-MG-UNIT chewable tablet 1 (one) time each day at the same time. Diclofenac Sodium (Pennsaid) 2 % solution Apply 40 drops topically in the morning and 40 drops before bedtime. 60 g 5 levETIRAcetam (Keppra) 250 MG tablet Take 2 tablets (500 mg) by mouth every 12 (twelve) hours 360 tablet 3 levothyroxine (Synthroid, Levoxyl) 75 MCG tablet Take 1 tablet (75 mcg) by mouth in the morning. Take on an empty stomach.. 100 tablet 3 lisinopril 10 MG tablet Take 1 tablet (10 mg) by mouth Daily 100 tablet 3 nystatin (Mycostatin) 915309 UNIT/GM powder Apply topically 2 (two) times a day 60 g 1 omeprazole (PriLOSEC) [address] capsule TAKE 1 CAPSULE BY MOUTH EVERY 12 HOURS 200 capsule 3 tiZANidine (Zanaflex) 4 MG capsule Take 4 mg by mouth in the morning and 4 mg in the evening and 4 mg before bedtime. No current facility-administered medications on file prior to visit. I have reviewed and reconciled the history and medication list with the patient today. Allergies Allergen Reactions Meloxicam Diarrhea Penicillin G Unknown Social History Tobacco Use Smoking status: Every Day Types: Cigarettes Smokeless tobacco: Never Tobacco comments: Smoking 3 cigarettes a day Vaping Use Vaping status: Never Used Substance Use Topics Alcohol use: Not Currently Comment: Caffeine intake: 1-2 cups per day coffee, soda Drug use: Never Family History Problem Relation Name Age of Onset Diabetes Mother No Known Problems Father Past Medical History: Diagnosis Date A-fib ([facility]) Cellulitis 07/2017 left lower ext. Compression fracture of T10 vertebra (HCC) ([facility]) 12/04/2019 COPD (chronic obstructive pulmonary disease) ([facility] Dementia ([facility]) Disease of thyroid gland ([facility]) GERD (gastroesophageal reflux disease) History of medical problems 07/2018 Right 4th-6th Rib Fractures, RLL Pneumonia Hyperlipemia (CMS/HCC) Hypertension (CMS/HCC) IBS (irritable bowel syndrome) Reflux esophagitis Stroke (CMS/HCC) 2014 and 2017 Past Surgical History: Procedure Laterality Date CATARACT EXTRACTION Bilateral 11/2023 DIABETES EYE EXAM 2014 TOE SURGERY Right 2nd toe Visit Vitals BP 130/84 Pulse 72 Ht 5' 1 Wt 183 lb SpO2 97% BMI 34.58 kg/m Smoking Status Every Day BSA 1.89 m Review of Systems Respiratory: Negative for shortness of breath. Cardiovascular: Negative for chest pain and palpitations. Objective Physical Exam Constitutional: General: She is not in acute distress. Appearance: Normal appearance. She is well-developed. HENT: Head: Normocephalic and atraumatic. Eyes: General: No scleral icterus. Conjunctiva/sclera: Conjunctivae normal. Cardiovascular: Rate and Rhythm: Normal rate and regular rhythm. Heart sounds: Normal heart sounds. No murmur heard. Pulmonary: Effort: Pulmonary effort is normal. No respiratory distress. Breath sounds: Decreased air movement present. No wheezing, rhonchi or rales. Comments: Mildly harsh lung sounds Skin: General: Skin is warm and dry. Neurological: General: No focal deficit present. Mental Status: She is alert and oriented to person, place, and time. Psychiatric: Mood and Affect: Mood normal. Behavior: Behavior normal. Assessment/Plan Diagnoses and all orders for this visit: Benign essential hypertension (CMS/HCC) - This is a chronic medical condition that is stable since last assessment. No changes in treatment are suggested at this time. Primary osteoarthritis of right hip Chronic kidney disease, stage 2 (mild) - Comprehensive metabolic panel; Future - CBC and differential Paroxysmal atrial fibrillation (I48.0) - Comprehensive metabolic panel; Future - CBC and differential Peripheral vascular disease, unspecified (I73.9) Mixed hyperlipidemia (CMS/HCC) - Lipid panel; Future Acquired hypothyroidism (CMS/HCC) - TSH W/REFLEX TO FT4; Future Follow up in about 4 months (around 01/11/2025) for Routine F/U. documented in this encounter [facility] 07-17-2024 History of Present illness Narrative Images from the original note were not included. Subjective Patient ID: Tonja Alvarado is a 83 y.o. female who presents for Toenail Care and Nail care ( Tonja Alvarado is a 83 y.o. female who presents for Nail care.). HPI HPI Onychomycosis/Toenail Fungus: Patient presents requesting nail care. Symptomatic toenail deformity. Location: All digits are problematic/symptomatic. Duration: Insidious, chronic condition, multiple years duration. Severity of symptoms: mild-moderate, impacting her ability to wear most shoes comfortably. Onset: gradual, without injury or trauma. Status: Symptomatic several weeks, again impacting her ability to wear most shoes and walk comfortably. Context: hard to trim , hard to reach ; self-care is difficult, ineffective and not practical; significantly increasing risk profile. Family members unable to provide care. Characteristics: elongated discolored, thickened, pain , /lifting, pressure, ingrowing; without bleeding or drainage. Relieved by: Palliative care provides effective transient relief. Previous Treatment: Status post total matricectomy right hallux; with recurrent marginal spicular growth. Risk factors: medical comorbidities. Polypharmacy. Aspirin therapy. PAD. toenail deformity. Digital deformities. Chronic cigarette smoker. Shoe and/or digital trauma and related complications. Mobility and flexibility restraints. Aggravated by: shoe gear , pressure, walking , snagging on clothing etc.. Medications Current Outpatient Medications: amiodarone (Pacerone) 100 MG tablet, Take 100 mg by mouth every other day. Alternate with 200mg, Disp: , Rfl: amiodarone (Pacerone) 200 MG tablet, Take 1 tablet by mouth every other day. Alternate with 100mg, Disp: , Rfl: aspirin 81 MG EC tablet, Take 81 mg by mouth in the morning., Disp: , Rfl: atorvastatin (Lipitor) 40 MG tablet, Take 1 tablet (40 mg) by mouth at bedtime, Disp: 100 tablet, Rfl: 3 Bismuth Tribromoph-Petrolatum (Xeroform Petrolat Patch 4 x4 ) pads, Apply 1 patch topically Daily, Disp: 30 each, Rfl: 2 Tmmfdjh-Vjvxojhdhx-Swyjqsu D (Citracal Calcium Gummies) 250-115-250 MG-MG-UNIT chewable tablet, 1 (one) time each day at the same time., Disp: , Rfl: Diclofenac Sodium (Pennsaid) 2 % solution, Apply 40 drops topically in the morning and 40 drops before bedtime., Disp: 60 g, Rfl: 5 levETIRAcetam (Keppra) 250 MG tablet, Take 2 tablets (500 mg) by mouth every 12 (twelve) hours, Disp: 360 tablet, Rfl: 3 levothyroxine (Synthroid, Levoxyl) 75 MCG tablet, Take 1 tablet (75 mcg) by mouth in the morning. Take on an empty stomach.., Disp: 100 tablet, Rfl: 3 lisinopril 10 MG tablet, Take 1 tablet (10 mg) by mouth Daily, Disp: 100 tablet, Rfl: 3 nystatin (Mycostatin) 901932 UNIT/GM powder, Apply topically 2 (two) times a day, Disp: 60 g, Rfl: 1 omeprazole (PriLOSEC) [address] capsule, TAKE 1 CAPSULE BY MOUTH EVERY 12 HOURS, Disp: 200 capsule, Rfl: 3 tiZANidine (Zanaflex) 4 MG capsule, Take 4 mg by mouth in the morning and 4 mg in the evening and 4 mg before bedtime., Disp: , Rfl: Allergies Meloxicam and Penicillin g Past Surgical History Past Surgical History: Procedure Laterality Date CATARACT EXTRACTION Bilateral 11/2023 DIABETES EYE EXAM 2014 TOE SURGERY Right 2nd toe Family History Family History Problem Relation Name Age of Onset Diabetes Mother No Known Problems Father Objective General Examination: GENERAL EXAMINATION: Patient is alert and pleasant. presents by way of wheelchair; is able to transfer into the treatment chair. Her son, Roe is present. Vascular: DORSALIS PEDIS PULSE: bilaterally, faintly palpable. POSTERIOR TIBIAL PULSE: bilaterally, 0/4. TEMPERATURE GRADIENT: warm to cool. EDEMA: moderate, , non-pitting edema bilateral ankles. CAPILLARY FILLING TIME(sec): delayed. RUBOR ON DEPENDENCY: present. SHINY ATROPHIC SKIN: present , bilaterally. HAIR GROWTH: absent. Neurologic: MUSCLE POWER: Lower extremity weakness without focal deficit. SHARP SENSATION: Tactile and soft touch sensation intact. Dermatologic: SKIN FINDINGS: Intact, skin turgor is fair. HYPERTROPHIC LESION: No forefoot or digital discrete keratotic lesions are noted. NAIL PATHOLOGY: All digits, with the exception of right hallux: Toenail dystrophy, hypertrophy, elongation, discoloration, severe pincer deformity, 3-4 mm of thickness, clubbing, crumbly texture, brittleness, periungual hyperkeratosis without drainage. Right hallux: Residual marginal spicular toenail growth. MYCOSIS SCALE: total with debris, multiple digits. INTERDIGITAL MACERATION: Clean and dry. ULCER: no sign of ulceration or open wound . SKIN PATHOLOGY: texture, turgor fair. Ankle / Foot: FOOT:Right foot: Stable HAV deformity, with overlapping deformity of the 2nd digit; the bunion deformity is mildly inflamed, minimally tender, non-fluctuant, without callus formation. RANGE OF MOTION: Functional passive range of motion without pain . Radiology: Assessment/Plan 1. Symptomatic onychodystrophy/mycosis all digits 2. Total matricectomy right hallux by history; with residual recurrent spicular toenail growth. 3. Acquired deformity 2nd digit right foot; resolution of sub-lesional bursitis. 4. CVA by history 5. Chronic cigarette smoker: >60 pack years 6. Chronic, stable PAD/vasculopathy (Q8) Plan: Notes: Conservative and palliative care is preferred and again indicated. Hygiene measures and appropriate footwear discussed. Smoking reduction/cessation is encouraged. Procedure: Toenail Debridement: Aseptic technique: power/manual instrumentation: onychodebridement length and thickness, curretage of offending crypotic margins, erica-ungual debris, providing effective pressure and symptom relief, reducing shoe and digital trauma; reduciing potential risks and complications associated with the high risk dysvascular foot condition. This note was created with the assistance of a speech recognition program. While intending to generate a timely document that accurately reflects the content of the visit, no guarantee can be provided that every grammatical or spelling mistake has been or will be identified or corrected. Thank you for your understanding. Neha Blanchard DPM documented in this encounter [facility] 07-17-2024 Instructions Neha Blanchard DPM - 07/17/2024 2:15 PM EDT As noted documented in this encounter [facility] 03-01-2024 History of Present illness Narrative Subjective Liane Alvarado is a 83 y.o. female Chief [...] the direction and in the presence of Gus Curtis MD. Provider Attestation - Scribe documentation All medical record entries made by the Scribe were at my direction and personally dictated by me. I have reviewed the chart and agree that the record accurately reflects my personal performance of the history, physical exam, discussion and plan. documented in this encounter [facility] Work Phone: 03-01-2024 Instructions Terell Hines MA - 03/01/2024 [...] of your visit. documented in this encounter [facility] Work Phone: 08-07-2022 Note PROCEDURE: XR KNEE L T 4V or > COMPARISON: None. HISTORY: Pain FINDINGS: BONES:No acute fracture or dislocation. Moderate tricompartmental osteoarthropathy with joint space narrowing and marginal osteophyte relation. Extensive chondrocalcinosis SOFT TISSUES:Negative. No visible soft tissue swelling. EFFUSION:None visible. OTHER: Vascular calcifications IMPRESSION: Moderate osteoarthritis Electronically authenticated by: HEATH CHANG Date: 2022-08-07 11:38 [facility] Evaluation note No assessment inform ation available [facility] Work Phone: Evaluation note Diagnosis Paroxysmal atrial fibrillation (Multi) Atrial fibrillation Hyperlipidemia, unspecified hyperlipidemia type Essential hypertension Unspecified essential hypertension Cerebrovascular accident (CVA), unspecified mechanism (Multi) High risk medication use Current every day smoker Paroxysmal atrial fibrillation (Multi) Atrial fibrillation High risk medication use documented in this encounter [facility] Work Phone: Evaluation note* Diagnosis Paroxysmal atrial fibrillation (Multi) Atrial fibrillation High risk medication use documented in this encounter [facility] Work Phone: Evaluation note* Diagnosis Viral URI with cough- Primary Need for vaccination Need for prophylactic vaccination and inoculation against unspecified single disease documented in this encounter [facility]* Diagnosis Dermatophytosis of nail- Primary Dystrophic nail Other specified disease of nail Pain around toenail, right foot Pain around toenail, left foot documented in this encounter [facility] HealthcareEvaluation note* Diagnosis Benign essential hypertension (CMS/HCC)- Primary Essential hypertension, benign Primary osteoarthritis of right hip Chronic kidney disease, stage 2 (mild) Paroxysmal atrial fibrillation (I48.0) Atrial fibrillation Peripheral vascular disease, unspecified (I73.9) Peripheral vascular disease, unspecified Mixed hyperlipidemia (CMS/HCC) Mixed hyperlipidemia Acquired hypothyroidism (CMS/HCC) Unspecified hypothyroidism documented in this encounter [facility] HealthcareEvaluation note* Diagnosis Dermatophytosis of nail- Primary Dystrophic nail Other specified disease of nail Pain around toenail, right foot Pain around toenail, left foot documented [facility] encounter [facility]* Mrs. Alvarado is a 80-year-old female who [...] specific cardiac complaints today. Seems to be stable. * Physical exam: * Neck: No carotid bruits are heard * Lungs: Few rhonchi * Heart: Regular rate and rhythm without extra sounds or murmurs * Extremities: No significant edema * Recommendation is continuation of current medications. No changes were made to her medications. Sheis encouraged to continue to work on stopping smoking. She is to return in 6 months. [facility] Work [facility]: History of Present illness Narrative* The patient presents with paroxysmal atrial fibrillation. The treatment strategy for this patient is rhythm control. She states her atrial fibrillation has been well controlled since the last visit. * Symptoms: denies palpitations, denies chest pain, denies exercise intolerance, denies dyspnea on exertion and denies dizziness. Associated symptoms include no syncope. * Risks: no increased risk for falling. * Medications: the patient is adherent with her medication regimen. She denies medication side effects. [facility] Ceferino DO Work Phone: History of Present illness Narrative* Patient returns in follow-up of problems as noted. In the interim she is done relatively well. She denies any symptoms of paroxysmal atrial fibrillation and it appears that amiodarone has been effective at maintaining sinus rhythm and mitigating most of her stroke risk. Amiodarone surveillance laboratories, chest x-ray, and pulmonary function studies are reviewed with her and the results are [employer] no adjustments in therapy appear necessary * In regards to other cardiac risk factors are hypertension and hyperlipidemia appear to be well controlled. In the past she had a stroke with post infarct bleed which was complicated by antithrombotictherapy. Because of this she is extremely adverse to anticoagulant therapy and I concur with her feelings in this regard. She is willing to accept any residual risk associated with her potential for paroxysmal atrial fibrillation. * Continues to smoke, and the merits of diet exercise weight loss and in particular smoking cessationwere emphasized. [place] [id number] DO Work Phone: History of Present illness NarrativePatient returns for follow-up of problems as noted. [...] and the importance of smoking cessation was emphasized.[facility] Ceferino DO Work Phone: Reason for visit Narrative* Imaging (Routine) - Authorized Specialty Diagnoses / Procedures Referred By Contac t Referred To Contact Radiology Diagnoses Paroxysmal atrial fibrillation (Multi) High risk medication use Procedures XR chest 2 views Gus Curtis MD Referral ID Status Reason Start Date Expiration Date Visits Requested Visits Authorized [id number] Authorized Perform Procedure 03/01/2024 03/01/2025 1 1 [facility] Work Phone: Chief Complaint Order sent [place] [facility] [place] due in JENNY is being seen for a 6 month follow-up of.* Here for follow-up and doing fine * TONJA ALVARADO is being seen for a 6 [...] since last evaluation. Amiodarone Order sent to [facility] [place] testing due in JENNY is being seen for a 6 month follow-up of.Amiodarone Order sent to [facility] [place] testing due in JENNY is being seen for a 6 month follow-up of.LIANE ALVARADO is being seen for a 6 [...] history of malignant neoplasm: Sister(V16.9, Z80.9) Status:Active Relationship Condition Age at Onset Recorded Date/T truman brother Myocardial infarction Unknown father Unknown mother Unknown Chief Complaint and Reason for Visit Chief Complaint z79.899 i48.0 Chief Complaint z79.899 i48.0 Chief Complaint Atrial Fibrillation, Med Use Advance Directives No Advanced Directives Records Found Advance Directive Response Recorded Date/ Time Advance Directives No August 11, 2017 8:47pm Documents on File Type Date Recorded 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 Advance Directives and Livin g Will 08/01/2018 2018-08-01 [facility] Summary Purpose Reason for Referral Specialty Diagnoses / Procedures Referred By Contac t Referred To Contact Diagnoses Paroxysmal atrial fibrillation (Multi) High risk medication use Procedures Complete Pulmonary Function Test (Spirometry/DLCO/Lung Volumes) Gus Curtis MD [address] [place] [address] 2, [address] [address] Referral ID Status Reason Start Date Expiration Date V isits Requested Visits Authorized [id number] Pending Review 03/01/2024 03/01/2025 1 1 Specialty Diagnoses / Procedures Referred By Contac t Referred To Contact Radiology Diagnoses Paroxysmal atrial fibrillation (Multi) High risk medication use Procedures XR chest 2 views Gus Curtis MD [address] [place] [address] 2, [address] [address] Referral ID Status Reason Start Date Expiration Date Visits Requested Visits Authorized [id number] Pending Review Perform Procedure 03/01/2024 03/01/2025 1 1 Specialty Diagnoses / Procedures Referred By Contac t Referred To Contact Diagnoses Paroxysmal atrial fibrillation (Multi) High risk medication use Procedures ECG 12 Lead Gus Curtis MD [address] [place] [address] 2, [address] [address] Referral ID Status Reason Start Date Expiration Date V isits Requested Visits Authorized [id number] Authorized 03/01/2024 03/01/2025 1 1 Specialty Diagnoses / Procedures Referred By Contac t Referred To Contact Cardiology Diagnoses Paroxysmal atrial fibrillation (Multi) Procedures Follow Up In Cardiology Gus Curtis MD [address] [place] [address] 2, [address] [address] Referral ID Status Reason Start Date Expiration Date V isits Requested Visits Authorized [id number] Authorized 03/01/2024 03/01/2025 1 1 Additional Source Comments Care Teams (unrecognized sec tion and content) Team Status: Active Member Role Status Dates Fernando Bowie II MD Primary Care Provider Active Team Status: Inactive Member Role Status Dates Fernando Bowie II MD Primary Care Provider Active Start: August 21, 2024 End: August 21, 2024 Gus Curtis MD Attending Provider Active Start: August 21, 2024 End: August 21, 2024 Team Status: Inactive Member Role Status Dates Fernando Bowie II MD Primary Care Provider Active Gus Curtis MD Attending Provider Active Team Status: Active Member Role Status Dates Fernando Bowie II MD Primary Care Provider Active Start: November 08, 2023 Gus Curtis MD Other Provider Active Start: November 08, 2023 Connor Nelson MD Attending Provider Active Start: November 08, 2023 [employer] Relationship Specialty Start Date End Date Fernando Bowie MD [address] [facility] [address] [place] [address] PCP - General 05/18/23 [employer] Relationship Specialty Start Date End Date Fernando Bowie MD [address] [facility] [address] [place] [address] PCP - General 05/18/23 [employer] Gr[employer] Machine Relationship Specialty Start Date End Date Fernando Bowie MD [address] [facility] [address] [place] [address] PCP - General Internal Medicine 04/06/23 Fernando Bowie MD [address] [facility] [address] [place] [address] PCP - ACO Reach 02/16/24 [employer] Relationship Specialty Start Date End Date Fernando Bowie MD [address] [facility] [address] [place] [address] PCP - General Internal Medicine 04/06/23 Fernando Bowie MD [address] [place] [address] [place] [address] PCP - ACO Reach 02/16/24 [employer] Relationship Specialty Start Date End Date Fernando Bowie MD [address] [place] [address] [place] [address] PCP - General Internal Medicine 04/06/23 Fernando Bowie MD [address] [place] [address] [place] [address] PCP - ACO Reach 02/16/24 Edge Grinder [employer] Relationship Specialty Start Date End Date Fernando Bowie MD [address] [place] [address] [place] [address] PCP - General Internal Medicine 04/06/23 Fernando Bowie MD [address] [place] [address] [place] [address] PCP - ACO Reach 02/16/24 [employer] Relationship Specialty Start Date End Date Fernando Bowie MD [address] [place] [address] [place] [address] PCP - General Internal Medicine 04/06/23 Fernando Bowie MD [address] [place] [address] [place] [address] PCP - ACO Reach 02/16/24 Edge Grinder Machine Relationship Specialty Start Date End Date Fernando Bowie MD [address] [place] [address] [place] [address] PCP - General Internal Medicine 04/06/23 Fernando Bowie MD [address] [facility] [address] [place] [address] PCP - ACO Reach 02/16/24 [employer] Relationship Specialty Start Date End Date Fernando Bowie MD [address] [place] [address] [place] [address] PCP - General Internal Medicine 04/06/23 Fernando Bowie MD [address] [facility] [address] [place] [address] PCP - ACO Reach 02/16/24 Goals (unrecognized section and content) Goals may be documented in a n alternate sectionGoals may be documented in an alternate sectionGoals may be documented in an alternate section INFORMATION SOURCE (unrecogn ized section and content) DATE CREATED AUTHOR 12/30/2022 [facility] DATE CREATED AUTHOR AUTHOR'S ORGANIZ ATION 06/05/2023 [facility] DATE CREATED AUTHOR AUTHOR'S ORGANIZ ATION 06/05/2023 [employer] DATE CREATED AUTHOR AUTHOR'S ORGANIZ ATION 09/01/2024 [facility] DATE CREATED AUTHOR AUTHOR'S ORGANIZ ATION 09/09/2024 [facility] DATE CREATED AUTHOR AUTHOR'S ORGANIZ ATION 09/16/2024 [facility] DATE CREATED AUTHOR AUTHOR'S ORGANIZ ATION 11/23/2024 [facility] DATE CREATED AUTHOR AUTHOR'S ORGANIZ ATION 12/22/2024 [facility]IC Reason for Visit (unrecogniz ed section and content) Reason Comments Follow-up 9 month Specialty Diagnoses / Procedures Referred By Isidro t Referred To Contact Diagnoses Paroxysmal atrial fibrillation (Multi) High risk medication use Procedures ECG 12 Lead Gus Curtis MD [address] [facility] 2, [place] [address] [place] [address] Referral ID Status Reason Start Date Expiration Date V isits Requested Visits Authorized [id number] Authorized 03/01/2024 03/01/2025 1 1 Reason Comments Toenail Care Nail care Tonja Alvarado is a [age] y.o. female who presents for Nail care. Reason Comments Hypertension FOR RECORDS PERTAINING TO PATIENTS WHO ARE [...] BE BASED ON THE PRIMARY CLINICAL RECORDS. [facility] [employer] provides no warranty or guarantee of the accuracy or completeness of information in this document.
[2025-01-06 13:21] VITALS: BP 187/98
[2025-01-06] MEDS: ACETAMINOPHEN 325 MG TABLET 650 MG PO (13:21)
--- NOTE | 2025-01-06 14:19 | ED_ITS ---
HPI HPI - General Adult General Chief complaint: Head Injury Stated complaint: FALL Time Seen by Provider: 01/06/25 13:01 Source: patient Mode of arrival: ambulance History of Present Illness HPI narrative: The patient have history of hypertension as well as old stroke coming to the ER after she had a fall from the couch, she was trying to reach forward to reach the remote control of the TV when she fell forward hitting the right side of her forehead as well as the need to the floor. Patient had no loss of consciousness She also was complaining of right forearm pain and bruise. The patient usually uses a wheelchair and does not ambulate because of her osteoarthritis of the knee Related Data Home Medications ?Medication ?Instructions ?Recorded ?Confirmed amiodarone 200 mg tablet 100 mg PO .every other day 07/22/23 01/06/25 atorvastatin 40 mg tablet 40 mg PO .hs 07/22/23 01/06/25 calcium carbonate-vitamin D3 1 tab .Route BID 07/22/23 01/06/25 cholecalciferol (vitamin D3) 62.5 mcg PO 07/22/23 mcg (2,500 unit) capsule omeprazole 20 mg capsule,delayed 20 mg PO BID 07/22/23 01/06/25 release aspirin 81 mg tablet,delayed 81 mg PO DAILY 09/18/23 01/06/25 release (Adult Low Dose Aspirin) levothyroxine 75 mcg tablet 75 mcg PO Q24H 09/18/23 01/06/25 lisinopril 10 mg tablet 10 mg PO Q24H 09/18/23 01/06/25 amlodipine 10 mg tablet 10 mg PO DAILY 01/06/25 01/06/25 denosumab 60 mg/mL subcutaneous mg subcut .every 6months 01/06/25 syringe (Prolia) levetiracetam 500 mg tablet 500 mg PO BID 01/06/25 01/06/25 (Keppra) zinc 50 mg tablet 50 mg PO DAILY 01/06/25 01/06/25 Allergies Allergy/AdvReac Type Severity Reaction Status Date / Time meloxicam AdvReac Intermediate Diarrhea Verified 01/06/25 13:00 penicillin G AdvReac Intermediate Unknown Verified 01/06/25 13:00 Opioid HPI Opioid Management Most Recent Opioid Data: No Data to Display Review of Systems ROS Status of ROS 10 or more systems reviewed and unremark able except as noted in history and below [facility] Medical History (Updated 01/06/25 @ 16:04 by Daphne Kumar MD) CVA (cerebral vascular accident) ?I63.9 - Cerebral infarction, unspecified (ICD-10) Seizure ?R56.9 - Unspecified convulsions (ICD-10) GERD (gastroesophageal reflux disease) ?K21.9 - Gastro-esophageal reflux disease without esophagitis (ICD-10) HTN (hypertension) ?I10 - Essential (primary) hypertension (ICD-10) High cholesterol ?E78.00 - Pure hypercholesterolemia, unspecified (ICD-10) Hypothyroidism ?E03.9 - Hypothyroidism, unspecified (ICD-10) Social History Smoking status: Current every day smoker Little interest or pleasure in doing things: not at all Feeling down, depressed, or hopeless: not at all Exam Narrative Exam Narrative: Nurses notes and vital signs reviewed and patient is not hypoxic. General: Well-appearing and in no apparent distress. Skin: Warm, dry, no pallor noted. No rash. Head: Right sided forehead bruise there is no open wound. Neck: Supple, non-tender. Cardiovascular: Regular Rate and Rhythm without murmur, gallop or rub. Respiratory: No accessory muscle use or respiratory distress. Lungs are clear to auscultation, no wheezing, rales or rhonchi Chest Wall: no tenderness Back: No midline thoracic or lumbar vertebral tenderness. No CVA tenderness Musculoskeletal: normal ROM, no calf or popliteal tenderness, the patient have significant bruising of the right forearm with tenderness upon palpation, some mild bruise to the anterior aspect of the right knee with severe arthritis obvious on examination there is no effusion GI: Abdomen is soft, non-distended. Normal bowel sounds. No masses appreciated. No tenderness to palpation. No rebound, guarding, or rigidity noted. Neurological: A&O x4. No cranial nerve dysfunction observed. No truncal at axia. Moves all extremities. Sensation intact. Psychiatric: Cooperative and interactive. Normal mood and affect. Constitutional Vital Signs, click to edit/add: Last Vital Signs Temp 98.1 F 01/06/25 12:49 Pulse 54 L 01/06/25 15:58 Resp 18 01/06/25 15:58 BP 164/80 H 01/06/25 15:58 Pulse Ox 97 01/06/25 15:58 O2 Del Method Room Air 01/06/25 12:49 Course Vital Signs Vital signs: Vital Signs Temperature 98.1 F 01/06/25 12:49 Pulse Rate 62 01/06/25 12:49 Respiratory Rate 18 01/06/25 12:49 Blood Pressure 193/100 H 01/06/25 12:49 Pulse Oximetry 98 01/06/25 12:49 Oxygen Delivery Method Room Air 01/06/25 12:49 Temperature 98.1 F 01/06/25 12:49 Pulse Rate 54 L 01/06/25 15:58 Respiratory Rate 18 01/06/25 15:58 Blood Pressure 164/80 H 01/06/25 15:58 Pulse Oximetry 97 01/06/25 15:58 Oxygen Delivery Method Room Air 01/06/25 12:49 Medical Decision Making MDM Narrative Medical decision making narrative: Ice applied to the patient's forehead as well as forearm and right knee X-ray of the patient right forearm and right humerus as well as right knee showed no acute pathology The patient CT of the cervical spine as well as CT head showed no acute pathology as well Patient was treated in the ER with Tylenol as well as tramadol for pain Patient is wheelchair-bound and she will just continue taking Tylenol for pain at home Ice treatment for the next 48 hours The patient also her son at the bedside had the plan explained to him including monitoring for any symptoms after head injury The patient is to follow up with primary care physician in next 2-3 days or to return to the emergency department should any of the signs or symptoms worsen or new symptoms develop. The patient agrees with the following Diagnosis and Treatment plan and the patient will be discharged home. Discharge Plan Discharge Chief Complaint: Head Injury Clinical Impression: Fall, Contusion of head, Contusion of knee, Contusion of forearm Patient Disposition: Home, Self-Care Time of Disposition Decision: 16:04 Condition: Good Prescriptions / Home Meds: No Action amiodarone 200 mg tablet 100 mg PO .every other day atorvastatin 40 mg tablet 40 mg PO .hs omeprazole 20 mg capsule,delayed release(DR/EC) 20 mg PO BID cholecalciferol (vitamin D3) 62.5 mcg (2,500 unit) capsule PO calcium carbonate-vitamin D3 [Caltrate 600 plus D] 1 tab .Route BID levothyroxine 75 mcg tablet 75 mcg PO Q24H lisinopril 10 mg tablet 10 mg PO Q24H aspirin [Adult Low Dose Aspirin] 81 mg tablet,delayed release (DR/EC) 81 mg PO DAILY amlodipine 10 mg tablet 10 mg PO DAILY levetiracetam [Keppra] 500 mg tablet 500 mg PO BID Prolia 60 mg/mL syringe subcut .every 6months zinc 50 mg tablet 50 mg PO DAILY Print Language: Czech Instructions: Head Injury (DC), Contusion in Adults (ED), Fall Prevention (ED) Referrals: MISSAEL MICHAEL [Primary Care Provider] - 1 week
[2025-01-06 14:43] VITALS: BP 182/90
[2025-01-06 15:58] VITALS: BP 164/80; PULSE 54; O2SAT 97
[2025-01-06] MEDS: TRAMADOL HCL 50 MG TABLET PO (16:04)
== END 2025-01-06 16:23 | disposition home or self-care (01) ==
PROVIDERS: Emergency Provider Emergency Medicine; PCP Internal Medicine
DX: S00.93XA Contusion of unspecified part of head, initial encounter (principal); S50.11XA Contusion of right forearm, initial encounter; S80.01XA Contusion of right knee, initial encounter; I10 Essential (primary) hypertension; Z99.3 Dependence on wheelchair; Z86.73 Personal history of transient ischemic attack (TIA), and cerebral infarction without residual deficits; F17.200 Nicotine dependence, unspecified, uncomplicated; W08.XXXA Fall from other furniture, initial encounter
CPT/HCPCS: 70450; 72125; 73060; 73090; 73562; 99284